=== PATIENT | female | born 1960 | race Caucasian/White ===

== ENCOUNTER 2019-12-03 14:25 | Outpatient (CLI) | payer BC, SELFPAY ==
--- NOTE | 2019-12-03 15:00 | MM_ITS ---
WS: [id number] BILATERAL SCREENING DIGITAL MAMMOGRAM WITH CAD HISTORY: SCREEN COMPARISON: 10/21/2018 and 07/21/2017 Bilateral CC and MLO views submitted. Computer aided detection analyzed. Breast composition: There are scattered areas of fibroglandular density. No suspicious masses, microc alcifications or architectural distortion. Benign scattered calcifications within each breast. MM/[place] [id number] IMPRESSION: BI-RADS: 2-Benign FOLLOW UP: 1 Year Follow-up
== END 2019-12-03 14:26 | disposition home or self-care (01) ==
LOC: RADSHAW 14:51
PROVIDERS: Family Provider Nurse Practitioner; PCP Family Medicine; Visit Provider Family Medicine
DX: Z12.31 Encounter for screening mammogram for malignant neoplasm of breast (principal)
CPT/HCPCS: 77067

== ENCOUNTER → 2020-09-11 14:32 | Outpatient (BNVA) | payer BC, SELFPAY | PROVIDERS: Family Provider Nurse Practitioner; PCP Family Medicine; Visit Provider Nurse Practitioner Family | DX: Z11.59 Encounter for screening for other viral diseases (principal); Z20.828 Contact with and (suspected) exposure to other viral communicable diseases; J06.9 Acute upper respiratory infection, unspecified | CPT/HCPCS: 87635 ==

== ENCOUNTER 2020-10-25 12:18 | Outpatient (RCR) | payer BC, SELFPAY | END 2020-10-30 23:59 | disposition home or self-care (01) | LOC: SPT 12:18 | PROVIDERS: Family Provider Nurse Practitioner; PCP Family Medicine; Referring Provider Orthopaedic Surgery; Visit Provider Orthopaedic Surgery | DX: M22.2X1 Patellofemoral disorders, right knee (principal); M22.2X2 Patellofemoral disorders, left knee | CPT/HCPCS: 97110; 97162 ==

== ENCOUNTER 2020-10-31 06:00 | Outpatient (RCR) | payer BC, SELFPAY | END 2020-11-30 23:59 | disposition home or self-care (01) | LOC: SPT 06:00 | PROVIDERS: Family Provider Nurse Practitioner; PCP Family Medicine; Referring Provider Orthopaedic Surgery; Visit Provider Orthopaedic Surgery | DX: M22.2X2 Patellofemoral disorders, left knee (principal); M22.2X1 Patellofemoral disorders, right knee | CPT/HCPCS: 97110 ==

== ENCOUNTER 2021-03-19 11:08 | Outpatient (CLI) | payer BC, SELFPAY ==
--- NOTE | 2021-03-19 11:21 | XRR_ITS ---
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 Views: 2 views. COMPARISON: 1. CR Chest 2 views* [id number] 09/30/2017 10:49 AM 2. CR Chest 2 views* [id number] 04/12/2014 2:45:36 PM FINDINGS: Tubes, catheters and devices: Thoracic neurostimulator. Lungs: No consolidation. Postoperative change in the right upper lung. Stable small benign right upper lobe granuloma. Pleural spaces: Unremarkable. No pleural effusion. No pneumothorax. Heart/Mediastinum: Unremarkable. No cardiomegaly. Bones/joints: Old thoracic compression fractures. Postoperative change in the distal right clavicle. XR/XR chest 2V* [id number] IMPRESSION: No acute findings.
== END 2021-03-19 11:09 | disposition home or self-care (01) ==
LOC: RAD 11:14
PROVIDERS: PCP Family Medicine; Visit Provider Family Medicine
DX: R07.9 Chest pain, unspecified (principal); R91.1 Solitary pulmonary nodule
CPT/HCPCS: 71046

== ENCOUNTER 2021-04-06 08:45 | Outpatient (CLI) | payer BC, SELFPAY ==
--- NOTE | 2021-04-06 08:55 | CT_ITS ---
WS: [id number] CT scan of the left elbow. Additional two-dimensional coronal and sagittal reconstruction was perform ed. 04/06/2021 Clinical Data: LOOSE BODY LEFT ELBOW JOINT Comparison: None. DLP: 555.[address] scans at [facility] use at least one of these dose optimization techniques: automat ed exposure control; mA and/or kV adjustment per patient size (includes targeted exams where dose is matched to clinical indication); or iterative reconstruction. Findings: There are 2 calcifications in the left elbow. One is adjacent to the coronoid process of the ulna italo suring 0.2 x 1.0 cm. There is a second smaller calcification measuring 0.2 cm between the coronoid pr ocess and the radial head. There are no fractures or dislocations. No bone destruction or erosion is seen. The soft tissues are normal. CT/CT elbow LT wo con* 10002 Impression: 1. Two small calcifications in the left elbow joint. 2. One calcification is adjacent to the coronoid process measuring 0.2 x 1.0 cm and the other is 0.2 cm lying between the coronoid process and the radial head .
== END 2021-04-06 08:46 | disposition home or self-care (01) ==
PROVIDERS: PCP Family Medicine; Visit Provider Orthopaedic Surgery
DX: M24.022 Loose body in left elbow (principal)
CPT/HCPCS: 73200

== ENCOUNTER 2021-04-23 08:02 | Outpatient (CLI) | payer BC, SELFPAY ==
--- NOTE | 2021-04-23 08:11 | XR_ITS ---
WS: [id number] Exam: XR chest 2V* [id number] Date/Time of Exam: 04/23/2021 8:12 AM Reason For Exam: PRE OP Comparison 03/19/2021. The lungs are fully expanded and clear. Normal cardiomediastinal structures. Bony elements are intact . Neurostimulator electrodes are noted in the region of the thoracic spine. Surgical excision of the distal right clavicle. XR/XR chest 2V* [id number] IMPRESSION: 1. No acute cardiopulmonary finding. Pulmonary hyperinflation.
[2021-04-23 08:37] LABS: Basophils % 0.3 %; Eosinophils # 0.3 10^3/uL (0.0-0.8); Eosinophils % 5.1 %; Hematocrit 38.7 % (37.0-47.0); Hemoglobin 11.9 g/dL (11.5-15.3); Lymphocytes # 1.4 10^3/uL (0.8-4.8); Lymphocytes % 22.9 %; Mean Corpuscular HGB Conc 30.7 g/dL (30.0-36.0); Mean Corpuscular Hemoglobin 28.9 pg (28.0-34.0); Mean Corpuscular Volume 93.9 fL (81-99); Mean Platelet Volume 9.7 fL (7.4-10.4); Monocytes # 0.5 10^3/uL (0.2-0.9); Monocytes % 7.5 %; Neutrophils # 4.04 10^3/uL (1.8-7.7); Nucleated Red Blood Cells % 0 %; Platelet Count 260 10^3/cmm (130-400); Red Blood Count 4.12 10^6/uL (4.1-5.3); Red Cell Distribution Width 14.9 % (12.1-15.1); White Blood Count 6.3 10^3/uL (4.0-10.0)
--- NOTE | 2021-04-23 08:37 | ECG_ITS ---
[facility] ED Test Date: 2021-04-23 Pat Name: Marielle Stark Department: Room: Gender: Female Senior Physician: : 1960 Requested By: Lg Cadena Order Number: [id number] Shanti MD: Orly Liriano M.D. Measurements Intervals [place] Rate: 78 P: 35 W[place]: 174 QRS: 0 QRSD: 89 T: 18 QT: 362 QTc: 414 Interpretive Statements SINUS RHYTHM POSSIBLE RIGHT VENTRICULAR CONDUCTION DELAY [RSR (QR) IN V1/V2] No previous ECG available for comparison Electronically Signed On 04-24-2021 18:42:15 CDT by Orly Liriano M.D. [email or web address] [email or web address] [email or web address]/store/[id number]
[2021-04-23 08:53] LABS: Anion Gap 14.1 (5-19); Blood Urea Nitrogen 13 mg/dL (8-23); Calcium 8.6 mg/dL (8.5-10.5); Carbon Dioxide 21 mmol/L (22-29); Chloride 111 mmol/L (98-107); Glomerular Filtration Rate 72.9 mL/min (90-130); Glucose 85 mg/dL (65-115); Osmolality Calculated 293 mOsm/kg (285-295); Potassium 4.1 mmol/L (3.5-5.1); Sodium 142 mmol/L (136-145)
== END 2021-04-23 08:03 | disposition home or self-care (01) ==
LOC: RAD 08:06
PROVIDERS: PCP Family Medicine; Visit Provider Orthopaedic Surgery
DX: Z01.818 Encounter for other preprocedural examination (principal); M25.522 Pain in left elbow
CPT/HCPCS: 36415; 71046; 80048; 85025; 93005

== ENCOUNTER 2021-05-24 11:52 | Outpatient (CLI) | payer BC, SELFPAY ==
--- NOTE | 2021-05-24 11:55 | MM_ITS ---
WS: [id number] BILATERAL SCREENING DIGITAL MAMMOGRAM WITH CAD HISTORY: SCREENING COMPARISON: 12/03/2019 and 10/21/2018 Bilateral CC and MLO views submitted. Computer aided detection analyzed. Breast composition: There are scattered areas of fibroglandular density. No suspicious masses, microc alcifications or architectural distortion. Benign scattered calcifications in each breast. MM/[place] [id number] IMPRESSION: BI-RADS: 2-Benign FOLLOW UP: 1 Year Follow-up
== END 2021-05-24 11:53 | disposition home or self-care (01) ==
LOC: RADSHAW 11:54
PROVIDERS: PCP Family Medicine; Visit Provider Family Medicine
DX: Z12.31 Encounter for screening mammogram for malignant neoplasm of breast (principal)
CPT/HCPCS: 77067

== ENCOUNTER 2022-06-21 09:22 | Outpatient (CLI) | payer OTHER, SELFPAY ==
--- NOTE | 2022-06-21 09:36 | MM_ITS ---
WS: [id number] SCREENING DIGITAL BREAST TOMOSYNTHESIS MAMMOGRAM WITH CAD HISTORY: SCREENING COMPARISON: 05/24/2021 Bilateral CC and MLO with tomosynthesis views submitted. Synthetic mammography reviewed. Computer aid ed detection analyzed. Breast composition: The breasts are almost entirely fatty. No suspicious masses, microcalcifications or architectural distortion. Benign calcifications in each breast. MM/[place] [id number] IMPRESSION: BI-RADS: 2-Benign FOLLOW UP: 1 Year Follow-up
== END 2022-06-21 09:23 | disposition home or self-care (01) ==
PROVIDERS: PCP Family Medicine; Visit Provider Family Medicine
DX: Z12.31 Encounter for screening mammogram for malignant neoplasm of breast (principal)
CPT/HCPCS: 77063; 77067

== ENCOUNTER 2022-06-25 09:12 | Outpatient (CLI) | payer OTHER, SELFPAY ==
--- NOTE | 2022-06-25 09:16 | MR_ITS ---
WS: [id number] MRI LUMBAR SPINE WITH CONTRAST TECHNIQUE: Sagittal T1, T2 and STIR imaging. Axial T1 and T2 imaging. Post gadolinium imaging was obt ained. CLINICAL INFORMATION: POST LAMINECTOMY SYNDROME COMPARISON: MRI 2007. CT 2018. No recent MRI studies. FINDINGS: Mild lumbar curve. No acute compression. No high-grade central canal stenosis. Disc space narrowing w orse at L2-L3 and L3-L4. No evidence of epidural abscess or drainable epidural fluid collection. Hist ory of spinal stimulator removal. L1-L2: Normal. L2-L3: Mild annular bulging with narrowing of the RIGHT greater than LEFT subarticular recess. Mild f acet arthropathy. Foramen are patent. L3-L4: Mild annular bulging with osteophytic ridging. Impingement on the RIGHT subarticular recess an d traversing RIGHT L4 nerve root. Small RIGHT foraminal protrusion with annular fissure. Mild RIGHT a nd no significant LEFT foraminal narrowing. Mild facet arthropathy. L4-L5: Mild disc bulging with narrowing of the subarticular recess bilaterally. Spinal canal is paten t. Mild facet arthropathy. Eccentric disc bulging and osteophytic ridging results in moderate LEFT an d mild RIGHT foraminal narrowing. Remote LEFT hemilaminectomy at this level. L5-S1: Disc osteophytic ridging with impingement on traversing LEFT S1 nerve root. Mild facet arthrop athy. Foramen are patent. 1.7 cm RIGHT renal cyst. No abnormal gadolinium enhancement. No evidence of epidural or paravertebral fluid collection or abscess. Visualized pelvic bony structures: Normal. Paravertebral soft tissues: Normal. Disposition narrowing especially changes progressed compared to the prior MRI in 2007. MR/MR lumbar spine wo/w con [id number] IMPRESSION: 1. No evidence of enhancing epidural or intrathecal fluid collection or absces s. 2. Mild annular bulging L3-L4 with impingement on the RIGHT subarticular reces s and traversing RIGHT L4 nerve root. Small RIGHT foraminal protrusion at this level impinges the exiting RIGHT L3 nerve root with a small annular fissure. 3. Narrowing of the subarticular recess bilaterally at L4-L5 worse LEFT with m oderate LEFT L4-L5 foraminal narrowing. 4. Mild disc bulge L5-S1 with slight impingement traversing LEFT S1 nerve root . 5. Slight retrolisthesis L2 on L3 with narrowing of the RIGHT greater than LEF T subarticular recess. 6. Moderate facet arthropathy L5-S1.
--- NOTE | 2022-06-25 09:23 | MR_ITS ---
WS: [id number] MRI THORACIC SPINE WITHOUT CONTRAST TECHNIQUE: Sagittal T1, T2 and STIR imaging. Axial T2 imaging. Noncontrast imaging obtained. CLINICAL INFORMATION: PAIN IN THORACIC SPINE COMPARISON: None. FINDINGS: Mild thoracic curve. Mild thoracic kyphosis. No acute compression. No high-grade central canal narrow ing. Cord signal is normal. A few tiny shallow disc protrusions in the mid and upper thoracic spine w ithout significant central canal stenosis. Moderate facet arthropathy lower thoracic spine. Small shallow disc protrusions at T6-T7, T7-T8, and T8-T9. Mild RIGHT T10-T11 bony foraminal narrowin g. Normal caliber abdominal aorta. Adrenal glands are normal. 2.1 cm RIGHT renal cyst. Small esophageal hernia. MR/MR thoracic spin wo con* [id number] IMPRESSION: 1. Mild thoracic curve. Mild thoracic kyphosis. 2. No significant central canal stenosis. Cord signal is normal. 3. A few tiny shallow disc protrusions in the mid and upper thoracic spine wit hout significant central canal stenosis. 4. Mild to moderate facet arthropathy lower thoracic spine.
[2022-06-25] MEDS: gadobenate dimeglumine 5 mL vial IV (11:32)
== END 2022-06-25 09:13 | disposition home or self-care (01) ==
LOC: RAD 09:12
PROVIDERS: PCP Family Medicine; Visit Provider Anesthesiology Pain Medicine
DX: M96.1 Postlaminectomy syndrome, not elsewhere classified (principal); M51.24 Other intervertebral disc displacement, thoracic region; M47.814 Spondylosis without myelopathy or radiculopathy, thoracic region; M47.817 Spondylosis without myelopathy or radiculopathy, lumbosacral region; M51.27 Other intervertebral disc displacement, lumbosacral region; M51.26 Other intervertebral disc displacement, lumbar region
CPT/HCPCS: 72146; 72158

== ENCOUNTER 2023-02-21 07:07 | Outpatient (CLI) | payer OTHER, SELFPAY ==
--- NOTE | 2023-02-21 07:23 | USCV_ITS ---
Marielle Stark Age: 62 Gender: F : 1960 Exam Date: 02/21/2023 07:34 Ordering Phys: Hien Aguilera MD Technologist: JOHAN Exam Location: [facility] [place] Indication: edema, chest pain BP: / HR: 71 Rhythm: Sinus Technical Quality: Adequate MEASUREMENTS (Male / Female) Normal Values 2D ECHO LV Diastolic Diameter PLAX 4.3 cm 4.2 - 5.9 / 3.9 - 5.3 cm LV Systolic Diameter PLAX 2.8 cm IVS Diastolic Thickness 0.4 cm 0.6 - 1.0 / 0.6 - 0.9 cm IVS Systolic Thickness 0.9 cm LVPW Diastolic Thickness 0.5 cm 0.6 - 1.0 / 0.6 - 0.9 cm LVPW Systolic Thickness 0.9 cm LVOT Diameter 2.1 cm LV Ejection Fraction 2D Teich 66.4 % LV Ejection Fraction MOD 2C 68.2 % LV Ejection Fraction 2C AL 67.7 % LA Diameter 2.8 cm IVC Diameter 0.8 cm M-MODE Aortic Annulus Diameter 2.8 cm LA Ao Ratio MM 1.0 MV E Point Septal Separation 1.3 cm DOPPLER AV Peak Velocity 123.0 cm/s LVOT Peak Velocity 96.0 cm/s AV Area Cont Eq vti 2.3 cm squared AV Area Cont Eq pk 2.6 cm squared MV Area PHT 3.3 cm squared Mitral E to A Ratio 1.1 MV E' Velocity 48.0 cm/s Mitral E to MV E' Ratio 6.8 Mitral E to LV E' Lateral Ratio 6.0 Mitral E to LV E' Septal Ratio 7.8 TR Peak Velocity 138.3 cm/s TR Peak Gradient 7.7 mmHg Right Atrial Pressure 3.0 mmHg Pulmonary Artery Systolic Pressu 10.7 mmHg PV Peak Velocity 62.0 cm/s FINDINGS Left Ventricle Left ventricle is normal in size. LV systolic function is normal with EF of 55 to 60%. No regional wall motion abnormalities are seen Right Ventricle Normal in size and function. Right Atrium Normal in size Left Atrium Normal in size Mitral Valve Mild mitral annular calcification is seen. Mild mitral regurgitation. Aortic Valve Structurally normal aortic valve. No significant stenosis or regurgitation. Tricuspid Valve Trace tricuspid regurgitation. Insufficient TR jet to calculate RVSP Pulmonic Valve Not well-visualized Pericardium Normal Aorta Normal in size IVC Appears to be normal CONCLUSIONS LV systolic function is normal with EF 55 to 60% Mild mitral regurgitation Trace tricuspid regurgitation No comparison studies are available. Eladio Dueñas MD (Electronically Signed) Final Date: 06 March 2023 14:55 S
[2023-02-21 08:09] VITALS: BMI 26.4
--- NOTE | 2023-02-21 08:32 | ECG_ITS ---
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 Interpretive Statements NAME OF STUDY: EXERCISE SESTAMIBI STRESS TEST INDICATION: [Chest Pain, ] EXERCISE DATA: The patient was exercised by [place] protocol. Baseline heart rate was 87 beats per minute. Baseline blood pressure was 96/69 millimeters of mercury. Target heart rate was 133 beats per minute. Maximum heart rate achieved was 137, which was 103% of the target heart rate. Maximum blood pressure was 156/84 millimeters of mercury. Total exercise time was 5 minutes and 1 second. Maximum METs achieved was 7. The reason for ending the test was completion of the protocol. The patient complained of shortness of breath during the stress test, which then resolved at the end of the test. ELECTROCARDIOGRAM: BASELINE: Showed sinus rhythm, normal axis, no significant ST-T changes at the baseline noted. [] EXERCISE: At the peak exercise level, [] No significant ST-T changes suggestive of ischemia noted. [] RECOVERY: During the recovery period, heart rate dropped appropriately. No significant ST-T changes in the recovery suggestive of ischemia noted. [] CONCLUSION: 1. Exercise capacity fair. 2. Heart rate response was appropriate. 3. Blood pressure response was appropriate. 4. Symptoms not suggestive of ischemia. 5. Electrocardiogram portion of the stress test was not suggestive of ischemia. 6. Nuclear scan will be documented separately. Electronically Signed On 03-09-2023 15:25:24 CDT by Eladio Dueñas M.D. [id number]
--- NOTE | 2023-02-21 08:32 | NMCV_ITS ---
NM diana perf SPECT r/s* [id number] Marielle Stark Age: 62 Gender: F : 1960 Exam Date: 02/21/2023 08:30 Ordering Phys: Hien Aguilera MD Technologist: HEATH Sebastian Exam Location: [facility] Indications: CHEST PAIN STRESS TEST [facility] IMAGE PROTOCOL Rest/Stress 1 Exercise Day Radiopharmaceutical Dose (mCi) Administration Site Administered by Rest: Tc-99m 10.3 IV Jeffry Burris, COMBINER Sestamibi Stress:Tc-99m 31.4 IV Jeffry Burris, COMBINER Sestamibi Rest: 21-Feb-2023 60 Discovery 630 Stress: 21-Feb-2023 15 Discovery 630 Radiopharmaceutical was injected at 85 % maximum heart rate. Images obtained in supine and prone position. SPECT RESULTS Technical Quality: Excellent Raw Data Analysis: Normal Image Corrections: No attenuation or motion correction applied Summed Stress Score: 0 Summed Rest Score: 2 Summed Difference Score: 0 PERFUSION FINDINGS SPECT images demonstrate homogeneous tracer distribution throughout the myocardium. FUNCTIONAL RESULTS (calculated via Gated SPECT) Stress Image LV EF (%): 90 Stress EDV (mL):60 TID: 0.77 Stress ESV (mL):6 FUNCTIONAL FINDINGS: There is normal left ventricular systolic function. IMPRESSIONS 1. Normal myocardial perfusion imaging with no evidence of ischemia 2. LV systolic function is normal Eladio Dueñas MD (Electronically Signed) Final Date: 23 February 2023 08:46 S
[2023-02-21 09:45] VITALS: BP 129/83; PULSE 86
== END 2023-02-21 07:08 | disposition home or self-care (01) ==
PROVIDERS: PCP Family Medicine; Visit Provider Family Medicine
DX: R07.9 Chest pain, unspecified (principal); R60.9 Edema, unspecified; I08.1 Rheumatic disorders of both mitral and tricuspid valves
CPT/HCPCS: 36415; 78452; 93017; 93306; A9500

== ENCOUNTER 2023-08-11 11:16 | Outpatient (CLI) | payer OTHER, SELFPAY ==
--- NOTE | 2023-08-11 11:25 | MM_ITS ---
WS: [id number] VIEWS: MLO and CC views both breasts. 3D digital tomosynthesis is also included in this exam. Comparison made with prior exam of 07/04/2016, 07/21/2017, 10/21/2018, 12/03/2019, 05/24/2021, 06/21/2022.. Findings: There was no sign of mass, architectural distortion or suspicious calcification in either breast. The breasts are almost entirely fatty Impression: MM/[place] [id number] BI-RADS: 2-Benign FOLLOW-UP: 1 Year Follow-up This mammogram was also analyzed by the Computer Aided Detection System R2 Imag e Hearing Screener.
== END 2023-08-11 11:17 | disposition home or self-care (01) ==
PROVIDERS: PCP Family Medicine; Visit Provider Family Medicine
DX: Z12.31 Encounter for screening mammogram for malignant neoplasm of breast (principal)
CPT/HCPCS: 77063; 77067

== ENCOUNTER 2023-11-06 12:56 | Outpatient (CLI) | payer OTHER, SELFPAY ==
--- NOTE | 2023-11-06 13:05 | XR_ITS ---
WS: [id number] PA and lateral chest, 11/06/2023 Clinical Data: ACUTE COUGH Comparison: Two-view chest, 04/23/2021 Findings: There is a patchy opacity extending from the right hilum into the right upper lobe. This op acity could represent pneumonia, atelectasis or postobstructive atelectasis from a lung mass. The lef t lung remains clear. No nodules, masses or effusions are seen. No pneumothorax is seen. The diaphra gms are flattened. The heart is normal. The aortic arch is tortuous. Impression: 1. Patchy opacity extending from right hilum into the right upper lobe and recommend follow-up chest x-ray in 2 to [address] scan of the chest. 2. Atherosclerosis and hyperinflation.
== END 2023-11-06 12:57 | disposition home or self-care (01) ==
LOC: RAD 12:58
PROVIDERS: PCP Family Medicine; Visit Provider Family Medicine
DX: R05.1 Acute cough (principal); R91.8 Other nonspecific abnormal finding of lung field
CPT/HCPCS: 71046

== ENCOUNTER 2023-11-10 10:27 | Outpatient (CLI) | payer OTHER, SELFPAY ==
--- NOTE | 2023-11-10 10:34 | XR_ITS ---
WS: [id number] Exam: XR chest 2V* [id number] Date/Time of Exam: 11/10/2023 10:45 AM Reason For Exam: ACUTE COUGH Comparison 11/06/2023. Again noted is a masslike density with atelectasis in the RIGHT upper lobe. No change. There are surg ical sutures in this region. The lungs are otherwise hyperinflated and clear. Normal cardiomediastina l silhouette. Regional bony elements are intact. Excision of the distal RIGHT clavicle. Degenerative change and thoracolumbar scoliosis. IMPRESSION: 1. Masslike density with atelectasis in the RIGHT upper lobe unchanged since previous exam. Underlyin g mass with atelectasis could have this appearance. 2. Pulmonary hyperinflation.
== END 2023-11-10 10:28 | disposition home or self-care (01) ==
PROVIDERS: PCP Family Medicine; Visit Provider Family Medicine
DX: R05.9 Cough, unspecified (principal); R91.8 Other nonspecific abnormal finding of lung field; J98.11 Atelectasis
CPT/HCPCS: 71046

== ENCOUNTER 2023-11-14 13:50 | Outpatient (CLI) | payer OTHER, SELFPAY ==
--- NOTE | 2023-11-14 14:05 | CT_ITS ---
WS: [id number] CT scan of the chest with IV contrast, additional two-dimensional coronal and sagittal reconstruction was performed. 11/14/2023 Clinical Data: ABNORMAL CHEST XRAY Comparison: Two-view chest, 11/10/2023 DLP: 229.[address] scans at [facility] use at least one of these dose optimization techniques: automated e xposure control; mA and/or kV adjustment per patient size (includes targeted exams where dose is matc hed to clinical indication); or iterative reconstruction. Findings: There is a right upper lobe density extending from the right hilum to the lung periphery with irregul ar borders. The lesion measures 4.4 x 5.9 cm. No nodules or effusions are seen. The heart size is normal with no pericardial effusion. The trachea bifurcates into the bronchi. The pulmonary arterial system and thoracic aorta demonstrate no abnormal ities or dilatations. There is no axillary or significant mediastinal adenopathy. There is mild osteo arthritis of the thoracic vertebral bodies. The upper abdomen shows postsurgical changes of the gastroesophageal junction and stomach. There are cholecystectomy clips in the right upper quadrant. There is a 1.9 cm intrarenal cyst of the right kid casey. Impression: 1. Right upper lobe 5.9 cm lesion suspicious for cancer of the lung. 2. Recommend biopsy of the lesion.
[2023-11-14 14:40] LABS: Blood Urea Nitrogen 14 mg/dL (8-23)
[2023-11-14] MEDS: iohexol 350 mg/mL 500 mL Btl (per mL) IV (15:31)
== END 2023-11-14 13:51 | disposition home or self-care (01) ==
LOC: RAD 13:50
PROVIDERS: PCP Family Medicine; Visit Provider Family Medicine
DX: R91.8 Other nonspecific abnormal finding of lung field (principal)
CPT/HCPCS: 71260; 82565; 84520; Q9967

== ENCOUNTER 2023-12-08 05:46 | Day surgery (SDC) | payer OTHER, SELFPAY ==
--- OUTSIDE RECORDS SUMMARY | 2023-11-28 11:21 | XMS_ITS | Patient Health Record ---
Author Name Unknown Organization [facility] Address [address] [place], [place] [id number] Care Team Providers Care Booster Plant Operator Name Role Phone Jaime FUR POINTER, Lanette Primary Care Provider Unavaillianne Mcdonnell MD, Kaden Unavailable [phone] Addis RAMOS, Boaz Unavailable Unavailable Jace MUELLERP, Leyla Unavailable [phone] ALLERGIES Allergen (clinical drug ingredient) Drug/Non Drug Allergy documented on EMR Reaction Allergy Type Onset Date Status codeine codeine Unknown Drug Allergy Active morphine morphine headache Drug Allergy Active celecoxib Celebrex rash Drug Allergy Active benzoin topical blisters Drug Allergy A ctive RESULTS Component Value Reference Range Notes Urine tox screen / MS if ind icated Reviewed date:11/06/2023 07:56:06 AM Interpretation:Consistent Performing Lab: Notes/Report: Consistent Urine tox screen / MS if ind icated Reviewed date:02/06/2023 12:38:27 PM Interpretation: Performing Lab: Notes/Report: REASON FOR REFERRAL No Information MEDICATIONS Medication SIG (Take, Route, Frequency, Duration) Notes Start Date End Date Status Narcan 4 mg/0.1 mL as directed intranasally once 02/01/2020 Active cyclobenzaprine 10 mg 1 tab orally Q8H prn spasm for 28 days Active ferrous sulfate 325 mg 1 tab orally 3 times a day Active oxyCODONE 5 mg 1/2 - 1 tab orally Q24H prn severe pain (hold within 4H of planned sleep) for 30 day(s) 08/07/2023 Active ondansetron 4 mg 1 tab orally Q8H prn nausea for 28 days Active fluticasone nasal 50 mcg/inh 1 spray intranasally once a day Active potassium chloride 10 mEq 1 tab(s) orally 2 times a day for 30 day(s) Active azithromycin 250 mg 2 tablets on the first day, then 1 tablet daily for 4 days 11/06/2023 Active nitroglycerin 0.4 mg 1 tab(s) sublingually every 5 minutes Active oxyCODONE 5 mg 1/2 - 1 tab orally Q24H prn severe pain (hold within 4H of planned sleep) for 28 days Do not fill prior to 12/04/23. ICD-10: G89.29 11/06/2023 Active Lidoderm 5% 1-3 patches applied topically 12H on / 12H off for 30 day(s) not covered by insurance 05/01/2021 Active Vitamin B-12 1000 mcg 1 tab(s) orally once a day for 30 day(s) Active Topamax 100 mg 1 tab orally Q12H prn nerve pain for 28 days 11/06/2023 Active lovastatin 40 mg 1 tab orally once a day for 30 day(s) Active acetaminophen-hydrocodo ne 325 mg-10 mg 1-2 tabs orally Q4-6H prn pain (max 8/day; hold within 4H of planned sleep) for 28 days Approved for early fill on 11/28/23. ICD-10: G89.29 11/06/2023 Active furosemide 20 mg 1 tab(s) orally once a day for 30 day(s) 08/07/2023 Active predniSONE 20 mg 1 tab(s) orally once a day for 7 day(s) Active acetaminophen-hydrocodo ne 325 mg-10 mg 1-2 tabs orally Q4-6H prn pain (max 8/day; hold within 4H of planned sleep) for 28 days Do not fill prior to 12/26/23. ICD-10: G89.29 11/06/2023 Active lidocaine topical 5% 1-3 patches applied topically 12H on / 12H off Active Topiragen 100 mg 1 tab orally Q12H prn nerve pain for 30 day(s) Active ALPRAZolam 1 mg 1 tab PO orally prn Active melatonin 3 mg 1 tab orally once (at bedtime) Active acetaminophen-hydrocodo ne 325 mg-10 mg 1-2 tabs orally Q4-6H prn pain (max 8/day; hold within 4H of planned sleep) for 30 day(s) 08/07/2023 Active meloxicam 15 mg 1 tab orally once a day Active SOCIAL HISTORY Tobacco Use: Social History Observation Description Date Details (start date - stop date) Never Smoker NA - NA Sex Assigned At : Social History Observation Description Sex Assigned At Unknown alcohol Question Answer Notes Did you have a drink containing alcohol in the p ast year? No Points 0 Interpretation Negative Tobacco use: Question Answer Notes : nonsmoker PROBLEMS Problem Type ICD Code Onset Dates Problem Status W/U Status Risk SNOMED Code Notes Problem Sacroiliitis (720.2) Active confirmed Solitary sacroiliitis (947853578) Problem Lumbosacral spondylosis without myelopathy (721.3) Active confirmed Lumbosacral spondylosis without myelopathy (00285927) Problem Lumbar (w/out myelopathy) intervertebral disc disorder (722.10) Active confirmed Displacement of lumbar intervertebral disc without myelopathy (00632930) Problem LONG-TERM USE MEDS NEC (V58.69) Active confirmed Long-term drug therapy (300434443) R/O substance abuse Problem Anxiety State, other, specified: procedure related (300.09) Active confirmed Anxiety state (054703877) Problem Postlaminectomy syndrome of lumbar region (722.83) Active confirmed Lumbar post-laminectomy syndrome (239665275) Problem Low back pain (724.2) Active confirmed Low back pain (585743061) Problem Sacroiliitis, not elsewhere classified (M46.1) Active confirmed Solitary sacroiliitis (153062747) Problem Low back pain (M54.5) Active confirmed Low back pain (841529982) Problem Other intervertebral disc displacement, lumbar region (M51.26) Active confirmed Displacement of lumbar intervertebral disc without myelopathy (06916431) Problem Spondylosis without myelopathy or radiculopathy, lumbar region (M47.816) Active confirmed Lumbosacral spondylosis without myelopathy (72652253) Problem halfway (current) use of opiate analgesic (Z79.891) Active confirmed High risk drug monitoring status (178480344) Problem Enthesopathy, unspecified (M77.9) Active confirmed Enthesopathy (60018430) Problem Other specified anxiety disorders (F41.8) Active confirmed Anxiety disorde r (685648714) Problem Other sleep disorders (G47.8) Active confirmed Sleep diso rder (19871767) Problem Other chronic pain (G89.29) Active confirmed Chronic pain (85335762) Problem Hallux valgus (acquired), unspecified foot (M20.10) Active confirmed Acquired hallux valgus (22164386) Problem Intervertebral disc disorders with radiculopathy, lumbar region (M51.16) Active confirmed Radiculopathy due to lumbar intervertebral disc disorder (848042823031494 ) Problem Pain in thoracic spine (M54.6) Active confirmed Pain in thorac ic spine (386711670) Problem Fibromyalgia (M79.7) Active confirmed Fibromyalgia (246131670) Problem Postlaminectomy syndrome, not elsewhere classified (M96.1) Active confirmed Post-laminectom y syndrome (67381865) Problem Spinal stenosis, lumbar region without neurogenic claudication (M48.061) Active confirmed Spinal stenosis of lumbar region (32321553) Problem Myalgia, other site (M79.18) Active confirmed Muscle pain (14413089) Problem Headache, unspecified (R51.9) Active confirmed Headache (68617977) Problem Vertebrogenic low back pain (M54.51) Active confirmed Vertebrogenic pain syndrome (539486512) VITAL SIGNS Temperature 94.2 degrees Fahrenheit 11/06/2023 Oximetry 98 % 11/06/2023 Height 65 in 11/06/2023 Weight 144.4 lbs 11/06/2023 BMI 24.03 kg/m2 11/06/2023 Encounters Encounter Location Date Provider Diagnosis [facility], [address] [place], [place] [id number] 02/06/2023 Kaden Mcdonnell Myalgia, other site M79.18 ; Postlaminectomy syndrome, not elsewhere classified M96.1 ; Vertebrogenic low back pain M54.51 ; Sacroiliitis, not elsewhere classified M46.1 ; Intervertebral disc disorders with radiculopathy, lumbar region M51.16 ; Spondylosis without myelopathy or radiculopathy, lumbar region M47.816 ; Spinal stenosis, lumbar region without neurogenic claudication M48.061 ; Pain in thoracic spine M54.6 ; Enthesopathy, unspecified M77.9 ; Other sleep disorders G47.8 and halfway (current) use of opiate analgesic Z79.891 [facility], [facility] [address] [place], [place] [id number] 05/08/2023 Leyla Mccormick Vertebrogenic low ba ck pain M54.51 ; Other chronic pain G89.29 and Myalgia, other site M79.18 [facility] [address] [place], [place] [id number] 08/07/2023 Leyla Mccormick Vertebrogenic low ba ck pain M54.51 ; Other chronic pain G89.29 ; Postlaminectomy syndrome, not elsewhere classified M96.1 and Myalgia, other site M79.18 [facility] [address] [place], [place] [id number] 11/06/2023 Leyla Mccormick Vertebrogenic low ba ck pain M54.51 ; Other chronic pain G89.29 ; Postlaminectomy syndrome, not elsewhere classified M96.1 ; Myalgia, other site M79.18 and buttermaker helper (current) use of opiate analgesic Z79.891 ASSESSMENTS Encounter Date Diagnosis Assessment Notes Treatment Notes Treatment Clinical Notes 02/06/2023 Myalgia, other site (ICD-10 - M79.18) TPIs with history of no efficacy appreciated by patient. Relaxant medication use with history of benefit. 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 Plan to continue oral opioid medication management 08/07/2023 Vertebrogenic low back pain (ICD-10 - M54.51) Chronic lumbar axial pain 11/06/2023 Vertebrogenic low back pain (ICD-10 - M54.51) Chronic lumbar axial pain. 11/06/2023 Other chronic pain (ICD-10 - G89.29) Patient reports that taking her pain medication allows her to continue working with greater ease. Plan to continue oral opioid medication management. 11/06/2023 Postlaminectomy syndrome, not elsewhere classified (ICD-10 - M96.1) Patient reports benefit with use of topiramate for her lower extremity nerve pain. Plan to continue. 05/08/2023 Myalgia, other site (ICD-10 - M79.18) Patient reports benefit with use of Flexeril for spasm control. Plan to continue 08/07/2023 Postlaminectomy syndrome, not elsewhere classified (ICD-10 - M96.1) Patient reports benefit with use of topiramate for her lower extremity nerve pain. Plan to continue 02/06/2023 Vertebrogenic low back pain (ICD-10 - M54.51) Oral opioid medication use with history of benefit. Plan to continue medication management 02/06/2023 Postlaminectomy syndrome, not elsewhere classified (ICD-10 - M96.1) Prior referral to Dr. Patino resulted in DCS system explantation. Patient has since had an L4-[address] Patino 02/06/2023 Sacroiliitis, not elsewhere classified (ICD-10 - M46.1) Sacroiliitis as per prior CT scan report and as noted upon exams. Prior right SI joint steroid / local anesthetic injection with history of efficacy appreciated, to include RLE symptom improvement, and that benefit had waned after ~ 1 1/2 years. More recent right SI joint steroid / local anesthetic injection with diagnostic efficacy, however, no subsequent steroid benefit. Could consider sacral denervation procedure via RFA since diagnostic block without lasting steroid efficacy noted, however, patient's insurer at that time had yet to ever authorize or cover sacral RFA procedures from this facility (patient has stated that she cannot afford such a procedure on her own). Patient may elect to repeat the steroid injection as needed / desired by patient (was declined by patient at prior visit) 08/07/2023 Myalgia, other site (ICD-10 - M79.18) Patient reports benefit with use of Flexeril for spasm control. Plan to continue 11/06/2023 Myalgia, other site (ICD-10 - M79.18) Patient reports benefit with use of Flexeril for spasm control. Plan to continue. 11/06/2023 buttermaker helper (current) use of opiate analgesic (ICD-10 - Z79.891) 2022 opioid (OUD) risk tool score = 3. This places the patient in the high risk category, warranting more frequent screening. Plan 2 month visits pending continued compliance with her Treatment Agreement. Plan urine toxicology screen today to monitor for presence of any unprescribed or illicit controlled substance(s), as well as prescribed hydrocodone. 02/06/2023 Intervertebral disc disorders with radiculopathy, lumbar region (ICD-10 - M51.16) Have discussed ESIs with patient at past visit. Patient previously declined / deferred on this treatment option 02/06/2023 Spondylosis without myelopathy or radiculopathy, lumbar region (ICD-10 - M47.816) 02/06/2023 Spinal stenosis, lumbar region without neurogenic claudication (ICD-10 - M48.061) 02/06/2023 Pain in thoracic spine (ICD-10 - M54.6) Mild thoracic curve and mild thoracic kyphosis, no significant central canal stenosis and cord signal is normal, a a few tiny shallow disc protrusions in the mid and upper thoracic spine without significant central canal stenosis and mild to moderate facet arthropathy lower thoracic spine as per 06/25/22 MRI report. Patient has reported of an order for CT/myelogram (by Dr. Patino). Oral opioid medication use with history of benefit. Plan to continue medication management 02/06/2023 Enthesopathy, unspecified (ICD-10 - M77.9) Tendon steroid injection of left triceps with history of no efficacy appreciated 02/06/2023 Other sleep disorder s (ICD-10 - G47.8) Have recommended a sleep study. Patient declined / deferred on the prior offer of an order for a sleep study. Plan to restrict opioid usage in relation to sleep: patient has verbalized understanding to hold short-acting opioids within four hours of planned sleep. Patient has been counseled on the risks of sleep apnea (if present), with or without opioids (or other sedatives), and the patient verbalized understanding and acceptance of the increased risk (sleep apnea, respiratory depression, ) associated with sedative / hypnotic / narcotic (opioid) medication use. Patient has been counseled that synergistic risk occurs with concomitant opioid (such as hydrocodone) and sedative (such as alprazolam) usage (see CDC recommendations, below) 02/06/2023 buttermaker helper (current) use of opiate analgesic (ICD-10 - Z79.891) Patient has MED of 87.5. This places the patient in the [facility]' high risk category for opioid usage (not to be confused with the separate potential significant risk in regards to possible sleep apnea, above). Have recommended patient taper daily doses to the lowest number of daily doses that provide effective analgesia. Patient has received the Opioid Analgesic [facility]S Patient Counseling Guide. Patient has had opportunity to read the Guide and ask questions pertaining to the Guide. Patient has received information regarding CDC recommendations related to concomitant opioid and sedative usage. Had recommended patient taper off of alprazolam. In response, patient reported rare use of alprazolam. Patient has been advised on 08/01/20 that due to the [facility] Government concerns and actions, any suspected patient misuse, abuse, or diversion of controlled substances (i.e. opioids/narcotics/pa in killers) WILL result in dissolution of treatment from this clinic. Patients adhering to the concepts contained within the patient's Treatment Agreement will be protected from such termination of care. Patient was given a copy of the Treatment Agreement, signed by patient on 02/01/20. Patient signed an opioid consent form on 02/01/20. Patient has accepted a prescription for Narcan nasal spray. Urine Tox screen today; random screens per protocol 02/06/2023 Other Cardiac work up scheduled for 02/21/23 as per patient report 05/08/2023 Other 08/07/2023 Other 11/06/2023 Other PLAN OF TREATMENT Next Appt Details Provider Name:Kaden Gagnon son, 01/01/2024 07:30:00 AM, [address], [place], [id number], Insurance Providers Payer Name Payer Address Payer Phone Subscriber Number Group Number Insured Name Patient Relationship to Insured Coverage Start Date Coverage End Date [employer] [address] [address] [place] [id number] Marielle Stark Self - patient is the insured MEDICAL (GENERAL) HISTORY Medical History History ICD Code Chronic pain Low back pain Lumbar disc disese, spondylo sis, spinal stenosis, and post-laminectomy syndrome Mid back pain Fibromyalgia Knee pain Shoulder pain Elbow pain Hypothyroidism GI bleeds Pneumonia Surgical History Surgery Date(Month/Year) Lumbar spine x 3, at L4-5, [id number] Gastric bypass Cholecystectomy Tonsillectomy and adenoidectomy Benign tumor removal, right lung Tendon re-attachment, right hand DCS system (with IPG) placement, 8 Carpal tunnel release, right Right shoulder repair, 05/25/09 Knee, bilateral, 07/10/11 Left knee, 05/2013 Bowel blockage, 11/01/13 Bunionectomy along with corn removal, ri ght foot, 05/2016 IPG exchange, 10/2016 Removal of stitches from right foot, 2015 Colonoscopy, performed at [facility] by Dr. Faraz Aguilera, 04/02/18 Left elbow surgery, performed at [facility], 05/02/21 Explantation of DCS system, performed at [facility] by Dr. Patino, 10/10/21 L4-5 ALIF, performed at [facility] by Dr. Ev mir, 11/06/22 Hospitalization History Reason Date(Month/Year) GI bleed, 2003
[2023-12-08] VITALS (9 sets, daily range): BP systolic 97–110; BP diastolic 62–70; PULSE 66–84; RESP 16–27; TEMP 36.1–36.4; O2SAT 97–100; BMI 23.3
--- OUTSIDE RECORDS SUMMARY | 2023-12-08 05:49 | XMS_ITS | Patient Health Record ---
Author Name Unknown Organization [facility] Address [address] [place], [place] [id number] Care Team Providers Care Electroplater Apprentice Name Role Phone Jaime TEST CENTER ADMINISTRATOR, Lanette Primary Care Provider Unavaillianne Mcdonnell MD, Kaden Unavailable [phone] Addis RAMOS, Boaz Unavailable Unavailable Jace MUELLERP, Leyla Unavailable [phone] ALLERGIES Allergen (clinical drug ingredient) Drug/Non Drug [...] date:02/06/2023 12:38:27 PM Interpretation: Performing Lab: Notes/Report: Urine tox screen / MS if ind icated Reviewed date:11/06/2023 07:56:06 AM Interpretation:Consistent Performing Lab: Notes/Report: Consistent REASON FOR REFERRAL No Information MEDICATIONS Medication SIG (Take, Route, Frequency, Duration) Notes Start Date End Date Status acetaminophen-hydrocodo ne 325 mg-7.5 mg 1-2 tabs orally Q4-6H prn pain (max 8/day; hold within 4H of planned sleep) ICD-10: G89.29, (remainder of partial fill) 12/04/2023 Active Narcan 4 mg/0.1 mL as directed intranasally [...] once a day for 30 day(s) Active furosemide 20 mg 1 tab(s) orally [...] Problem Sacroiliitis (720.2) Active confirmed Solitary sacroiliitis (367255467) Problem Lumbosacral spondylosis without myelopathy (721.3) Active confirmed Lumbosacral spondylosis without myelopathy (96402825) Problem Lumbar (w/out myelopathy) intervertebral disc disorder (722.10) Active confirmed Displacement of lumbar intervertebral disc without myelopathy (64977205) Problem LONG-TERM USE MEDS NEC (V58.69) Active confirmed Long-term drug therapy (573088908) R/O substance abuse Problem Anxiety State, other, specified: procedure related (300.09) Active confirmed Anxiety state (574696490) Problem Postlaminectomy syndrome of lumbar region (722.83) Active confirmed Lumbar post-laminectomy syndrome (385711605) Problem Low back pain (724.2) Active confirmed Low back pain (221966836) Problem Sacroiliitis, not elsewhere classified (M46.1) Active confirmed Solitary sacroiliitis (013818108) Problem Low back pain (M54.5) Active confirmed Low back pain (019681741) Problem Other intervertebral disc displacement, lumbar region (M51.26) Active confirmed Displacement of lumbar intervertebral disc without myelopathy (75623082) Problem Spondylosis without myelopathy or radiculopathy, lumbar region (M47.816) Active confirmed Lumbosacral spondylosis without myelopathy (88605362) Problem terminal clerk (current) use of opiate analgesic (Z79.891) Active confirmed High risk drug monitoring status (565727463) Problem Enthesopathy, unspecified (M77.9) Active confirmed Enthesopathy (79780978) Problem Other specified anxiety disorders (F41.8) Active confirmed Anxiety disorde r (041160567) Problem Other sleep disorders (G47.8) Active confirmed Sleep diso rder (11622248) Problem Other chronic pain (G89.29) Active confirmed Chronic pain (17162522) Problem Hallux valgus (acquired), unspecified foot (M20.10) Active confirmed Acquired hallux valgus (19598336) Problem Intervertebral disc disorders with radiculopathy, lumbar region (M51.16) Active confirmed Radiculopathy due to lumbar intervertebral disc disorder (465368682140609 ) Problem Pain in thoracic spine (M54.6) Active confirmed Pain in thorac ic spine (199947258) Problem Fibromyalgia (M79.7) Active confirmed Fibromyalgia (198580355) Problem Postlaminectomy syndrome, not elsewhere classified (M96.1) Active confirmed Post-laminectom y syndrome (66994612) Problem Spinal stenosis, lumbar region without neurogenic claudication (M48.061) Active confirmed Spinal stenosis of lumbar region (41451030) Problem Myalgia, other site (M79.18) Active confirmed Muscle pain (95456390) Problem Headache, unspecified (R51.9) Active confirmed Headache (51175708) Problem Vertebrogenic low back pain (M54.51) Active confirmed Vertebrogenic pain syndrome (573428505) VITAL SIGNS Temperature 94.2 degrees Fahrenheit 11/06/2023 Oximetry 98 % 11/06/2023 Height 65 in 11/06/2023 Weight 144.4 lbs 11/06/2023 BMI 24.03 kg/m2 11/06/2023 Encounters Encounter Location Date Provider Diagnosis [facility] [address] [place], [place] [id number] 02/06/2023 Kaden Mcdonnell Myalgia, other site M79.18 [...] M77.9 ; Other sleep disorders G47.8 and terminal clerk (current) use of opiate analgesic Z79.891 [facility] [address] [place], [place] [id number] 05/08/2023 Leyla Mccormick Vertebrogenic low ba ck pain M54.51 ; Other chronic pain G89.29 and Myalgia, other site M79.18 [facility] [address] [place], [place] [id number] 08/07/2023 Leyla Mccormick Vertebrogenic low ba ck pain M54.51 ; Other chronic pain G89.29 ; Postlaminectomy syndrome, not elsewhere classified M96.1 and Myalgia, other site M79.18 [facility] [address] [place], [place] [id number] 11/06/2023 Leyla Mccormick Vertebrogenic low ba ck pain M54.51 ; Other chronic pain G89.29 ; Postlaminectomy syndrome, not elsewhere classified M96.1 ; Myalgia, other site M79.18 and halfway (current) use of opiate analgesic Z79.891 [facility] [address] [place], [place] [id number] 12/02/2023 Kaden Mcdonnell [facility], [facility] [address] [place], [place] [id number] 12/04/2023 Kaden Mcdonnell ASSESSMENTS Encounter Date Diagnosis Assessment Notes Treatment [...] for spasm control. Plan to continue. 11/06/2023 halfway (current) use of opiate analgesic (ICD-10 - [...] alprazolam) usage (see CDC recommendations, below) 02/06/2023 terminal clerk (current) use of opiate analgesic (ICD-10 - [...] advised on 08/01/20 that due to the Federal Government concerns and actions, any suspected patient [...] Name:Kaden Gagnon son, 01/01/2024 07:30:00 AM, [address] [facility], [place], [place], [id number], Insurance Providers Payer Name Payer Address Payer Phone Subscriber Number Group Number Insured Name Patient Relationship to Insured Coverage Start Date Coverage End Date [employer] [address] [address] [place] [id number] [phone] [id number] Marielle Stark Self - patient is the insured MEDICAL (GENERAL) HISTORY Medical History History ICD Code Chronic pain Low back pain Lumbar disc disese, spondylo sis, spinal stenosis, and post-laminectomy syndrome Mid back pain Fibromyalgia Knee pain Shoulder pain Elbow pain Hypothyroidism GI bleeds Pneumonia Surgical History Surgery Date(Month/Year) Lumbar spine x 3, at L4-5, [id number] Gastric bypass Cholecystectomy Tonsillectomy and adenoidectomy Benign tumor removal, right lung Tendon re-attachment, right hand DCS system (with IPG) placement, 8 Carpal tunnel release, right Right shoulder repair, 05/25/09 Knee, bilateral, 07/10/11 Left knee, 05/2013 Bowel blockage, 11/01/13 Bunionectomy along with corn removal, ri t foot, 05/2016 IPG exchange, 10/2016 Removal of stitches from right foot, 2015 Colonoscopy, performed at [facility] by Dr. Faraz Aguilera, 04/02/18 Left elbow surgery, performed at [facility], 05/02/21 Explantation of DCS system, performed at [facility] by Dr. Patino, 10/10/21 L4-5 ALIF, performed at [facility] by Dr. Ev mir, 11/06/22 Hospitalization History Reason Date(Month/Year) GI bleed, 2003
[2023-12-08] MEDS: sodium chloride 0.9% 1,000 ML 30 ML IV (07:06)
--- NOTE | 2023-12-08 07:20 | W.PM.OPSUD ---
Surgery/Procedure H&P Update DATE OF PROCEDURE: December 08, 2023 DATE H&P PERFORMED: 11/27/23 H&P UPDATE INFORMATION: I have reviewed H&P completed within last 30 days, I have examined patient prior to procedure and No changes to prior documentation CHANGES TO PREVIOUS DOCUMENTATION: NONE PREOP DIAGNOSIS: Suspected malignancy PRIMARY INDICATION FOR PROCEDURE: right lower lobe mass - to rule out malignancy PLANNED PROCEDURE: Operation Date: 12/08/23 07:00 Proposed Procedures p ON/EBUS, 12374, 62135, 47458, 81057, 67217, 37530, 52064, 39122, 77984, 23604, 72727, 35178, 63771, 57291,R91.8(Not Applicable) - Aditya Kovacs MD s Ebus(Not Applicable) - Aditya Kovacs MD
--- NOTE | 2023-12-08 07:24 | ANES.PREANE2 ---
Pre-Anesthetic Assessment Height/Weight: Height 1.65 m Weight 63.503 kg Preop Diagnosis: Suspected malignancy Operation Date: 12/08/23 07:00 Proposed Procedures p ON/EBUS, 48429, 52115, 07817, 36548, 76044, 14700, 88145, 35186, 92563, 39139, 21925, 69340, 07628, 06917,R91.8(Not Applicable) - Aditya Kovacs MD s Ebus(Not Applicable) - Aditya Kovacs MD Familial anesthetic complications: none Was Beta Christopher taken within 24 hours: N/A Was Clonidine taken within 24 hours: N/A Last intake: Intake Last Liquid Date 12/07/23 Last Liquid Time 21:30 Last Solid Date 12/07/23 Last Solid Time 21:30 Social No alcohol and No tobacco Exam alert, oriented x 3, clear to auscultation bilaterally and regular rate & rhythm Airway Submandibular: within normal limits Cervical ROM: within normal limits Mallampati: Class II Dentition: full Pulmonary Lung mass GI Gastroesophageal Reflux Disease Metabolic Hyperlipidemia and Thyroid Disease Neuropsych Anxiety Anesthetic Plan ASA status: 2 Anesthesia: General Medications/Allergies Home Medications Medication Instructions Recorded Confirmed Last Taken Type levothyroxine 125 mcg tablet 125 mcg PO DAILY 09/11/20 12/08/23 12/08/23 History (Synthroid) lovastatin 40 mg tablet 40 mg PO DAILY 09/11/20 12/08/23 12/07/23 History topiramate 100 mg tablet (Topamax) 100 mg PO BID 09/11/20 12/08/23 12/07/23 History conj estrogen-medroxyprogesterone 1 tab PO DAILY 02/02/23 12/08/23 12/07/23 History 0.3 mg-1.5 mg tablet (Prempro) meloxicam 15 mg tablet 15 mg PO DAILY 02/02/23 12/08/23 12/07/23 History alprazolam 0.5 mg tablet 0.5 mg PO Q6H PRN Anxiety 08/01/23 12/08/23 12/07/23 History cyclobenzaprine 10 mg tablet 10 mg PO DAILY 08/01/23 12/08/23 12/07/23 History furosemide 20 mg tablet 20 mg PO DAILY PRN Edema 08/01/23 12/08/23 2 Weeks Ago History ~08/06/23 hydrocodone 10 mg-acetaminophen 1 tab PO Q8H PRN Pain 08/01/23 12/08/23 12/08/23 History 325 mg tablet nitroglycerin 0.4 mg sublingual 0.4 mg sublingual PRN PRN Chest 08/01/23 12/08/23 Unknown History tablet Pain ondansetron 4 mg disintegrating 4 mg PO Q8H PRN Nausea 08/01/23 12/08/23 12/04/23 History tablet oxycodone 5 mg tablet 5 mg PO Q6H PRN Pain 08/01/23 12/08/23 08/18/23 History potassium chloride 10 mEq 10 meq PO PRN 08/01/23 12/08/23 2 Weeks Ago History tablet,extended release ~08/06/23 trazodone 50 mg tablet 50 mg PO DAILY 08/01/23 12/08/23 12/07/23 History pantoprazole 40 mg tablet,delayed 40 mg PO DAILY 11/27/23 12/08/23 12/07/23 History release (Protonix) Allergies Allergy/AdvReac Type Severity Reaction Status Date / Time benzoin Allergy blisters Verified 12/08/23 05:54 codeine Allergy headache Verified 12/08/23 05:54 morphine Allergy headache Verified 12/08/23 05:54 Current Medications Generic Name Dose Route Start Last Admin Trade Name Freq PRN Reason Stop Dose Admin Sodium Chloride 1,000 mls @ 30 mls/hr 12/08/23 07:15 12/08/23 07:06 Sodium Chloride 0.9% IV 12/09/23 07:14 30 mls/hr .Q24H TONI Administration PFSH Anesthesia Social History Smoking and tobacco/nicotine status: never used tobacco/nicotine Data Anesthesia Cardiac Studies: Echocardiogram 02/21/23 Sestamibi Stress Test (Cardiology) 02/21/23
--- NOTE | 2023-12-08 07:35 | SC_ITS ---
WS: [id number] INTRAOPERATIVE TECHNIQUE: 5 Spot fluoroscopic images for intraoperative purposes. FLUOROSCOPY TIME: 78.6 seconds CLINICAL INFORMATION: ION/EBUS COMPARISON: None. FINDINGS: Bronchoscope RIGHT upper lobe bronchus. Images obtained for intraoperative purposes. SC/C-arm FL for Bronchoscopy IMPRESSION: Images obtained for intraoperative purposes.
[2023-12-08] MEDS: lidocaine 1% INJ 10 mL (per mL) 3 ML XX (07:43)
--- NOTE | 2023-12-08 09:08 | XRR_ITS ---
PROCEDURE INFORMATION: Exam: XR Chest Exam date and time: 12/08/2023 9:11 AM Age: 63 years old Clinical indication: Device placement; Other: Bronch; Prior surgery; Surgery date: Post-operative (0-2 days); Additional info: Post bronchoscopy TECHNIQUE: Imaging protocol: Radiologic exam of the chest. Views: 1 view. COMPARISON: CT chest w con* [id number] 11/14/2023 2:39 PM FINDINGS: Lungs: RUL patchy infiltrates/mass noted. See the 11/14/[address] Pleural spaces: No pneumothorax. Heart/Mediastinum: Unremarkable. No cardiomegaly. Bones/joints: Chronic right shoulder deformity. XR/XR chest 1V portable [id number] IMPRESSION: There is no postprocedure pneumothorax identified.
--- NOTE | 2023-12-08 09:16 | P.OP_ITS ---
Operative Report Date of procedure: December 08, 2023 Pre-op diagnosis: Right lower lobe mass suspect malignancy Post-op diagnosis: Right lower lobe mass-suspect malignancy Procedure done: - Dx Bronchoscope w/Washings or airway inspection -Bx Bronchoscope w/Brushings or protected brushings -Dx Bronchoscope w/BAL -Dx Bronchoscopy w/Bronchial or Endobronchial biopsy(s), single or multiple sites -Bronch with computer image guided Navigational Bronchoscopy -Bronchoscopy w/Transbronchial lung biopsy(s), single lobe using forceps -Bronchoscopy w/Transbronchial needle aspiration biopsy(s), tracheal, main stem, and/or lobar bronchus -Bronchoscopy w/ therapeutic aspiration of the tracheobronchial tree (clearance of airway secretions, removal of mucus plugs) -EBUS Sampling 2 nodes Surgeon: Aditya Kovacs MD Complications: None Brief History: Ms. Marielle Stark is 63 year old female with PMH of Referred by Dr. Nikole Aguilera for 5.9 cm mass of right upper lobe. She comes with her . pt C/O pain on inspiration in R rib. She complains of exertional shortness of breath. In October 2023 patient presented to her PCP for acute cough-she had a chest x- ray 11/10/2023-showed masslike density at the tail of the right upper lobe unchanged since previous exam underlying mass with atelectasis could have this appearance. CT chest 11/14/2023 showed right upper lobe density extending from right hilum to right lung periphery with regular borders lesion measuring 4.[address] mentioned right upper lobe mass however the lesion is in superior segment of right lower lobe. Tells me that she never smoked. There is evidence of emphysema on the CT chest. She admitted having significant secondhand exposure. I have discussed with patient -the lesion in the lung is highly suspicious for malignancy and we need tissue diagnosis to confirm. For that I have given the option of going for robotic navigational guided biopsy of suspicious lesion as well as endobronchial ultrasound-guided surveillance of hilar/mediastinal lymph nodes. I have explained about the complications like pneumothorax given her significant background emphysema which may require chest tube placement. Bleeding is another possibility, majority of times the bleeding is controlled with instillation of cold saline or diluted epinephrine but extremely rarely to bleeding may not be well controlled, which may result in prolonged intubation and possibly bronchial ambreen placement to protect nonbleeding airway, convalescence in ICU, may even need IR embolization. There is also a very small chance of missing the lesion due to technical factors which may result in repeating the procedure. These are rare possibilities with current software combined with using live radial ultrasound,. Patient and her verbalized understanding for the indication of the procedure, nature of the procedure, alternatives, complications, benefits and wishes to proceed. Procedure: Pre-procedure Verification: Prior to the procedure, the patient's identity was verified by full name, date of and medical record number. The patient's identity was verified on all pertinent medical records. Also prior to the procedure, a History and Physical was performed, and patient medications, allergies and sensitivities were reviewed. The patient's tolerance of previous anesthesia was reviewed. The risks and benefits of the procedure and the sedation options and risks were discussed with the patient. All questions were answered and informed consent was obtained. Planning: Using the PlanSHAPE planning software, this patient?s preoperative CT was loaded onto the system and then target and pathway mapping was performed. This was all done prior to the start of the procedure and appropriate plan verified prior to induction. Anesthesia: General anesthesia was used. Please see anesthesiology documentation for full details. A modified LNVP/Allie Protocol was used for robotic bronchoscopy with rapid Intubation, recruitment maneuvers, Tidal Volume around 8-10mL/Kg [place] Body Weight, and PEEP 10-15 as feasible. Time-Out: Prior to the start of the procedure, the patient's identification, proposed procedure, accurate signed consent, correctly labeled images and records, and need for prophylactic antibiotics were verified by the physician, the nurse, the anesthesiologist and the environmental science professor in the procedure room. Procedural Details: After obtaining informed consent, The procedure was accomplished without difficulty. The patient tolerated the procedure well. Patient preparation: Patient was placed under general anesthesia. An 8.5 ETT was placed for bronchoscopy. The larynx and vocal cords were not visualized. The trachea was anatomically normal. There were significant thick mucus secretions in the trachea which were suctioned right away. The right sided airway was anatomically normal without endobronchial lesions. there were thick appearing secretions in most of the right away which were suctioned. The left side airways was anatomically normal without endobronchial lesions. Therapeutic aspiration of the airways, initial encounter, was performed at the right bronchial tree. The therapeutic bronchoscope was then removed. We communicated with the anesthesia team to ensure proper ventilator settings for optimal peripheral bronchoscopy. FIRST LOBE: The Ion Shape Sensing Robotic Assisted Bronchoscope was brought into the field and the process of registration was carried out. The guide catheter was used for peripheral navigational bronchoscopy using the planned pathway into the superior segment of right lower lobe mass and was able to be wedged peripherally at a distance of 4 mm away from the target. We locked the catheter position in, and removed the vision probe. We introduced the radial EBUS probe and obtained an concentric signal [id number] image location relative to the lesion in the same lobe. We confirmed our location with a fluoroscopic C-arm. We then removed the R-EBUS and introduced the biopsy tools starting with a 21 G ION bronchoscopic peripheral needle for Transbronchial Needle Aspirations (TBNA). The first pass was not sent for Rapid On Site Evaluation (DEBI) as we do not have onsite pathology. We continued more biopsies in a cloud format. Transbronchial biopsies of superior segment of right lower lobe mass using forceps. Transbronchial biopsy technique was selected because the sampling site was not visible endoscopically. The sampling device penetrated the full thickness of the bronchial wall to obtain the biopsy of lung tissue. 6 biopsy passes were performed, and the same number of biopsy samples were obtained. Endobronchial protective brushings were collected at the superior segment of right lower lobe lesion using a microbiology/cytology brush Finally, we used a 10cc syringe filled with normal saline connected to the proximal portion of the ION catheter and slowly injected 20 cc and aspirated the contents for a bronchial alveolar lavage of thesuperior segment of right lower lobe. The return was cloudy and blood tinged 13 cc . At this point and after confirming the absence of bleeding, we removed the channel. Minimal blood residue was cleared from the airway and the peripheral navigation portion of the procedure was concluded. Empiric cold saline was instilled through the catheter and tamponade held for 1-5 minutes. Next, we turned our attention to linear EBUS staging. An EBUS exam was performed: - Stations 7, 11 R were enlarged > 5mm and sampled in that order. - Stations [10L, 4L, 4R, 10 R, 11L] were also scanned but <5mm and thus did not meet criteria for sampling. - Level 11R station was identified with the EBUS scope at the RBI/R hilum and 3 passes were made using a 21G Olympus TBNA needle. - Level 7 station was identified with the EBUS scope at the medial LMSB/RMSB and 3 passes were made using a 21 G Olympus TBNA needle. - Rapid onsite path evaluation (DEBI) was not utilized for this case. - Following completion of all diagnostic and therapeutic procedures, hemostasis was verified. The scope was removed and procedure concluded. Samples: A. superior segment of right lower lobe mass 1. Total of 5 passes were made using needle aspiration ; we do not have onsite pathology and so all the material was placed in formalin for histopathology 2. Targeting the same area 5 passes were made using forceps ; we do not have onsite pathology and so all the material was placed in formalin for histopathology 3. Targeting the same area 5 passes were made using Cytobrush; we do not have onsite pathology and so all the material was placed in formalin for histopathology 4. Bronchoscope was wedged at the entrance of the superior segment right lower lobe, 20 mL of saline was instilled and returned 13 mL of bronchoalveolar lavage . The fluid was mixed with blood and specks of tissue. Samples for cell count, cytology, cultures B. EBUS guided Fine-needle aspiration biopsies were taken from station 11R, Station 7 5. Total of 3 passes were made using needle aspiration from station 11R; all the material was placed in formalin and sent for histopathology 6. Total of 3 passes were made using needle aspiration from station 7; all the material was placed in formalin and sent for histopathology Complications: None.The patient was extubated and brought to the PACU in stable condition. Postprocedure chest x-ray: There is no evidence of pneumothorax Disposition: Patient can be discharged home in stable condition. Pt, and family are aware that I am going to call them to update final biopsy results once available. Related Problem List Diagnoses (1) Mass of upper lobe of right lung: (2) Emphysema lung:
[2023-12-08 09:48] LABS: Cyto Order Verification Order Verified
[2023-12-08 09:52] LABS: Apprearance, Bronch Wash Bloody (CLEAR); Bronch Source Right and Left Lobes; Color, Bronc Wash Red
[2023-12-08 11:23] LABS: PATH Referral Yes; Total Cells Counted Bronch 200
== END 2023-12-08 10:18 | disposition home or self-care (01) ==
PROVIDERS: PCP Family Medicine; Visit Provider Internal Medicine Pulmonary Disease
PROC: 0BJ08ZZ Inspection of Tracheobronchial Tree, Via Natural or Artificial Opening Endoscopic (ICD-10-PCS; CPT 31622; principal; 2023-12-08 07:00)
PROC: BB4BZZZ Ultrasonography of Pleura (ICD-10-PCS; 2023-12-08 07:00)
DX: R91.8 Other nonspecific abnormal finding of lung field (principal); K21.9 Gastro-esophageal reflux disease without esophagitis; E78.5 Hyperlipidemia, unspecified; J43.2 Centrilobular emphysema
CPT/HCPCS: 31623; 31624; 31625; 31627; 31628; 31629; 31645; 31652; 71045; 76000; 80503; 87070; 87205; 88112; 88305; 89050; J1100; J2250; J2371; J2405; J2704; J2710; J3010; J3490; J7030

== ENCOUNTER 2023-12-25 06:54 | Outpatient (CLI) | payer OTHER, SELFPAY | END 2023-12-25 06:55 | disposition home or self-care (01) | LOC: RT 06:55 | PROVIDERS: PCP Family Medicine; Visit Provider Internal Medicine Pulmonary Disease | DX: R06.02 Shortness of breath (principal); R94.2 Abnormal results of pulmonary function studies | CPT/HCPCS: 94010; 94618; 94726; 94729 ==

== ENCOUNTER 2024-01-13 08:30 | Outpatient (CLI) | payer OTHER, SELFPAY ==
--- NOTE | 2024-01-13 09:00 | PETR_ITS ---
PROCEDURE INFORMATION: Exam: PET/CT Skull Base to Mid-thigh Exam date and time: 01/13/2024 9:50 AM Age: 63 years old Clinical indication: Abnormal findings; . Right upper lobe 5.9 cm lesion suspicious for cancer of the lung. Prior surgery; Surgery date: 6+ months; Surgery type: Benign right lung mass 1999; Additional info: Rul mass 5.9 cm LABS AND CLINICAL REPORTS: Glucose: 94 mg/dl Treatment strategy for malignancy (PET staging): Initial Staging (PI) TECHNIQUE: Imaging protocol: Following at least four-hour fasting and following the injection of radiopharmaceutical, low dose CT images were obtained. Then, PET images were obtained. Attenuation corrected images were constructed using the CT scan. Fused images of PET and CT were reviewed. The standardized uptake values (SUV) reported below are maximum values within a region of interest, expressed in gm/ml. Exam includes orbital meatal line to mid-thigh. Radiopharmaceutical: 12.14 mCi F-18 FDG (Fluorodeoxyglucose), IV. Time of imaging post radiopharmaceutical administration: 1 hour Injection site: Left antecubital vein COMPARISON: CT chest w con* [id number] 11/14/2023, chest x-ray 11/10/2023 and 11/06/2023 FINDINGS: Brain: Visualized brain has normal physiologic uptake. Pharynx: No abnormal uptake. Larynx: No abnormal uptake. Lungs, pleura and trachea: Large consolidation in the superior segment of the right lower lobe present on 11/14/2023 has nearly completely resolved compatible with pneumonia. Residual findings in the area include about 1.4 cm spiculated nodule on axial image 71 with low-grade uptake of 1.7 SUV, and linear opacity anteriorly adjacent to the interlobar fissure on axial image 73 with low-grade uptake of 2 SUV. Stable non FDG avid small reticular opacity in the right upper lobe suggestive of mild chronic fibrotic findings/scarring. Stable small calcified granuloma in the apex of the right upper lobe on axial image 61. no suspicious findings in the left lung. No pleural effusion. Heart: Normal physiologic uptake. There is no cardiomegaly. Coronary artery calcification is present. There is no pericardial effusion. Mediastinal space: No abnormal uptake. Stable sequela of exposure to granulomatous disease with calcifications in normal size right paratracheal, right subcarinal and right hilar lymph nodes. Liver: No abnormal uptake. Gallbladder and bile ducts: No abnormal uptake. Status post cholecystectomy. Pancreas: No abnormal uptake. Spleen: No abnormal uptake. The spleen is normal in size with small calcified granuloma. Adrenal glands: No abnormal uptake. No nodules. Kidneys and ureters: Normal physiologic uptake. No hydronephrosis. 2.6 cm simple cyst medially in the midpole of the right kidney. Stomach and bowel: There are 2 indeterminate focal areas of increased uptake in the small bowel with no corresponding CT abnormality. This includes 2.5 cm long segment measuring 14.8 SUV in the mid abdomen to the left of the midline ( axial image 162), and about 1 cm focus measuring 4.8 SUV in the midline in the lower abdomen ( axial image 189). Mildly increased linear uptake up to 5.1 SUV in multiple loops of small bowel in the right and left abdomen with no corresponding CT abnormality is compatible with benign finding. Diffusely mildly increased uptake of 5.3 SUV within the stomach is likely benign. Status post gastric bypass surgery. No abnormal dilatation of the bowel. Large amount of stool in the colon for clinical correlation with constipation. Vasculature: No abnormal uptake. No aortic aneurysm. Lymph nodes: No abnormal uptake. No lymphadenopathy in the head, neck, chest, abdomen, pelvis, and extremities. Bones/joints: No abnormal uptake in the visualized axial and appendicular skeleton. Status post L4-L5 fusion with anterior interbody internal fixation and fusion cage within the intervertebral disc space. Soft tissues: No abnormal uptake in the visualized head, neck, chest, abdomen, pelvis, and extremities. [facility] [id number] IMPRESSION: 1. No concern for lung malignancy. Right lower lobe consolidation present on 11/10/2023 has nearly completely resolved compatible with pneumonia. Mild residual opacities in the right lower lobe in place of prior consolidation demonstrate low-grade uptake not exceeding 2 SUV suggestive of benign finding. 2. Two nonlinear short segment areas of increased uptake within the small bowel in the mid and lower abdomen with no corresponding CT abnormality are indeterminate.
== END 2024-01-13 08:31 | disposition home or self-care (01) ==
LOC: RAD 08:30
PROVIDERS: PCP Family Medicine; Visit Provider Internal Medicine Pulmonary Disease
DX: R91.8 Other nonspecific abnormal finding of lung field (principal)
CPT/HCPCS: 78815; A9552

== ENCOUNTER 2024-04-27 10:23 | Outpatient (CLI) | payer OTHER, SELFPAY ==
--- NOTE | 2024-04-27 10:27 | XR_ITS ---
WS: [id number] Exam: XR chest 2V* [id number] Date/Time of Exam: 04/27/2024 10:43 AM Reason For Exam: PNEUMONIA Comparison 12/08/2023. There is infiltrate and atelectasis in the mid and lower RIGHT lung with RIGHT pleural effusion. No p neumothorax noted. LEFT lung is clear. Chronic and postsurgical changes seen in the RIGHT upper lobe. Normal cardiomediastinal silhouette. Bony structures are intact. Thoracolumbar scoliosis. XR/XR chest 2V* [id number] IMPRESSION: 1. Infiltrate and atelectasis in the middle and lower lobes of the RIGHT lung w ith RIGHT pleural effusion. 2. Chronic and postoperative changes in the RIGHT upper lobe.
== END 2024-04-27 10:24 | disposition home or self-care (01) ==
LOC: RAD 10:25
PROVIDERS: PCP Family Medicine; Visit Provider Family Medicine
DX: J18.9 Pneumonia, unspecified organism (principal); R91.8 Other nonspecific abnormal finding of lung field; J98.11 Atelectasis; J90 Pleural effusion, not elsewhere classified; Z98.890 Other specified postprocedural states
CPT/HCPCS: 71046

== ENCOUNTER 2024-05-04 14:42 | Inpatient (IN) | payer OTHER, SELFPAY ==
--- OUTSIDE RECORDS SUMMARY | 2024-05-04 14:45 | XMS_ITS | Patient Health Record ---
Author Name Unknown Organization [facility] Address [address] [place], [place] [id number] Care Team Providers Care Pilot Safety Inspector Name Role Phone Willy RAMOS, Hien Primary Care Provider Mushtaq Mcdonnell MD, Kaden Unavailable [phone] Addis RAMOS, Boaz Unavailable Unavailable Jace MUELLERP, Leyla Unavailable [phone] ALLERGIES Allergen (clinical drug ingredient) Drug/Non Drug [...] screen / MS if ind icated Reviewed date:04/22/2024 07:49:17 AM Interpretation:Consistent Performing Lab: Notes/Report: Consistent REASON FOR REFERRAL No Information MEDICATIONS Medication SIG (Take, Route, Frequency, Duration) Notes Start Date End Date Status meloxicam 15 mg 1 tab orally once a day Active melatonin 3 mg 1 tab orally once (at bedtime) Active Vitamin B-12 1000 mcg 1 tab(s) orally once a day for 30 day(s) Active nitroglycerin 0.4 mg 1 tab(s) sublingually every 5 minutes Active Narcan 4 mg/0.1 mL as directed intranasally once 02/01/2020 Active ALPRAZolam 1 mg 1 tab PO orally prn Active ferrous sulfate 325 mg 1 tab orally 3 times a day Active ondansetron 4 mg 1 tab orally Q8H prn nausea Active cyclobenzaprine 10 mg 1 tab orally Q8H prn spasm for 28 days Active acetaminophen-hydrocodo ne 325 mg-10 mg 1-2 tabs orally Q4-6H prn pain (max 8/day; hold within 4H of planned sleep) for 28 days Do not fill prior to 05/25/24. ICD-10: G89.29 04/22/2024 Active potassium chloride 10 mEq 1 tab(s) orally 2 times a day for 30 day(s) Active acetaminophen-hydrocodo ne 325 mg-10 mg 1-2 tabs orally Q4-6H prn pain (max 8/day; hold within 4H of planned sleep) for 28 days Do not fill prior to 04/27/24. ICD-10: G89.29 04/22/2024 Active Topamax 100 mg 1 tab orally Q12H prn nerve pain for 28 days Active furosemide 20 mg 1 tab(s) orally once a day for 30 day(s) 08/07/2023 Active oxyCODONE 5 mg 1/2 - 1 tab orally Q24H prn severe pain (hold within 4H of planned sleep) for 28 days Do not fill prior to 04/27/24. ICD-10: G89.29 04/22/2024 Active fluticasone nasal 50 mcg/inh 1 spray intranasally once a day Active predniSONE 20 mg 1 tab(s) orally once a day for 7 day(s) Active lovastatin 40 mg 1 tab orally once a day for 30 day(s) Active traZODone 50 mg as directed orally Active oxyCODONE 5 mg 1/2 - 1 tab orally Q24H prn severe pain (hold within 4H of planned sleep) for 28 days Do not fill prior to 05/25/24. ICD-10: G89.29 04/22/2024 Active Lidoderm 5% 1-3 patches applied topically 12H on / 12H off for 30 day(s) not covered by insurance 05/01/2021 Active Topiragen 100 mg 1 tab orally Q12H prn nerve pain for 30 day(s) Active SOCIAL HISTORY Tobacco Use: Social History [...] Problem Sacroiliitis (720.2) Active confirmed Solitary sacroiliitis (231343378) Problem Lumbosacral spondylosis without myelopathy (721.3) Active confirmed Lumbosacral spondylosis without myelopathy (78564072) Problem Lumbar (w/out myelopathy) intervertebral disc disorder (722.10) Active confirmed Displacement of lumbar intervertebral disc without myelopathy (69528980) Problem LONG-TERM USE MEDS NEC (V58.69) Active confirmed Long-term drug therapy (600644479) R/O substance abuse Problem Anxiety State, other, specified: procedure related (300.09) Active confirmed Anxiety state (908806898) Problem Postlaminectomy syndrome of lumbar region (722.83) Active confirmed Lumbar post-laminectomy syndrome (544066896) Problem Low back pain (724.2) Active confirmed Low back pain (608391159) Problem Sacroiliitis, not elsewhere classified (M46.1) Active confirmed Solitary sacroiliitis (264467480) Problem Low back pain (M54.5) Active confirmed Low back pain (632724762) Problem Other intervertebral disc displacement, lumbar region (M51.26) Active confirmed Displacement of lumbar intervertebral disc without myelopathy (91220980) Problem Spondylosis without myelopathy or radiculopathy, lumbar region (M47.816) Active confirmed Lumbosacral spondylosis without myelopathy (35101914) Problem custodial (current) use of opiate analgesic (Z79.891) Active confirmed High risk drug monitoring status (267170975) Problem Enthesopathy, unspecified (M77.9) Active confirmed Enthesopathy (65982408) Problem Other specified anxiety disorders (F41.8) Active confirmed Anxiety disorde r (401295943) Problem Other sleep disorders (G47.8) Active confirmed Sleep diso rder (11190682) Problem Other chronic pain (G89.29) Active confirmed Chronic pain (71505058) Problem Hallux valgus (acquired), unspecified foot (M20.10) Active confirmed Acquired hallux valgus (32939456) Problem Intervertebral disc disorders with radiculopathy, lumbar region (M51.16) Active confirmed Radiculopathy due to lumbar intervertebral disc disorder (403770484768231 ) Problem Pain in thoracic spine (M54.6) Active confirmed Pain in thorac ic spine (341969632) Problem Fibromyalgia (M79.7) Active confirmed Fibromyalgia (420915362) Problem Postlaminectomy syndrome, not elsewhere classified (M96.1) Active confirmed Post-laminectom y syndrome (30315033) Problem Spinal stenosis, lumbar region without neurogenic claudication (M48.061) Active confirmed Spinal stenosis of lumbar region (58731758) Problem Myalgia, other site (M79.18) Active confirmed Muscle pain (81315210) Problem Headache, unspecified (R51.9) Active confirmed Headache (39484917) Problem Vertebrogenic low back pain (M54.51) Active confirmed Vertebrogenic pain syndrome (696740691) VITAL SIGNS Temperature 97.5 degrees Fahrenheit 04/22/2024 Blood pressure diastolic 64 mm Hg 04/22/2024 Oximetry 98 % 04/22/2024 Height 65 in 04/22/2024 Blood pressure systolic 106 mm Hg 04/22/2024 Weight 154.4 lbs 04/22/2024 BMI 25.69 kg/m2 04/22/2024 Encounters Encounter Location Date Provider Diagnosis [facility], [address] [id number] 05/08/2023 Leyla Mccormick Vertebrogenic low ba ck pain M54.51 ; Other chronic pain G89.29 and Myalgia, other site M79.18 [facility], [address] [id number] 08/07/2023 Leyla Mccormick Vertebrogenic low ba ck pain M54.51 ; Other chronic pain G89.29 ; Postlaminectomy syndrome, not elsewhere classified M96.1 and Myalgia, other site M79.18 [facility], [address] [id number] 11/06/2023 Leyla Mccormick Vertebrogenic low ba ck pain M54.51 ; Other chronic pain G89.29 ; Postlaminectomy syndrome, not elsewhere classified M96.1 ; Myalgia, other site M79.18 and custodial (current) use of opiate analgesic Z79.891 [facility], [facility] [address] [place], [place] [id number] 12/02/2023 Kaden Mcdonnell [facility], [facility] [address] [place], [place] [id number] 12/04/2023 Kaden Mcdonnell [facility], [facility] [address] [place], [place] [id number] 01/01/2024 Kaden Mcdonnell Vertebrogenic low ba ck pain M54.51 ; Other chronic pain G89.29 ; Postlaminectomy syndrome, not elsewhere classified M96.1 ; Myalgia, other site M79.18 and Other sleep disorders G47.8 [facility], [facility] [address] [place], [place] [id number] 02/19/2024 Leyla Mccormick Vertebrogenic low ba ck pain M54.51 ; Other chronic pain G89.29 ; Postlaminectomy syndrome, not elsewhere classified M96.1 ; Myalgia, other site M79.18 and Other sleep disorders G47.8 [facility], [facility] [address] [place], [place] [id number] 04/22/2024 Leyla Mccormick Vertebrogenic low ba ck pain M54.51 ; Other chronic pain G89.29 ; Postlaminectomy syndrome, not elsewhere classified M96.1 ; Myalgia, other site M79.18 ; Other sleep disorders G47.8 and [employer] (current) use of opiate analgesic Z79.891 ASSESSMENTS Encounter Date Diagnosis Assessment Notes Treatment Notes Treatment Clinical Notes 05/08/2023 Vertebrogenic low back pain (ICD-10 - [...] (ICD-10 - M54.51) Chronic lumbar axial pain. 01/01/2024 Vertebrogenic low back pain (ICD-10 - M54.51) Chronic lumbar axial pain. 02/19/2024 Vertebrogenic low back pain (ICD-10 - M54.51) Chronic lumbar axial pain. 04/22/2024 Vertebrogenic low back pain (ICD-10 - M54.51) Chronic lumbar axial pain. 02/19/2024 Other chronic pain (ICD-10 - G89.29) Patient reports that taking her pain medication allows her to complete multiple medical tests, work, and care for her . Plan to continue oral opioid medication management. 02/19/2024 Postlaminectomy syndrome, not elsewhere classified (ICD-10 - M96.1) Patient reports benefit with use of topiramate for her lower extremity nerve pain. Plan to continue. 04/22/2024 Other chronic pain (ICD-10 - G89.29) Patient reports that taking her pain medication allows her to care for her . Plan to continue oral opioid medication management. 04/22/2024 Postlaminectomy syndrome, not elsewhere classified (ICD-10 - M96.1) Patient reports benefit with use of topiramate for her lower extremity nerve pain. Plan to continue. 01/01/2024 Other chronic pain (ICD-10 - G89.29) Patient reports that taking her pain medication allows her to continue working. Plan to continue oral opioid medication management. 01/01/2024 Postlaminectomy syndrome, not elsewhere classified (ICD-10 - M96.1) Patient reports benefit with use of topiramate for her lower extremity nerve pain. Plan to continue. 11/06/2023 Other chronic pain (ICD-10 - G89.29) [...] lower extremity nerve pain. Plan to continue 08/07/2023 Myalgia, other site (ICD-10 - M79.18) Patient reports benefit with use of Flexeril for spasm control. Plan to continue 11/06/2023 Myalgia, other site (ICD-10 - M79.18) Patient reports benefit with use of Flexeril for spasm control. Plan to continue. 01/01/2024 Myalgia, other site (ICD-10 - M79.18) Patient reports benefit with use of Flexeril for spasm control. Plan to continue. 04/22/2024 Myalgia, other site (ICD-10 - M79.18) Patient reports benefit with use of Flexeril for spasm control. Plan to continue. 02/19/2024 Myalgia, other site (ICD-10 - M79.18) Patient reports benefit with use of Flexeril for spasm control. Plan to continue. 04/22/2024 Other sleep disorder s (ICD-10 - G47.8) Patient has history of a sleep disorder with some hypersomnia. Patient has declined a prior offer for a sleep study. Plan to continue to restrict opioid use in relation to sleep for safety concerns. 02/19/2024 Other sleep disorder s (ICD-10 - G47.8) Patient has history of a sleep disorder with some hypersomnia. Patient has declined a prior offer for a sleep study. Plan to continue to restrict opioid use in relation to sleep for safety concerns. 01/01/2024 Other sleep disorder s (ICD-10 - G47.8) Patient has history of a sleep disorder with some hypersomnia. Patient has declined a prior offer for a sleep study. Plan to continue to restrict opioid use in relation to sleep for safety concerns. 11/06/2023 [employer] (current) use of opiate analgesic (ICD-10 - Z79.891) 2022 opioid (OUD) risk tool score = 3. This places the patient in the high risk category, warranting more frequent screening. Plan 2 month visits pending continued compliance with her Treatment Agreement. Plan urine toxicology screen today to monitor for presence of any unprescribed or illicit controlled substance(s), as well as prescribed hydrocodone. 04/22/2024 custodial (current) use of opiate analgesic (ICD-10 - Z79.891) 2022 opioid (OUD) risk tool score = 3. This places the patient in the high risk category, warranting more frequent screening. Plan 2 month visit pending continued compliance with patient's Treatment Agreement. Plan urine toxicology screen today to monitor for presence of any unprescribed or illicit controlled substance(s), as well as prescribed oxycodone and hydrocodone. 05/08/2023 Other 08/07/2023 Other 11/06/2023 Other 01/01/2024 Other Patient reports she is scheduled for a PET scan on 01/13/24 looking at the mass on her right lobe of lung. Per Afia at [facility], they have no Coy 10 mg/325 mg tablets in stock but can fill #224 7.5 mg/325 mg. New eRx prepared. Patient aware. 02/19/2024 Other Patient reports she completed a PET scan on 01/13/24; 2 spots noted on colon and colonoscopy is scheduled for 03/24/24. 04/22/2024 Other Patient encourbrett martinez to contact her PCP or [employer] today for evaluation (lung congestion). PLAN OF TREATMENT Next Appt Details Provider Name:Kaden Gagnon son, 06/17/2024 07:00:00 AM, [address], [place], [id number], Insurance Providers Payer Name Payer Address Payer Phone Subscriber Number Group Number Insured Name Patient Relationship to Insured Coverage Start Date Coverage End Date [employer] [address] [address] [place] [id number] Marielle Stark Self - patient is the insured MEDICAL (GENERAL) HISTORY Medical History History ICD Code Chronic pain Low back pain Lumbar disc disese, spondylo sis, spinal stenosis, and post-laminectomy syndrome Mid back pain Fibromyalgia Knee pain Shoulder pain Elbow pain Hypothyroidism GI bleeds Pneumonia Lung mass, right, surgical biopsy Sleep disorder, some hypersomnia Surgical History Surgery Date(Month/Year) Lumbar spine x 3, at L4-5, 4028-5166 Gastric bypass Cholecystectomy Tonsillectomy and adenoidectomy Benign tumor removal, right lung Tendon re-attachment, right hand SCS system (with IPG) placement, 8 Carpal tunnel release, right Right shoulder repair, 05/25/09 Knee, bilateral, 07/10/11 Left knee, 05/2013 Bowel blockage, 11/01/13 Bunionectomy along with corn removal, ri ght foot, 05/2016 IPG exchange, 10/2016 Removal of stitches from right foot, 2015 Colonoscopy, performed at [facility] by Dr. Faraz Aguilera, 04/02/18 Left elbow surgery, performed at [facility], 05/02/21 Explantation of SCS system, performed at [facility] by Dr. Patino, 10/10/21 L4-5 ALIF, performed at [facility] by Dr. Ev mir, 11/06/22 Lung biopsy, performed at [facility], 12/08/23 Colonoscopy, performed at the [facility] enter in [place], [place], 01/28/24 Colonoscopy, performed at the [facility] enter in [place], [place], 03/25/24 Hospitalization History Reason Date(Month/Year) GI bleed, 2003
--- NOTE | 2024-05-04 15:20 | XRR_ITS ---
PROCEDURE INFORMATION: Exam: XR Chest Exam date and time: 05/04/2024 3:31 PM Age: 63 years old Clinical indication: Cough and fever; Prior surgery; Surgery date: 6+ months; Surgery type: RT lung; Additional info: Fever, cough, pneumonia TECHNIQUE: Imaging protocol: Radiologic exam of the chest. Views: 1 view. COMPARISON: CR XR chest 2V* [id number] 04/27/2024 10:45 AM FINDINGS: Lungs: Right basilar pleuroparenchymal opacity is again seen and is not appreciably changed. Linear opacities projecting over the right upper lung field have the appearance of atelectasis or fibrosis. Left lung is clear. Pleural spaces: No pneumothorax. Heart/Mediastinum: Unremarkable. No cardiomegaly. Bones/joints: No acute findings. XR/XR chest 1V portable [id number] IMPRESSION: No significant change.
--- NOTE | 2024-05-04 15:23 | P.HP_ITS ---
Providers/Chief Complaint Admitting Physician: Jolly Aguilera MD Primary Care Provider: Hien Aguilera MD Chief Complaint: Pnuemonia History of Present Illness Marielle Stark is a 63 year old female presenting from her physicians clinic with concern of pneumonia failing outpatient treatment. She has been symptomatic with cough and shortness of breath with exertion for several weeks until presentation to her physician's office 1 week ago. At that time she was diagnosed with pneumonia and there was concern of possible small effusion on x- ray. Pneumonia was on the right side and is in our system. She initiated Levaquin at that time but has had persistent fevers, as high as 101 to 103 ?F intermittently. She continues to cough, which is productive of grayish sputum. She has right-sided pain with coughing and inspiration. She has not had any vomiting, or diarrhea. She does have continued issues with reflux and has had for quite some time but denies any swallowing difficulties. She reports no hemoptysis. She had previously been evaluated for a lung mass thought to be pneumonia after PET scan and biopsy did not show concerns. This was on the right side as well. She has also had a removal of a benign tumor on that side by thoracotomy. No ill contacts. No diarrhea. Review of Systems General: Reports: 10 or more systems reviewed and unremarkable except in HPI and below Card: Reports: chest pain (With coughing) Resp: Reports: dyspnea and productive cough; Denies: hemoptysis GI: Denies: abdominal pain, nausea, vomiting, dysphagia, hematochezia or melena Medications/Allergies Home Medications Medication Instructions Recorded Confirmed Last Taken Type levothyroxine 125 mcg tablet 125 mcg PO DAILY 09/11/20 01/15/24 12/08/23 History (Synthroid) lovastatin 40 mg tablet 40 mg PO DAILY 09/11/20 01/15/24 12/07/23 History topiramate 100 mg tablet (Topamax) 100 mg PO BID 09/11/20 01/15/24 12/07/23 History conj estrogen-medroxyprogesterone 1 tab PO DAILY 02/02/23 01/15/24 12/07/23 History 0.3 mg-1.5 mg tablet (Prempro) meloxicam 15 mg tablet 15 mg PO DAILY 02/02/23 01/15/24 12/07/23 History alprazolam 0.5 mg tablet 0.5 mg PO Q6H PRN Anxiety 08/01/23 01/15/24 12/07/23 History cyclobenzaprine 10 mg tablet 10 mg PO DAILY 08/01/23 01/15/24 12/07/23 History furosemide 20 mg tablet 20 mg PO DAILY PRN Edema 08/01/23 01/15/24 2 Weeks Ago History ~08/06/23 hydrocodone 10 mg-acetaminophen 1 tab PO Q8H PRN Pain 08/01/23 01/15/24 12/08/23 History 325 mg tablet nitroglycerin 0.4 mg sublingual 0.4 mg sublingual PRN PRN Chest 08/01/23 01/15/24 Unknown History tablet Pain ondansetron 4 mg disintegrating 4 mg PO Q8H PRN Nausea 08/01/23 01/15/24 12/04/23 History tablet oxycodone 5 mg tablet 5 mg PO Q6H PRN Pain 08/01/23 01/15/24 08/18/23 History potassium chloride 10 mEq 10 meq PO PRN 08/01/23 01/15/24 2 Weeks Ago History tablet,extended release ~08/06/23 trazodone 50 mg tablet 50 mg PO DAILY 08/01/23 01/15/24 12/07/23 History pantoprazole 40 mg tablet,delayed 40 mg PO DAILY 11/27/23 01/15/24 12/07/23 History release (Protonix) Allergies Allergy/AdvReac Type Severity Reaction Status Date / Time benzoin Allergy blisters Verified 01/15/24 15:15 codeine Allergy headache Verified 01/15/24 15:15 morphine Allergy headache Verified 01/15/24 15:15 PFSH Acute PFSH: Medical History (Updated 05/04/24 @ 15:29 by Beto Aguilera MD) Fibromyalgia Osteoarthritis GERD (gastroesophageal reflux disease) High cholesterol Hypothyroid Chronic back pain Surgical History (Updated 05/04/24 @ 15:27 by Beto Aguilera MD) History of cholecystectomy Hx of spinal surgery H/O elbow surgery H/O hand surgery H/O shoulder surgery Family History (Updated 05/04/24 @ 15:27 by Beto Aguilera MD) Other Cancer Social History (Updated 05/04/24 @ 15:27 by Beto Aguilera MD) Smoking and tobacco/nicotine status: never used tobacco/nicotine Alcohol intake: never Vitals/I&O/Wt Weight last 48 hrs Weight 67.132 kg Physical Exam Narrative: General exam is a white female, who coughs frequently and reports pain in the right side of her chest. HEENT: Atraumatic and normocephalic. Oropharynx clear. Neck is supple no lymphadenopathy thyromegaly Cardiovascular regular rate and rhythm Lungs relatively clear bilaterally. I do not notice diminished breath sounds on the right. No wheezes. Few coarse breath sounds in the right lower lung. Abdomen is soft, positive bowel sounds. No obvious organomegaly exam was deferred Extremities trace edema. No cyanosis or clubbing Skin no rash Neuro no focal deficits Data Other Labs: I have ordered a CBC, CMP, blood culture, sputum culture, respiratory panel, Legionella antigen, MRSA PCR, TSH, portable chest x-ray. Depending on x-ray results, and creatinine it is likely CT of the chest may follow. I have reviewed her previous x-ray which demonstrated a right lower lobe pneumonia with probable effusion. A&P Assessment and plan (1) Pneumonia: Patient diagnosed with pneumonia approximately 1 week ago, for which she was placed on Levaquin. She has had persistent symptoms since that time, including fever. She is not significantly improved. Her x-ray, done on April 27 suggested a possible effusion. She has some issues with chronic reflux making aspiration a possibility. She has had previous workup with a PET scan and biopsy for concerns of lung mass on that side which were negative. 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 At this point she has pneumonia, failing outpatient treatment. As there is a possibility of aspiration I will initially treat her with vancomycin and Zosyn. I will await her chest x-ray and creatinine but likely with her past history and concern of pleural effusion this will lead to a CT chest hopefully with contrast. Multiple laboratories still pending. As she has been seeing pulmonary rather recently, will involve them in her care secondary to recurrent pneumonia within a relatively short timeframe. Her medication list will be reconciled, and she was started on many of her home medications. Plan Multiple other medical problems as outlined in the past medical history Full code currently SCDs for DVT prophylaxis. Pharmacologic anticoagulation is contraindicated currently as she may have a pleural effusion requiring thoracentesis. Will evaluate lab prior to making any further decisions. Attestations Medical Necessity Statement*: Secondary to pneumonia failing outpatient treatment, with significant fever elevation at home of 101 to 103 ?F she will need greater than 2 midnights for evaluation and treatment of her current condition even though she is not hypoxic currently. This will allow adequate treatment with broad-spectrum antibiotics, and review of multiple studies that will be needed. Diagnoses Pneumonia J18.9 Time Spent (min) 51
[2024-05-04 16:00] VITALS: BP 111/69; PULSE 66; RESP 17; TEMP 36.6; O2SAT 98
[2024-05-04] MEDS: piperacillin-tazobactam 3.375 GM in sodium chloride 0.9% (plus) 50 ML IV (16:31)
[2024-05-04] MEDS: sodium chloride 0.9% 1,000 ML 50 ML IV (16:31)
[2024-05-04 16:43] LABS: Basophils % 0.3 %; Eosinophils # 0.2 10^3/uL (0.0-0.8); Eosinophils % 1.8 %; Lymphocytes # 1.3 10^3/uL (0.8-4.8); Lymphocytes % 9.9 %; Mean Corpuscular HGB Conc 31.1 g/dL (30-55); Mean Corpuscular Hemoglobin 30.4 pg (27-33); Mean Corpuscular Volume 97.5 fl (85-98); Mean Platelet Volume 8.2 fL (7.4-10.4); Monocytes # 0.7 10^3/uL (0.2-0.9); Monocytes % 5.6 %; Neutrophils # 10.48 10^3/uL (1.8-7.7); Neutrophils % 80.7 %; Nucleated Red Blood Cells % 0 %; Platelet Count 359 10^3/cmm (157-399); Red Blood Count 3.59 10^6/uL (3.85-5.65); Red Cell Distribution Width 13.2 % (12.1-15.1); White Blood Count 12.99 10^3/uL (3.29-11.43)
[2024-05-04 17:33] LABS: Alanine Aminotransferase 8 U/L (0-33); Albumin Level 2.6 g/dL (3.5-5.2); Alkaline Phosphatase 104 U/L (35-105); Anion Gap 14.3 (5-19); Aspartate Amino Transferase 11 U/L (0-32); Blood Urea Nitrogen 15 mg/dL (8-23); Calcium 8.2 mg/dL (8.5-10.5); Carbon Dioxide 22 mmol/L (22-29); Chloride 103 mmol/L (98-107); Creatinine Clr Calc Pharmacy 68.4724; Globulin 4.3 g/dL (1.3-4.6); Glomerular Filtration Rate 72.2 mL/min (90-130); Glucose 86 mg/dL (65-115); Osmolality Calculated 280 mOsm/kg (285-295); Potassium 4.3 mmol/L (3.5-5.1); Sodium 135 mmol/L (136-145); Thyroid Stimulating Hormone 8.92 uIU/mL (0.27-4.20); Total Bilirubin 0.2 mg/dL (0.15-1.2); Total Protein 6.9 g/dL (6.6-8.7)
[2024-05-04 17:42] LABS: Adenovirus Not Detected (NOT DETECT); Chlamydia Pneumoniae Not Detected (NOT DETECT); Coronavirus 229E,HKU1,NL63,OC4 Not Detected (NOT DETECT); Human Metapneumovirus Not Detected (NOT DETECT); Human Rhinovirus/Enterovirus Not Detected (NOT DETECT); Influenza A Not Detected (NOT DETECT); Influenza A H1 Not Detected (NOT DETECT); Influenza A H1-2009 Not Detected (NOT DETECT); Influenza A H3 Not Detected (NOT DETECT); Influenza B Not Detected (NOT DETECT); Mycoplasma Pneumoniae Not Detected (NOT DETECT); Parainfluenza Virus Type 1 Not Detected (NOT DETECT); Parainfluenza Virus Type 2 Not Detected (NOT DETECT); Parainfluenza Virus Type 3 Not Detected (NOT DETECT); Parainfluenza Virus Type 4 Not Detected (NOT DETECT); Respiratory Syncytial Virus A Not Detected (NOT DETECT); Respiratory Syncytial Virus B Not Detected (NOT DETECT); SARS-COV-2 Not Detected (NOT DETECT)
--- NOTE | 2024-05-04 17:55 | CTR_ITS ---
PROCEDURE INFORMATION: Exam: CTA Chest With Contrast Exam date and time: 05/04/2024 8:53 PM Age: 63 years old Clinical indication: Angina; Additional info: Chest pain, popssible effusion TECHNIQUE: Imaging protocol: Computed tomographic angiography of the chest with contrast. Exam focused on the arteries. 3D rendering (Not supervised by radiologist): MIP and/or 3D reconstructed images were created by the technologist. Radiation optimization: All CT scans at this facility use at least one of these dose optimization techniques: automated exposure control; mA and/or kV adjustment per patient size (includes targeted exams where dose is matched to clinical indication); or iterative reconstruction. Contrast material: OMNI 350; Contrast volume: 70 ml; Contrast route: INTRAVENOUS (IV); COMPARISON: CT chest w con* [id number] 11/14/2023 2:39 PM RADIATION DOSE METRICS: Total DLP (mGy-cm): 255.9 FINDINGS: Limitations: Limited contrast density within the pulmonary arterial vasculature at the time of imaging. Pulmonary arteries: Bolus timing is insufficient for definitive exclusion of small peripheral pulmonary emboli. No large central emboli. Aorta: Unremarkable. No aortic aneurysm. No aortic dissection. Lungs: There is a large lobulated masslike consolidation or opacity in the right anterior basal segment measuring 6.5 x 5.8 cm, new since prior CT scan. This masslike density extends to the diaphragmatic pleural surface. The previously seen masslike opacity in the right upper lobe is no longer visualized. There are surgical staple lines in this region with linear densities likely representing postoperative or postsurgical change. There is a smaller spiculated density measuring 8 mm in the right upper lobe. Faint irregular ground-glass density also seen at the right base. Pleural spaces: See Lungs finding. Heart: Unremarkable. No cardiomegaly. No pericardial effusion. Lymph nodes: Unremarkable. No enlarged lymph nodes. Bones/joints: Unremarkable. No acute fracture. Soft tissues: Unremarkable. CT/CT angio chest PE protcl [id number] IMPRESSION: 1. No large central pulmonary emboli.Bolus timing is insufficient for definitive exclusion of small peripheral pulmonary emboli. 2. New large lobulated masslike opacity in the right pulmonary base, concerning for malignancy. Additional right-sided densities as above.
--- NOTE | 2024-05-04 18:07 | PM.CONSULT ---
Providers/Reason For Consult Consulting Physician/Specialty*: Aditya Kovacs MD FCCP/pulmonary critical care Reason for Consult*: Nonresolving right lower lobe pneumonia Requesting Physician: Beto Aguilera MD Attending Physician: Beto Aguilera MD Primary Care Provider: Hien Aguilera MD History of Present Illness History of Present Illness Marielle Stark is a 63 year old female presented to the emergency room from her PCP clinic after failing outpatient treatment for her pneumonia. Patient reported being symptomatic with cough, shortness of breath with exertion for several weeks. 1 week ago she was seen by her PCP, chest x-ray showed small effusion-received levofloxacin. She continued to have persistent fevers as high as 101 - 103 ?F. Continues to have productive cough with xavier sputum, right-sided pain with coughing and inspiration. Patient has issues with reflux but denied any swallowing difficulties. Pulmonary consult requested for nonresolving pneumonia. I have known Ms. Stark as outpatient when she came to pulmonary clinic in October 2023; for nonresolving pneumonia at that time CT chest 11/14/2023 showed right upper lobe density extending from right hilum to right lung periphery with regular borders lesion measuring 4.[address] mentioned right upper lobe mass however the lesion is in superior segment of right lower lobe. She underwent [employer] navigational robotic bronchoscopic biopsy of right lower lobe mass on 12/08/2023-pathology reported benign bronchial epithelium with acute inflammation and blood and negative for malignancy. On the same day she underwent endobronchial ultrasound biopsy of station 11 R and 7-pathology reported negative for malignancy. Cultures were negative. However due to productive cough as well as right-sided chest pain on inspiration, I started her on levofloxacin 750 mg daily for 10 days which she completed and did a PET CT scan 01/13/2024: 4 weeks-which reported superior segment right lower lobe consolidation on 01/11/2023 had nearly completely resolved compatible with pneumonia. Mild residual opacities in right lower lobe in place of prior consolidation demonstrated low grade uptake not extending to 2 SUV suggestive of benign finding. 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 Gas transfer is normal. Findings consistent with mild obstructive ventilatory disease like asthma --Today admission labs significant for leukocytosis with neutrophil shift, elevated TSH, Legionella antigen and respiratory viral panel are negative. -Blood cultures and MRSA PCR pending -Chest x-ray showed right basilar pleural-parenchymal opacity I have seen patient at bedside Tells me that after her PET/CT January 2024-she was asymptomatic until 3 weeks ago. She is lying in bed-reported her breathing was worse in the last 3 weeks but today she tells it somewhat better Admitted having productive cough and low-grade fevers Review of Systems General: Reports: 10 or more systems reviewed and unremarkable except in HPI and below Medications/Allergies Home Medications Medication Instructions Recorded Confirmed Last Taken Type lovastatin 40 mg tablet 40 mg PO DAILY 09/11/20 05/04/24 05/03/24 18:00 History topiramate 100 mg tablet (Topamax) 100 mg PO BID 09/11/20 05/04/24 05/04/24 08:00 History conj estrogen-medroxyprogesterone 1 tab PO DAILY 02/02/23 05/04/24 05/04/24 08:00 History 0.3 mg-1.5 mg tablet (Prempro) meloxicam 15 mg tablet 15 mg PO DAILY 02/02/23 05/04/24 12/07/23 History alprazolam 0.5 mg tablet 0.5 mg PO Q6H PRN Anxiety 08/01/23 05/04/24 12/07/23 History cyclobenzaprine 10 mg tablet 10 mg PO DAILY PRN Pain (Scale 08/01/23 05/04/24 12/07/23 History Score 1-3) furosemide 20 mg tablet 20 mg PO DAILY PRN Edema 08/01/23 05/04/24 2 Weeks Ago History ~08/06/23 hydrocodone 10 mg-acetaminophen 1 tab PO Q8H PRN Pain 08/01/23 05/04/24 12/08/23 History 325 mg tablet nitroglycerin 0.4 mg sublingual 0.4 mg sublingual PRN PRN Chest 08/01/23 05/04/24 Unknown History tablet Pain ondansetron 4 mg disintegrating 4 mg PO Q8H PRN Nausea 08/01/23 05/04/24 12/04/23 History tablet oxycodone 5 mg tablet 5 mg PO Q6H PRN Pain 08/01/23 05/04/24 08/18/23 History potassium chloride 10 mEq 10 meq PO PRN 08/01/23 05/04/24 2 Weeks Ago History tablet,extended release ~08/06/23 trazodone 50 mg tablet 100 mg PO DAILY 08/01/23 05/04/24 05/03/24 20:00 History pantoprazole 40 mg tablet,delayed 40 mg PO DAILY 11/27/23 05/04/24 05/04/24 08:00 History release (Protonix) levothyroxine 137 mcg tablet 137 mcg PO DAILY 05/04/24 05/04/24 05/04/24 08:00 History Allergies Allergy/AdvReac Type Severity Reaction Status Date / Time benzoin Allergy blisters Verified 01/15/24 15:15 codeine Allergy headache Verified 01/15/24 15:15 morphine Allergy headache Verified 01/15/24 15:15 Current Medications Generic Name Dose Route Start Last Admin Trade Name Freq PRN Reason Stop Dose Admin Sodium Chloride 1,000 mls @ 50 mls/hr 05/04/24 15:00 05/04/24 16:31 Sodium Chloride 0.9% IV 50 mls/hr .Q20H TONI Administration Piperacillin Sod/Tazobactam 50 mls @ 12.5 mls/hr 05/04/24 15:30 05/04/24 16:31 Sod 3.375 gm/ Sodium Chloride IV 12.5 mls/hr Q8H TONI Administration Protocol As Directed PFSH Acute PFSH: Medical History Fibromyalgia Osteoarthritis GERD (gastroesophageal reflux disease) High cholesterol Hypothyroid Chronic back pain Surgical History History of cholecystectomy Hx of spinal surgery H/O elbow surgery H/O hand surgery H/O shoulder surgery Family History Other Cancer Social History Smoking and tobacco/nicotine status: never used tobacco/nicotine Alcohol intake: never Vitals/I&O/Wt Last Vital Signs Temp 97.9 F 05/04/24 16:00 Pulse 66 05/04/24 16:00 Resp 17 05/04/24 16:00 BP 111/69 05/04/24 16:00 Pulse Ox 98 05/04/24 16:00 O2 Del Method Room Air 05/04/24 16:00 05/04/24 05/04/24 05/04/24 06:59 14:59 22:59 Output Total 100 / 100 Balance -100 / -100 Weight last 48 hrs Weight 148 lb Physical Exam Narrative: General: alert, NAD HEENT: conj clear, EOMI, PERRL, mmm, Neck: supple, no meningismus Heme: no cervical LAP Respiratory: Inspection: No visible deformity of the chest wall Palpation: Trachea is mildly deviated to the right, bilateral symmetric expansion Percussion: Bilateral tympanic percussion note both anterior and posteriorly Auscultation: Mild crepitation on right lower lung zone otherwise clear Cardiovascular: rrr, nl s1s2, no mrg Abdomen: soft, nt, nd, no r/g, bs+ Extremities: pulses +, no edema, no c/c : no CVA tenderness Skin: intact, no rash MSK: no back or neck pain Neurologic: grossly intact Data 05/04/24 16:04 05/04/24 16:04 Other Labs: Radiology Impressions Chest X-Ray 05/04/24 15:20 IMPRESSION: No significant change. Chest CTA 05/04/24 17:55 IMPRESSION: 1. No large central pulmonary emboli.Bolus timing is insufficient for definitive exclusion of small peripheral pulmonary emboli. 2. New large lobulated masslike opacity in the right pulmonary base, concerning for malignancy. Additional right-sided densities as above. Laboratory Results WBC 12.99 10^3/uL (3.29-11.43) H 05/04/24 16:04 RBC 3.59 10^6/uL (3.85-5.65) L 05/04/24 16:04 Hgb 10.90 g/dL (11.27-16.99) L 05/04/24 16:04 Hct 35.0 % (36-47) L 05/04/24 16:04 MCV 97.5 fl (85-98) 05/04/24 16:04 MCH 30.4 pg (27-33) 05/04/24 16:04 MCHC 31.1 g/dL (30-55) 05/04/24 16:04 RDW 13.2 % (12.1-15.1) 05/04/24 16:04 Plt Count 359 10^3/cmm (157-399) 05/04/24 16:04 MPV 8.2 fL (7.4-10.4) 05/04/24 16:04 Neut % (Auto) 80.7 % 05/04/24 16:04 Lymph % (Auto) 9.9 % 05/04/24 16:04 [place] % (Auto) 5.6 % 05/04/24 16:04 Eos % (Auto) 1.8 % 05/04/24 16:04 Baso % (Auto) 0.3 % 05/04/24 16:04 Neut # (Auto) 10.48 10^3/uL (1.8-7.7) H 05/04/24 16:04 Lymph # (Auto) 1.3 10^3/uL (0.8-4.8) 05/04/24 16:04 [place] # (Auto) 0.7 10^3/uL (0.2-0.9) 05/04/24 16:04 Eos # (Auto) 0.2 10^3/uL (0.0-0.8) 05/04/24 16:04 Baso # (Auto) 0.0 10^3/uL (0.0-0.1) 05/04/24 16:04 Nucleated RBC % (auto) 0 % 05/04/24 16:04 Nucleated RBCs # 0.0 /100WBC 05/04/24 16:04 Sodium 135 mmol/L (136-145) L 05/04/24 16:04 Potassium 4.3 mmol/L (3.5-5.1) 05/04/24 16:04 Chloride 103 mmol/L (98-107) 05/04/24 16:04 Carbon Dioxide 22 mmol/L (22-29) 05/04/24 16:04 Anion Gap 14.3 (5-19) 05/04/24 16:04 BUN 15 mg/dL (8-23) 05/04/24 16:04 Creatinine 0.8 mg/dL (0.5-0.9) 05/04/24 16:04 GFR Calculation 72.2 mL/min (90-130) L 05/04/24 16:04 Glucose 86 mg/dL (65-115) 05/04/24 16:04 Calculated Osmolality 280 mOsm/kg (285-295) L 05/04/24 16:04 Calcium 8.2 mg/dL (8.5-10.5) L 05/04/24 16:04 Total Bilirubin 0.2 mg/dL (0.15-1.2) 05/04/24 16:04 AST 11 U/L (0-32) 05/04/24 16:04 ALT 8 U/L (0-33) 05/04/24 16:04 Alkaline Phosphatase 104 U/L (35-105) 05/04/24 16:04 Total Protein 6.9 g/dL (6.6-8.7) 05/04/24 16:04 Albumin 2.6 g/dL (3.5-5.2) L 05/04/24 16:04 Globulin 4.3 g/dL (1.3-4.6) 05/04/24 16:04 TSH 8.92 uIU/mL (0.27-4.20) H 05/04/24 16:04 Adenovirus (PCR) Not detected (NOT DETECT) 05/04/24 15:45 C. pneumoniae DNA (PCR) Not detected (NOT DETECT) 05/04/24 15:45 Coronavirus 229E (PCR) Not detected (NOT DETECT) 05/04/24 15:45 Human Metapneumovir PCR Not detected (NOT DETECT) 05/04/24 15:45 Influenza A (H1) PCR Not detected (NOT DETECT) 05/04/24 15:45 Influ A (H1/09) PCR Not detected (NOT DETECT) 05/04/24 15:45 Influenza A (H3) PCR Not detected (NOT DETECT) 05/04/24 15:45 Influenza Type A (PCR) Not detected (NOT DETECT) 05/04/24 15:45 Influenza Type B (PCR) Not detected (NOT DETECT) 05/04/24 15:45 M. pneumoniae (PCR) Not detected (NOT DETECT) 05/04/24 15:45 Parainfluenza 1 (PCR) Not detected (NOT DETECT) 05/04/24 15:45 Parainfluenza 2 (PCR) Not detected (NOT DETECT) 05/04/24 15:45 Parainfluenza 3 (PCR) Not detected (NOT DETECT) 05/04/24 15:45 Parainfluenza 4 (PCR) Not detected (NOT DETECT) 05/04/24 15:45 RSV Type A (PCR) Not detected (NOT DETECT) 05/04/24 15:45 RSV Type B (PCR) Not detected (NOT DETECT) 05/04/24 15:45 Entero/Rhino (PCR) Not detected (NOT DETECT) 05/04/24 15:45 SARS-CoV-2 (PCR) Not detected (NOT DETECT) 05/04/24 15:45 Micro: Microbiology 05/04/24 15:45 Legionella Urinary Antigen - Final Urine,Voided 05/04/24 16:11 Blood Culture - Preliminary Blood SPECIMEN COLLECTED 05/04/24 16:04 Blood Culture - Preliminary Blood SPECIMEN COLLECTED A&P Assessment and plan (1) Right lower lobe consolidation: Patient presenting with fever, productive cough, leukocytosis with left shift-suspect pneumonia-she is covered with vancomycin and Zosyn Respiratory viral panel negative; bacterial antigens negative; Legionella urine antigen negative; MRSA nares pending; blood cultures pending; sent for procalcitonin CTA ruled out pulmonary embolism; reported new large lobulated masslike opacity in the right anterior basal segment extending to diaphragmatic pleural surface. Reported as concerning for malignancy; 4 months ago patient had a PET CT scan January 2024-which did not show any PET active lesions; it showed resolved superior segment right lower lobe consolidation. However there was mild residual opacities seen right lower lobe in place of prior consolidation with low-grade uptake less than 2 SUV suggestive of benign finding. Patient is non-smoker and with negative PET/CT and resolution of right lower lobe pneumonia in January 2024-doubtful if this is malignancy However we will schedule for bronchoscopic evaluation; and plan for airway clearance, obtain BAL for bacterial cultures, fungal cultures, obtain endobronchial biopsies as soon as schedule permits Consult Attestations Medical Necessity Statement: Patient will stay for greater than 2 nights Time Spent in Patient Care: Greater than 35 minutes (>than 50% of time spent in counselling and/or direct pt care on unit). Coding Level of Care Code Acute Code for [facility] Fwd Diagnoses Right lower lobe consolidation J18.1 Time Spent (min) 49
[2024-05-04 20:00] VITALS: BP 99/63; PULSE 84; RESP 17; TEMP 36.8; O2SAT 99
[2024-05-04] MEDS: topiramate 100 mg Tablet PO (20:04)
[2024-05-04] MEDS: benzonatate 100 mg Capsule PO (20:06)
[2024-05-04] MEDS: vancomycin 1,000 MG in sodium chloride 0.9% 250 ML 250 MG IV (20:06)
[2024-05-04 20:08] VITALS: RESP 18
[2024-05-04] MEDS: oxyCODONE 5 mg IR Tab/Cap PO (20:08)
[2024-05-04 20:39] VITALS: PULSE 81; O2SAT 99
[2024-05-04] MEDS: iohexol 350 mg/mL 500 mL Btl (per mL) IV (20:55)
[2024-05-04 22:33] VITALS: BP 115/68; TEMP 37.2
[2024-05-04] MEDS: acetaminophen 325 mg Tablet 650 MG PO (22:52)
[2024-05-04] MEDS: cyclobenzaprine 10 mg Tablet PO (22:52)
[2024-05-05] VITALS (10 sets, daily range): BP systolic 95–111; BP diastolic 57–73; PULSE 58–87; RESP 16–18; TEMP 36.4–37.1; O2SAT 95–97
[2024-05-05] MEDS: benzonatate 100 mg Capsule 200 MG PO ×3 (00:48→16:52)
[2024-05-05] MEDS: piperacillin-tazobactam 3.375 GM in sodium chloride 0.9% (plus) 50 ML IV ×3 (00:48→16:51)
[2024-05-05 05:40] LABS: Procalcitonin 0.09 ng/mL (0-0.5)
[2024-05-05] MEDS: vancomycin 1,000 MG in sodium chloride 0.9% 250 ML 250 MG IV ×2 (07:58→20:21)
[2024-05-05] MEDS: V 40 MG PO (08:00)
[2024-05-05] MEDS: meloxicam 7.5 mg tablet 15 MG PO (08:00)
[2024-05-05] MEDS: pantoprazole DR 40 mg Tablet PO (08:00)
[2024-05-05] MEDS: topiramate 100 mg Tablet PO ×2 (08:00→18:44)
[2024-05-05] MEDS: oxyCODONE 5 mg IR Tab/Cap PO ×2 (08:01→13:29)
[2024-05-05] MEDS: levothyroxine 137 mcg Tablet PO (08:10)
--- NOTE | 2024-05-05 09:09 | FL_ITS ---
WS: [id number] [place] barium swallow [id number] REASON FOR EXAM: recurrent pneumonia, reflux FLUOROSCOPY TIME: 2min [id number] # OF SPOT FILMS: 8 FINDINGS: Patient was examined in the standing AP and lateral projections, supine SLATER, supine. Multiple swallows of barium were monitored fluoroscopically and multiple rapid sequence spot films we re obtained. No abnormality of the cervical esophagus was identified. In the upright position the thoracic esophagus appears normal. In the SLATER position there was some weakening of the primary peristaltic wave of the esophagus without tertiary contractions. There was some retention of the barium which cleared with dry swallowing. When the patient was turned from the SLATER position to the supine position there was major reflux up to the level of the thoracic inlet. This barium was retained in the esophagus until additional dry swal lows were made. FL/FL barium swallow [id number] IMPRESSION: There is mild loss of the primary peristaltic wave of the esophagus with some r etention of the barium which cleared with additional swallowing. There was significant reflux in the supine position as above.
--- NOTE | 2024-05-05 10:36 | P.PN_ITS ---
Subjective 2 Subjective: Still having pain on the right side. Still coughing quite a bit. No fever overnight. Medications: Reviewed: Yes Vitals/I&O/Wt Last Vital Signs Temp 98.6 F 05/05/24 07:25 Pulse 58 L 05/05/24 07:25 Resp 18 05/05/24 08:01 BP 100/66 05/05/24 07:25 Pulse Ox 97 05/05/24 08:04 O2 Del Method Room Air 05/05/24 08:04 05/04/24 05/05/24 05/05/24 22:59 06:59 14:59 Intake Total 570 / 570 850 / 1420 250 / 250 Output Total 300 / 300 1500 / 1800 Balance 270 / 270 -650 / -380 250 / 250 Weight last 48 hrs Weight 76.113 kg Weight 67.132 kg Physical Exam 2 Narrative: General exam is a white female no distress Cardiovascular regular rate and rhythm Lungs relatively clear bilaterally. I do not notice diminished breath sounds on the right. No wheezes. Few coarse breath sounds in the right lower lung. Abdomen is soft, positive bowel sounds. No obvious organomegaly Extremities trace edema. No cyanosis or clubbing Data 05/04/24 16:04 05/04/24 16:04 Other Labs: CTA of chest demonstrates lobulated masslike structure right pulmonary base Respiratory panel negative Legionella negative Blood culture pending Micro: Microbiology 05/04/24 15:45 Legionella Urinary Antigen - Final Urine,Voided 05/04/24 16:11 Blood Culture - Preliminary Blood SPECIMEN COLLECTED 05/04/24 16:04 Blood Culture - Preliminary Blood SPECIMEN COLLECTED A&P Assessment and plan (1) Pneumonia: Patient diagnosed with pneumonia approximately 1 week ago, for which she was placed on Levaquin. She has had persistent symptoms since that time, including fever. She is not significantly improved. Her x-ray, done on April 27 suggested a possible effusion. She has some issues with chronic reflux making aspiration a possibility. She has had previous workup with a PET scan and biopsy for concerns of lung mass on that side which were negative. 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 At this point she has pneumonia, failing outpatient treatment. As there is a possibility of aspiration I will initially treat her with vancomycin and Zosyn. Continue vancomycin and Zosyn at this time Await cultures Appreciate pulmonary consult Secondary to CT findings bronchoscopy will likely be performed tomorrow. Check barium swallow secondary to concern of aspiration Plan Multiple other medical problems as outlined in the past medical history Full code currently SCDs for DVT prophylaxis. 1 dose of heparin now. Hold further as biopsy might be for performed tomorrow Attestations 2 Medical Necessity Statement*: Requires continued hospitalization for IV antibiotics for pneumonia failing outpatient treatment and workup of lung mass Diagnoses Pneumonia J18.9 Time Spent (min) 24
[2024-05-05] MEDS: heparin 5,000 unit/mL INJ 1 mL 5000 UNIT SUBCUT (13:06)
[2024-05-05] MEDS: cyclobenzaprine 10 mg Tablet PO (16:52)
--- NOTE | 2024-05-05 18:07 | P.PN_ITS ---
Subjective 2 Subjective: Patient continues to have right-sided pleuritic pain CT chest showed right lower lobe mass-suspected for consolidation/malignancy; PET/CT 3 months ago in January 2024 did not show any activity Overall she tells she has slight improvement in her breathing; currently she is saturating well on room air Will schedule for bronchoscopy guided biopsies of right lower lobe mass and also obtain BAL for cultures and cytology Medications: Reviewed: Yes Vitals/I&O/Wt Last Vital Signs Temp 98.7 F 05/05/24 16:00 Pulse 77 05/05/24 16:00 Resp 16 05/05/24 16:00 BP 110/69 05/05/24 16:00 Pulse Ox 97 05/05/24 16:00 O2 Del Method Room Air 05/05/24 16:00 05/05/24 05/05/24 05/05/24 06:59 14:59 22:59 Intake Total 850 / 1420 300 / 300 Output Total 1500 / 1800 900 / 900 Balance -650 / -380 -600 / -600 Weight last 48 hrs Weight 167 lb 12.8 oz Weight 148 lb Physical Exam 2 Narrative: General: alert, NAD HEENT: conj clear, EOMI, PERRL, mmm, Neck: supple, no meningismus Heme: no cervical LAP Respiratory: Inspection: No visible deformity of the chest wall Palpation: Trachea is mildly deviated to the right, bilateral symmetric expansion Percussion: Bilateral tympanic percussion note both anterior and posteriorly Auscultation: Mild crepitation on right lower lung zone otherwise clear Cardiovascular: rrr, nl s1s2, no mrg Abdomen: soft, nt, nd, no r/g, bs+ Extremities: pulses +, no edema, no c/c : no CVA tenderness Skin: intact, no rash MSK: no back or neck pain Neurologic: grossly intact Data 05/04/24 16:04 05/04/24 16:04 Other Labs: Radiology Impressions Chest X-Ray 05/04/24 15:20 IMPRESSION: No significant change. Chest CTA 05/04/24 17:55 IMPRESSION: 1. No large central pulmonary emboli.Bolus timing is insufficient for definitive exclusion of small peripheral pulmonary emboli. 2. New large lobulated masslike opacity in the right pulmonary base, concerning for malignancy. Additional right-sided densities as above. Barium Swallow X-Ray 05/05/24 09:09 IMPRESSION: There is mild loss of the primary peristaltic wave of the esophagus with some retention of the barium which cleared with additional swallowing. There was significant reflux in the supine position as above. Laboratory Results WBC 12.99 10^3/uL (3.29-11.43) H 05/04/24 16:04 RBC 3.59 10^6/uL (3.85-5.65) L 05/04/24 16:04 Hgb 10.90 g/dL (11.27-16.99) L 05/04/24 16:04 Hct 35.0 % (36-47) L 05/04/24 16:04 MCV 97.5 fl (85-98) 05/04/24 16:04 MCH 30.4 pg (27-33) 05/04/24 16:04 MCHC 31.1 g/dL (30-55) 05/04/24 16:04 RDW 13.2 % (12.1-15.1) 05/04/24 16:04 Plt Count 359 10^3/cmm (157-399) 05/04/24 16:04 MPV 8.2 fL (7.4-10.4) 05/04/24 16:04 Neut % (Auto) 80.7 % 05/04/24 16:04 Lymph % (Auto) 9.9 % 05/04/24 16:04 Cochran % (Auto) 5.6 % 05/04/24 16:04 Eos % (Auto) 1.8 % 05/04/24 16:04 Baso % (Auto) 0.3 % 05/04/24 16:04 Neut # (Auto) 10.48 10^3/uL (1.8-7.7) H 05/04/24 16:04 Lymph # (Auto) 1.3 10^3/uL (0.8-4.8) 05/04/24 16:04 Cochran # (Auto) 0.7 10^3/uL (0.2-0.9) 05/04/24 16:04 Eos # (Auto) 0.2 10^3/uL (0.0-0.8) 05/04/24 16:04 Baso # (Auto) 0.0 10^3/uL (0.0-0.1) 05/04/24 16:04 Nucleated RBC % (auto) 0 % 05/04/24 16:04 Nucleated RBCs # 0.0 /100WBC 05/04/24 16:04 Sodium 135 mmol/L (136-145) L 05/04/24 16:04 Potassium 4.3 mmol/L (3.5-5.1) 05/04/24 16:04 Chloride 103 mmol/L (98-107) 05/04/24 16:04 Carbon Dioxide 22 mmol/L (22-29) 05/04/24 16:04 Anion Gap 14.3 (5-19) 05/04/24 16:04 BUN 15 mg/dL (8-23) 05/04/24 16:04 Creatinine 0.8 mg/dL (0.5-0.9) 05/04/24 16:04 GFR Calculation 72.2 mL/min (90-130) L 05/04/24 16:04 Glucose 86 mg/dL (65-115) 05/04/24 16:04 Calculated Osmolality 280 mOsm/kg (285-295) L 05/04/24 16:04 Calcium 8.2 mg/dL (8.5-10.5) L 05/04/24 16:04 Total Bilirubin 0.2 mg/dL (0.15-1.2) 05/04/24 16:04 AST 11 U/L (0-32) 05/04/24 16:04 ALT 8 U/L (0-33) 05/04/24 16:04 Alkaline Phosphatase 104 U/L (35-105) 05/04/24 16:04 Total Protein 6.9 g/dL (6.6-8.7) 05/04/24 16:04 Albumin 2.6 g/dL (3.5-5.2) L 05/04/24 16:04 Globulin 4.3 g/dL (1.3-4.6) 05/04/24 16:04 Procalcitonin 0.09 ng/mL (0-0.5) 05/05/24 04:50 TSH 8.92 uIU/mL (0.27-4.20) H 05/04/24 16:04 Adenovirus (PCR) Not detected (NOT DETECT) 05/04/24 15:45 C. pneumoniae DNA (PCR) Not detected (NOT DETECT) 05/04/24 15:45 Coronavirus 229E (PCR) Not detected (NOT DETECT) 05/04/24 15:45 Human Metapneumovir PCR Not detected (NOT DETECT) 05/04/24 15:45 Influenza A (H1) PCR Not detected (NOT DETECT) 05/04/24 15:45 Influ A (H1/09) PCR Not detected (NOT DETECT) 05/04/24 15:45 Influenza A (H3) PCR Not detected (NOT DETECT) 05/04/24 15:45 Influenza Type A (PCR) Not detected (NOT DETECT) 05/04/24 15:45 Influenza Type B (PCR) Not detected (NOT DETECT) 05/04/24 15:45 M. pneumoniae (PCR) Not detected (NOT DETECT) 05/04/24 15:45 Parainfluenza 1 (PCR) Not detected (NOT DETECT) 05/04/24 15:45 Parainfluenza 2 (PCR) Not detected (NOT DETECT) 05/04/24 15:45 Parainfluenza 3 (PCR) Not detected (NOT DETECT) 05/04/24 15:45 Parainfluenza 4 (PCR) Not detected (NOT DETECT) 05/04/24 15:45 RSV Type A (PCR) Not detected (NOT DETECT) 05/04/24 15:45 RSV Type B (PCR) Not detected (NOT DETECT) 05/04/24 15:45 Entero/Rhino (PCR) Not detected (NOT DETECT) 05/04/24 15:45 SARS-CoV-2 (PCR) Not detected (NOT DETECT) 05/04/24 15:45 Micro: Microbiology 05/04/24 16:11 Blood Culture - Preliminary Blood NEGATIVE TO DATE 05/04/24 16:04 Blood Culture - Preliminary Blood NEGATIVE TO DATE 05/04/24 15:45 Legionella Urinary Antigen - Final Urine,Voided A&P Assessment and plan (1) Right lower lobe consolidation: Patient presenting with fever, productive cough, leukocytosis with left shift- suspect pneumonia-she is covered with vancomycin and Zosyn Respiratory viral panel negative; bacterial antigens negative; Legionella urine antigen negative; MRSA nares pending; blood cultures pending; sent for procalcitonin CTA ruled out pulmonary embolism; reported new large lobulated masslike opacity in the right anterior basal segment extending to diaphragmatic pleural surface. Reported as concerning for malignancy; 4 months ago patient had a PET CT scan January 2024-which did not show any PET active lesions; it showed resolved superior segment right lower lobe consolidation. However there was mild residual opacities seen right lower lobe in place of prior consolidation with low-grade uptake less than 2 SUV suggestive of benign finding. Patient is non-smoker and with negative PET/CT and resolution of right lower lobe pneumonia in January 2024-doubtful if this is malignancy However we will schedule for bronchoscopic evaluation; and plan for airway clearance, obtain BAL for bacterial cultures, fungal cultures, obtain endobronchial biopsies tomorrow morning; n.p.o. after midnight. I have discussed with patient we will use robotic navigational guided biopsy of suspicious lesion as well as endobronchial ultrasound-guided surveillance of hilar/mediastinal lymph nodes. I have explained about the complications like pneumothorax given her significant background emphysema which may require chest tube placement. Bleeding is another possibility, majority of times the bleeding is controlled with instillation of cold saline or diluted epinephrine but extremely rarely to bleeding may not be well controlled, which may result in prolonged intubation and possibly bronchial ambreen placement to protect nonbleeding airway, convalescence in ICU, may even need IR embolization. There is also a very small chance of missing the lesion due to technical factors which may result in repeating the procedure. These are rare possibilities with current software combined with using live radial ultrasound,. Patient verbalized understanding for the indication of the procedure, nature of the procedure, alternatives, complications, benefits and agreed to proceed. Attestations 2 Medical Necessity Statement*: Expected stay greater than 2 nights Time Spent in Patient Care: Greater than 35 minutes (>than 50% of time spent in counselling and/or direct pt care on unit) . Coding Level of Care Code Acute Code for Chg Fwd Diagnoses Right lower lobe consolidation J18.1 Time Spent (min) 37
[2024-05-05] MEDS: HYDROcodone-acetaminophen 10-325 mg Tablet 1 TAB PO (20:20)
[2024-05-05] MEDS: trazodone 100 mg Tablet PO (20:21)
[2024-05-06] VITALS (14 sets, daily range): BP systolic 92–123; BP diastolic 57–75; PULSE 62–84; RESP 15–18; TEMP 36.5–36.8; O2SAT 91–97
[2024-05-06] MEDS: benzonatate 100 mg Capsule 200 MG PO ×3 (00:50→22:02)
[2024-05-06] MEDS: piperacillin-tazobactam 3.375 GM in sodium chloride 0.9% (plus) 50 ML IV ×2 (00:51→15:14)
[2024-05-06] MEDS: HYDROcodone-acetaminophen 10-325 mg Tablet 1 TAB PO ×2 (04:52→16:27)
[2024-05-06] MEDS: sodium chloride 0.9% 1,000 ML 30 ML IV (06:47)
--- NOTE | 2024-05-06 06:48 | SC_ITS ---
WS: [id number] XR chest 1V [id number] REASON FOR EXAM: ION ASSISTED ROBOTIC BRONCHOSCOPY FINDINGS: Bronchoscope in the trachea. No right pneumothorax or evidence of pulmonary hemorrhage. SC/C-arm FL for Bronchoscopy IMPRESSION: Post bronchoscopy biopsy with no complication identified.
--- NOTE | 2024-05-06 06:55 | ANES.PREANE2 ---
Pre-Anesthetic Assessment Height/Weight: Height 1.65 m Weight 75.387 kg Temp Pulse Resp BP Pulse Ox O2 Del Method 97.8 F 68 16 105/59 94 Room Air 05/06/24 06:29 05/06/24 06:29 05/06/24 06:29 05/06/24 06:29 05/06/24 06:29 05/06/24 06:29 Operation Date: 05/06/24 07:00 Proposed Procedures p Ion Robotic Assisted Bronchoscopy(Not Applicable) - Aditya Kovacs MD Familial anesthetic complications: None Was Beta Christopher taken within 24 hours: N/A Was Clonidine taken within 24 hours: N/A Last intake: > 8hrs Social No alcohol and No tobacco Exam alert, oriented x 3, clear to auscultation bilaterally and regular rate & rhythm Pulmonary Chronic Obstructive Pulmonary Disease pneumonia CV/HEM Hypertension GI Gastroesophageal Reflux Disease Metabolic Hyperlipidemia and Thyroid Disease Anesthetic Plan ASA status: 3 Anesthesia: General Risk of > 500 ml blood loss (7ml/kg in children): No Medications/Allergies Home Medications Medication Instructions Recorded Confirmed Last Taken Type lovastatin 40 mg tablet 40 mg PO DAILY 09/11/20 05/04/24 05/03/24 18:00 History topiramate 100 mg tablet (Topamax) 100 mg PO BID 09/11/20 05/04/24 05/04/24 08:00 History conj estrogen-medroxyprogesterone 1 tab PO DAILY 02/02/23 05/04/24 05/04/24 08:00 History 0.3 mg-1.5 mg tablet (Prempro) meloxicam 15 mg tablet 15 mg PO DAILY 02/02/23 05/04/24 12/07/23 History alprazolam 0.5 mg tablet 0.5 mg PO Q6H PRN Anxiety 08/01/23 05/04/24 12/07/23 History cyclobenzaprine 10 mg tablet 10 mg PO DAILY PRN Pain (Scale 08/01/23 05/04/24 12/07/23 History Score 1-3) furosemide 20 mg tablet 20 mg PO DAILY PRN Edema 08/01/23 05/04/24 2 Weeks Ago History ~08/06/23 hydrocodone 10 mg-acetaminophen 1 tab PO Q8H PRN Pain 08/01/23 05/04/24 12/08/23 History 325 mg tablet nitroglycerin 0.4 mg sublingual 0.4 mg sublingual PRN PRN Chest 08/01/23 05/04/24 Unknown History tablet Pain ondansetron 4 mg disintegrating 4 mg PO Q8H PRN Nausea 08/01/23 05/04/24 12/04/23 History tablet oxycodone 5 mg tablet 5 mg PO Q6H PRN Pain 08/01/23 05/04/24 08/18/23 History potassium chloride 10 mEq 10 meq PO PRN 08/01/23 05/04/24 2 Weeks Ago History tablet,extended release ~08/06/23 trazodone 50 mg tablet 100 mg PO DAILY 08/01/23 05/04/24 05/03/24 20:00 History pantoprazole 40 mg tablet,delayed 40 mg PO DAILY 11/27/23 05/04/24 05/04/24 08:00 History release (Protonix) levothyroxine 137 mcg tablet 137 mcg PO DAILY 05/04/24 05/04/24 05/04/24 08:00 History Allergies Allergy/AdvReac Type Severity Reaction Status Date / Time benzoin Allergy blisters Verified 01/15/24 15:15 codeine Allergy headache Verified 01/15/24 15:15 morphine Allergy headache Verified 01/15/24 15:15 Current Medications Generic Name Dose Route Start Last Admin Trade Name Freq PRN Reason Stop Dose Admin Acetaminophen 650 mg 05/04/24 14:53 05/04/24 22:52 Acetaminophen 325 Mg Tablet PO 650 mg Q6H PRN Administration Mild/Mod Pain Or Temp >/= 101 Hydrocodone Bitart/Acetaminophen 1 tab 05/05/24 19:38 05/06/24 04:52 Hydrocodone-Acetaminophen 10-325 Mg Tablet PO 1 tab Q8H PRN Administration Pain Atorvastatin Calcium 40 mg 05/05/24 09:00 05/05/24 08:00 V PO 40 mg DAILY TONI Administration Benzonatate 200 mg 05/05/24 00:32 05/06/24 00:50 Benzonatate 100 Mg Capsule PO 200 mg TID PRN Administration COUGH Cyclobenzaprine HCl 10 mg 05/04/24 17:56 05/05/24 16:52 Cyclobenzaprine 10 Mg Tablet PO 10 mg DAILY PRN Administration Pain (Scale Score 1-3) Piperacillin Sod/Tazobactam 50 mls @ 12.5 mls/hr 05/04/24 15:30 05/06/24 04:54 Sod 3.375 gm/ Sodium Chloride IV Infused Q8H TONI Infusion Protocol As Directed Vancomycin HCl 1,000 mg/ 250 mls @ 250 mls/hr 05/04/24 20:30 05/05/24 21:38 Sodium Chloride IV Infused Q12H TONI Infusion Sodium Chloride 1,000 mls @ 30 mls/hr 05/06/24 06:45 05/06/24 06:47 Sodium Chloride 0.9% IV 05/07/24 06:44 30 mls/hr .Q24H TONI Administration Levothyroxine Sodium 137 mcg 05/05/24 09:00 05/05/24 08:10 Levothyroxine 137 Mcg Tablet PO 137 mcg DAILY TONI Administration Pantoprazole Sodium 40 mg 05/05/24 09:00 05/05/24 08:[address] 40 Mg Tablet PO 40 mg DAILY TONI Administration Topiramate 100 mg 05/04/24 18:00 05/05/24 18:44 Topiramate 100 Mg Tablet PO 100 mg BID TONI Administration Trazodone HCl 100 mg 05/05/24 21:00 05/05/24 20:21 Trazodone 100 Mg Tablet PO 100 mg BEDTIME TONI Administration PFSH Anesthesia Medical History Fibromyalgia Osteoarthritis GERD (gastroesophageal reflux disease) High cholesterol Hypothyroid Chronic back pain Surgical History History of cholecystectomy Hx of spinal surgery H/O elbow surgery H/O hand surgery H/O shoulder surgery Family History Other Cancer Social History Smoking and tobacco/nicotine status: never used tobacco/nicotine Alcohol intake: never Data Anesthesia 05/04/24 16:04 05/04/24 16:04 Short CBC 05/04/24 Range/Units 16:04 WBC 12.99 H (3.29-11.43) 10^3/uL Hgb 10.90 L (11.27-16.99) g/dL Hct 35.0 L (36-47) % MCV 97.5 (85-98) fl Plt Count 359 (157-399) 10^3/cmm Neut % (Auto) 80.7 % Neut # (Auto) 10.48 H (1.8-7.7) 10^3/uL BMP 05/04/24 16:04 Sodium 135 L Potassium 4.3 Chloride 103 Carbon Dioxide 22 BUN 15 Creatinine 0.8 Glucose 86 Calcium 8.2 L Liver Function 05/04/24 Range/Units 16:04 Total Bilirubin 0.2 (0.15-1.2) mg/dL AST 11 (0-32) U/L ALT 8 (0-33) U/L Alkaline Phosphatase 104 (35-105) U/L Albumin 2.6 L (3.5-5.2) g/dL COVID Results 05/04/24 15:45 Coronavirus 229E (PCR) Not detected SARS-CoV-2 (PCR) Not detected Microbiology 05/04/24 16:11 Blood Culture - Preliminary Blood NEGATIVE TO DATE 05/04/24 16:04 Blood Culture - Preliminary Blood NEGATIVE TO DATE Cardiac Studies: Echocardiogram 02/21/23 Sestamibi Stress Test (Cardiology) 02/21/23
[2024-05-06] MEDS: lidocaine 1% INJ 10 mL (per mL) XX (07:29)
--- NOTE | 2024-05-06 08:47 | XR_ITS ---
WS: [id number] XR chest 1V [id number] REASON FOR EXAM: ION ASSISTED ROBOTIC BRONCHOSCOPY FINDINGS: Bronchoscope in the trachea. No right pneumothorax or evidence of pulmonary hemorrhage.
--- NOTE | 2024-05-06 09:04 | XRR_ITS ---
PROCEDURE INFORMATION: Exam: XR Chest Exam date and time: 05/06/2024 9:17 AM Age: 63 years old Clinical indication: Device placement; Other: Post ion bronch; Prior surgery; Surgery date: Post-operative (0-2 days); Additional info: Post ion, will call when PT arrives in pacu TECHNIQUE: Imaging protocol: Radiologic exam of the chest. Views: 1 view. COMPARISON: CT angio chest PE protcl [id number] 05/04/2024 8:53 PM FINDINGS: Lungs: Stable right lower lobe opacity with small effusion. Pleural spaces: Unremarkable. No pleural effusion. No pneumothorax. Heart/Mediastinum: No change in the heart, mediastinum, or bony thorax. Bones/joints: See Heart/Mediastinum finding. Gastrointestinal tract: Contrast residue within colon. Evidence of upper abdominal surgery. XR/XR chest 1V portable [id number] IMPRESSION: No significant change.
--- NOTE | 2024-05-06 09:35 | ANE.PACU2 ---
Inpatient post-anesthesia follow up: Airway intact: Yes Vital signs: Temperature 98.0 F Pulse Rate 66 Respiratory Rate 16 Blood Pressure 105/72 Pulse Oximetry 97 Oxygen Delivery Me thod [ Room Air Current Rate & Del rachel] Oxygen Delivery Me thod Room Air Oxygen Flow Rate 6 Fraction of Inspir ed Oxygen Hydration adequate: Yes Nausea and vomiting: No Pain level: 1 Mental status: Baseline
--- NOTE | 2024-05-06 09:41 | P.OP_ITS ---
Operative Report Date of procedure: May 06, 2024 Pre-op diagnosis: Nonresolving pneumonia with right lower lobe consolidation-suspicious for malignancy Post-op diagnosis: Same Procedure done: 62268 Bronch via Trach site 37917 Dx Bronchoscope w/Washings or airway inspection 52280 Bx Bronchoscope w/Brushings or protected brushings 60576 Dx Bronchoscope w/BAL 67074 Bronch with computer image guided Navigational Bronchoscopy 15756 Bronchoscopy w/Transbronchial lung biopsy(s), single lobe 88548 Bronchoscopy w/Transbronchial needle aspiration biopsy(s), tracheal, main stem, and/or lobar bronchus 23805 w/Transbronchial lung biopsy(s), each additional lobe (list separately, in addition to code for primary procedure) 43701 w/Transbronchial needle aspiration biopsy(s), each additional lobe (list separately, in addition to code for primary procedure) 77400 Bronchoscopy w/ therapeutic aspiration of the tracheobronchial tree (clearance of airway secretions, removal of mucus plugs) 52032 EBUS Sampling 1/2 nodes 05580 EBUS Diag or Interven Peripheral lesion (radial EBUS) Surgeon: Aditya Kovacs MD Brief History: Marielle Stark is a 63 year old female presented to the emergency room from her PCP clinic after failing outpatient treatment for her pneumonia. 6 months ago October 2023-she had pneumonia which did not respond to 2 different courses of antibiotics-CT chest November 14, 2023 showed consolidative mass in superior segment of right lower lobe for which she underwent navigational bronchoscopy guided biopsies 12/08/2023 which were negative for malignancy. A follow-up PET/CT in January 2024-showed resolution of most of the consolidation however there were mild residual opacities seen right lower lobe in place of prior consolidation with low-grade uptake less than 2 SUV suggestive of benign finding. She was symptom free from January 2024 to March 2024 For the last 2 to 3 weeks she has been having productive cough, fevers, and received course of azithromycin and currently on levofloxacin with no improvement in her symptoms. Her chest x-ray showed consolidation in right lower lobe and hence she was referred to ER. CTA on admission 05/04/2024 ruled out pulmonary embolism; reported new large lobulated masslike opacity in the right anterior basal segment extending to diaphragmatic pleural surface. Reported as concerning for malignancy; there is also smaller spiculated density measuring 8 mm in the right upper lobe. Patient is non-smoker. Today she is scheduled for bronchoscopic evaluation; and plan for airway clearance, obtain BAL for bacterial cultures, fungal cultures, obtain endobronchial biopsies of right lower lobe lesions. Procedure: Pre-procedure Verification: Prior to the procedure, the patient's identity was verified by full name, date of and medical record number. The patient's identity was verified on all pertinent medical records. Also prior to the procedure, a History and Physical was performed, and patient medications, allergies and sensitivities were reviewed. The patient's tolerance of previous anesthesia was reviewed. The risks and benefits of the procedure and the sedation options and risks were discussed with the patient. All questions were answered and informed consent was obtained. Planning: Using the HDmessaging planning software, this patient?s preoperative CT was loaded onto the system and then target and pathway mapping was performed. This was all done prior to the start of the procedure and appropriate plan verified prior to induction. Anesthesia: General anesthesia was used. Please see anesthesiology documentation for full details. A modified LNVP/Allie Protocol was used for robotic bronchoscopy with rapid Intubation, recruitment maneuvers, Tidal Volume around 8-10mL/Kg [place] Body Weight, and PEEP 10-15 as feasible. Time-Out: Prior to the start of the procedure, the patient's identification, proposed procedure, accurate signed consent, correctly labeled images and records, and need for prophylactic antibiotics were verified by the physician, the nurse, the anesthesiologist and the manager completions in the procedure room. Procedural Details: After obtaining informed consent, The procedure was accomplished without difficulty. The patient tolerated the procedure well. Patient preparation: Patient was placed under general anesthesia. An 8.0 ETT was placed for bronchoscopy. The larynx and vocal cords were not visualized. The trachea was anatomically normal. There were significant thick mucus secretions in the trachea which were suctioned right away. The right sided airway was anatomically normal without endobronchial lesions. there were thick appearing secretions in most of the airway which were suctioned. The left side airways was anatomically normal without endobronchial lesions. Therapeutic aspiration of the airways, initial encounter, was performed at the right bronchial tree. The therapeutic bronchoscope was then removed. We communicated with the anesthesia team to ensure proper ventilator settings for optimal peripheral bronchoscopy. FIRST LESION IN anterior segment of right lower lobe: The Ion Shape Sensing Robotic Assisted Bronchoscope was brought into the field and the process of registration was carried out. The guide catheter was used for peripheral navigational bronchoscopy using the planned pathway into the anterior segment of right lower lobe mass and was able to be wedged peripherally at a distance of 4 mm away from the target. We locked the catheter position in, and removed the vision probe. We introduced the radial EBUS probe and obtained an concentric signal [id number] image location relative to the lesion in the same lobe. We confirmed our location with a fluoroscopic C-arm. We then removed the R-EBUS and introduced the biopsy tools starting with a 19 G ION bronchoscopic peripheral needle for Transbronchial Needle Aspirations (TBNA). The first pass was not sent for Rapid On Site Evaluation (DEBI) as we do not have onsite pathology. We continued more biopsies in a cloud format. Transbronchial biopsies of anterior segment of right lower lobe mass using forceps. Transbronchial biopsy technique was selected because the sampling site was not visible endoscopically. The sampling device penetrated the full thickness of the bronchial wall to obtain the biopsy of lung tissue. 6 biopsy passes were performed, and the same number of biopsy samples were obtained. Endobronchial protective brushings were collected at the anterior segment of right lower lobe lesion using a microbiology/cytology brush Finally, we used a 10cc syringe filled with normal saline connected to the proxi mal portion of the ION catheter and slowly injected 20 cc and aspirated the contents for a bronchial alveolar lavage of the anterior segment of right lower lobe. The return was cloudy and blood tinged 13 cc . Empiric cold saline was instilled through the catheter and tamponade held for 1-5 minutes. The guide catheter was used for peripheral navigational bronchoscopy using the planned pathway into the superior segment of right lower lobe mass and was able to be wedged peripherally at a distance of 4 mm away from the target. We locked the catheter position in, and removed the vision probe. At this point and after confirming the absence of bleeding, we removed the channel. Minimal blood residue was cleared from the airway and the peripheral navigation portion of the procedure was concluded. Empiric cold saline was instilled through the catheter and tamponade held for 1-5 minutes. Second Lesion in superior segment of Right Lower Lobe: The guide catheter was used for peripheral navigational bronchoscopy using the planned pathway into the superior segment of right lower lobe lesion and was able to be wedged peripherally at a distance of 4 mm away from the target. We locked the catheter position in, and removed the vision probe. We introduced the radial EBUS probe and obtained an weak eccentric signal location relative to the lesion in the same lobe. We confirmed our location with a fluoroscopic C-arm. We then removed the R-EBUS and introduced the biopsy tools starting with a 23 G ION bronchoscopic peripheral needle for Transbronchial Needle Aspirations (TBNA). The first pass was not sent for Rapid On Site Evaluation (DEBI) as we do not have onsite pathology. We continued more biopsies in a cloud format. Transbronchial biopsies of superior segment of right lower lobe lesion using forceps. Transbronchial biopsy technique was selected because the sampling site was not visible endoscopically. The sampling device penetrated the full thicknes s of the bronchial wall to obtain the biopsy of lung tissue. 4 biopsy passes were performed, and the same number of biopsy samples were obtained. Finally, we used a 10cc syringe filled with normal saline connected to the proximal portion of the ION catheter and slowly injected 20 cc and aspirated the contents for a bronchial alveolar lavage of the superior segment of right lower lobe. The return was cloudy and blood tinged 13 cc . At this point and after confirming the absence of bleeding, we removed the channel. Minimal blood residue was cleared from the airway and the peripheral navigation portion of the procedure was concluded. Empiric cold saline was instilled through the catheter and tamponade held for 1-5 minutes. Next, we turned our attention to linear EBUS staging. An EBUS exam was performed: - Stations 7, 12 R were enlarged > 5mm and sampled in that order. - Stations [10L, 4L, 4R, 10 R, 11L] were also scanned but <5mm and thus did not meet criteria for sampling. - Level 7 station was identified with the EBUS scope at the medial LMSB/RMSB and 3 passes were made using a 21 G Olympus TBNA needle. - Level 11R station was identified with the EBUS scope at the RBI/R hilum and 3 passes were made using a 21G Olympus TBNA needle. - Rapid onsite path evaluation (DEBI) was not utilized for this case. - Following completion of all diagnostic and therapeutic procedures, hemostasis was verified. The scope was removed and procedure concluded. Samples: A. Anterior segment of right lower lobe mass 1. Total of 6 passes were made using needle aspiration ; we do not have onsite pathology and so all the material was placed in formalin for histopathology 2. Targeting the same area 6 passes were made using forceps ; we do not have onsite pathology and so all the material was placed in formalin for histopathol ogy except 1 pass was placed in sterile cup and sent for tissue culture. 3. Targeting the same area 1 passes were made using Cytobrush; we do not have onsite pathology and so all the material was placed in formalin for histopathology 4. Bronchoscope was wedged at the entrance of the superior segment right lower lobe, 20 mL of saline was instilled and returned 13 mL of bronchoalveolar lavage . The fluid was mixed with blood and specks of tissue. Samples for cell count, cytology, Gram stain cultures, fungal cultures A. Lesion in superior segment of right lower lobe 1. Total of 4 passes were made using needle aspiration ; we do not have onsite pathology and so all the material was placed in formalin for histopathology 2. Targeting the same area 4 passes were made using forceps ; we do not have onsite pathology and so all the material was placed in formalin for histopathology 3. Bronchoscope was wedged at the entrance of the superior segment right lower lobe, 20 mL of saline was instilled and returned 13 mL of bronchoalveolar lavage . The fluid was mixed with blood and specks of tissue. Samples for cell count, cytology, cultures B. EBUS guided Fine-needle aspiration biopsies were taken from station 7, Station 11 R 5. Total of 3 passes were made using needle aspiration from station 7; all the material was placed in formalin and sent for histopathology 6. Total of 3 passes were made using needle aspiration from station 11R; all the material was placed in formalin and sent for histopathology Complications: None.The patient was extubated and brought to the PACU in stable condition. Postprocedure chest x-ray: There is no evidence of pneumothorax Disposition: Patient can be transferred back to [facility]. Pt, is aware that I am going to call them to update final biopsy results once available.
[2024-05-06 09:44] LABS: Cyto Order Verification Order Verified
[2024-05-06 09:44] LABS: Cyto Order Verification Order Verified
--- NOTE | 2024-05-06 09:44 | PC.NURSE ---
Pt returns from Bronch procedure. VSS.
[2024-05-06 10:26] LABS: Basophils # 0.1 10^3/uL (0.0-0.1); Basophils % 0.3 %; Eosinophils # 0.1 10^3/uL (0.0-0.8); Eosinophils % 0.7 %; Hematocrit 35.5 % (36-47); Lymphocytes # 1.1 10^3/uL (0.8-4.8); Mean Corpuscular HGB Conc 30.7 g/dL (30-55); Mean Corpuscular Hemoglobin 30.2 pg (27-33); Mean Corpuscular Volume 98.3 fl (85-98); Mean Platelet Volume 7.8 fL (7.4-10.4); Monocytes # 0.3 10^3/uL (0.2-0.9); Monocytes % 1.4 %; Neutrophils # 16.98 10^3/uL (1.8-7.7); Neutrophils % 90.4 %; Nucleated Red Blood Cells % 0 %; Platelet Count 362 10^3/cmm (157-399); Red Blood Count 3.61 10^6/uL (3.85-5.65); Red Cell Distribution Width 13.3 % (12.1-15.1); White Blood Count 18.79 10^3/uL (3.29-11.43)
[2024-05-06] MEDS: levothyroxine 137 mcg Tablet PO (10:46)
[2024-05-06] MEDS: cetylpyridinium Lozenge 1 EACH MUCOUS MEM (10:47)
[2024-05-06] MEDS: topiramate 100 mg Tablet PO ×2 (10:47→16:28)
[2024-05-06] MEDS: pantoprazole DR 40 mg Tablet PO (10:47)
[2024-05-06] MEDS: V 40 MG PO (10:47)
[2024-05-06 10:48] LABS: Blood Urea Nitrogen 9 mg/dL (8-23); Calcium 8.4 mg/dL (8.5-10.5); Carbon Dioxide 21 mmol/L (22-29); Chloride 109 mmol/L (98-107); Creatinine Clr Calc Pharmacy 82.4865; Glomerular Filtration Rate 84.2 mL/min (90-130); Glucose 99 mg/dL (65-115); Magnesium 2.2 mg/dL (1.7-2.3); Osmolality Calculated 291 mOsm/kg (285-295); Sodium 141 mmol/L (136-145)
[2024-05-06 11:07] LABS: Vancomycin Trough 10.1 ug/mL (10-15)
[2024-05-06] MEDS: vancomycin 1,000 MG in sodium chloride 0.9% 250 ML 250 MG IV ×2 (11:11→23:11)
--- NOTE | 2024-05-06 11:13 | P.PN_ITS ---
Subjective 2 Subjective: Patient reports she is doing okay. Just underwent bronchoscopy. Shortness of breath is a little bit better. Little bit less chest pain. Still coughing quite a bit. Medications: Reviewed: Yes Vitals/I&O/Wt Last Vital Signs Temp 97.8 F 05/06/24 09:39 Pulse 68 05/06/24 09:39 Resp 16 05/06/24 09:39 BP 99/60 05/06/24 09:39 Pulse Ox 94 05/06/24 09:39 O2 Del Method Room Air 05/06/24 09:39 O2 Flow Rate 6 05/06/24 09:09 05/05/24 05/06/24 05/06/24 22:59 06:59 14:59 Intake Total 2140.000 / 2440.000 50 / 2490.000 50 / 50 Output Total 300 / 1200 900 / 2100 5 / 5 Balance 1840.000 / 1240.000 -850 / 390.000 45 / 45 Weight last 48 hrs Weight 75.387 kg Weight 76.113 kg Weight 67.132 kg Physical Exam 2 Narrative: General exam is a white female no distress Cardiovascular regular rate and rhythm Lungs relatively clear bilaterally. Abdomen is soft, positive bowel sounds. No obvious organomegaly Extremities trace edema. No cyanosis or clubbing Data 05/06/24 10:05 05/06/24 10:05 Micro: Microbiology 05/04/24 16:11 Blood Culture - Preliminary Blood NEGATIVE TO DATE 05/04/24 16:04 Blood Culture - Preliminary Blood NEGATIVE TO DATE A&P Assessment and plan (1) Pneumonia: Patient diagnosed with pneumonia approximately 1 week ago, for which she was placed on Levaquin. She has had persistent symptoms since that time, including fever. She is not significantly improved. Her x-ray, done on April 27 suggested a possible effusion. She has some issues with chronic reflux making aspiration a possibility. She has had previous workup with a PET scan and biopsy for concerns of lung mass on that side which were negative. 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 At this point she has pneumonia, failing outpatient treatment. As there is a possibility of aspiration I will initially treat her with vancomycin and Zosyn. Continue vancomycin and Zosyn at this time Await cultures Appreciate pulmonary consult Secondary to CT findings bronchoscopy was performed today with biopsy Barium swallow demonstrated some significant reflux to thoracic inlet Elevate head of bed 30 degrees Await bronchoscopy findings Possible home tomorrow if improving White blood cell count elevated today, suspect secondary to demargination. As white blood cell count increased we will go ahead and check urinalysis although patient is currently asymptomatic. MRSA PCR pending Plan Multiple other medical problems as outlined in the past medical history Full code currently SCDs for DVT prophylaxis. 1 dose of heparin now. Hold further as biopsy might be for performed tomorrow Attestations 2 Medical Necessity Statement*: Needs continued hospitalization for IV antibiotics secondary to pneumonia. Diagnoses Pneumonia J18.9 Time Spent (min) 25
[2024-05-06 14:33] LABS: Bilirubin Urine Neg (Negative); Blood Urine Neg (Negative); Glucose Urine UA Norm (Normal); Ketones Urine Negative (Negative); Leukocyte Esterase Urine Negative (Negative); Nitrate Urine Negative (Negative); Protein Urine Neg (Negative); Sulfosalicylic Acid Urine Negative (Negative); Urine Appearance Clear (CLEAR); Urine Color Yellow (Yellow); Urobilinogen Urine Norm (Negative); pH Urine 8 (5-7)
[2024-05-06 14:34] LABS: Bacteria Urine TRACE /hpf; RBC Urine RARE /hpf (0-2); Squamous Epithelial Cell Urine RARE /hpf (0-5)
[2024-05-06 15:10] LABS: Methicillin-Resist S.aureu PCR NOT DETECTED (NOT DETECTED)
[2024-05-06] MEDS: trazodone 100 mg Tablet PO (20:22)
[2024-05-06 22:54] LABS: Vancomycin Trough 16.3 ug/mL (10-15)
[2024-05-06] MEDS: cyclobenzaprine 10 mg Tablet PO (23:11)
[2024-05-07] MEDS: piperacillin-tazobactam 3.375 GM in sodium chloride 0.9% (plus) 50 ML IV (00:28)
[2024-05-07] MEDS: HYDROcodone-acetaminophen 10-325 mg Tablet 1 TAB PO (00:28)
[2024-05-07 04:33] VITALS: BP 103/63; PULSE 66; RESP 16; TEMP 37.2; O2SAT 95
[2024-05-07 06:35] LABS: Basophils % 0.2 %; Eosinophils # 0.2 10^3/uL (0.0-0.8); Eosinophils % 1.6 %; Lymphocytes # 1.8 10^3/uL (0.8-4.8); Lymphocytes % 13.2 %; Mean Corpuscular HGB Conc 31.8 g/dL (30-55); Mean Corpuscular Hemoglobin 30.7 pg (27-33); Mean Corpuscular Volume 96.6 fl (85-98); Monocytes # 0.9 10^3/uL (0.2-0.9); Monocytes % 6.6 %; Neutrophils # 10.47 10^3/uL (1.8-7.7); Neutrophils % 77.4 %; Nucleated Red Blood Cells % 0 %; Platelet Count 373 10^3/cmm (157-399); Red Blood Count 3.52 10^6/uL (3.85-5.65); Red Cell Distribution Width 13.4 % (12.1-15.1); White Blood Count 13.52 10^3/uL (3.29-11.43)
[2024-05-07 06:54] LABS: Anion Gap 13.7 (5-19); Blood Urea Nitrogen 11 mg/dL (8-23); Calcium 8.6 mg/dL (8.5-10.5); Carbon Dioxide 19 mmol/L (22-29); Chloride 109 mmol/L (98-107); Creatinine Clr Calc Pharmacy 82.7741; Glomerular Filtration Rate 84.2 mL/min (90-130); Glucose 84 mg/dL (65-115); Osmolality Calculated 285 mOsm/kg (285-295); Potassium 3.7 mmol/L (3.5-5.1); Sodium 138 mmol/L (136-145)
--- NOTE | 2024-05-07 07:39 | PM.DCS ---
Discharge Providers Date of Admission: 05/04/24 14:42 Date of Discharge: May 07, 2024 Attending Provider at Admission: Hien Aguilera MD Attending Provider at Discharge: Beto Aguilera MD Primary Care Provider: Hien Aguilera MD Diagnoses at Discharge Discharge Diagnosis (1) Pneumonia: Status: Acute Reason for Visit Reason for Visit: [facility] Course Hospital Course Marielle is a 63-year-old white female who presented from home with pneumonia failing outpatient treatment. She had persistent fevers despite being on Levaquin for 6 days. She was placed in the hospital on IV vancomycin and Zosyn cultures were obtained and pulmonary consultation obtained. Chest x-ray was abnormal in the right lung with possible effusion. Chest CT demonstrated mass versus pneumonia. Pulmonary performed bronchoscopy on May 06 with biopsies. An upper GI/barium swallow was also performed demonstrating some issues with reflux to the thoracic inlet with the patient laying down. By May 07 she was feeling much better with no fever, and less chest pain. She was less short of breath. She had no complications from her bronchoscopy. It was thought she could go home and continue to follow-up with pulmonary and primary care provider from there, including her pathology and repeat imaging. She will discharge on 7 days of Augmentin secondary to concern of aspiration causing her mass/pneumonia. MRSA PCR was negative in the hospital. She was given an opportunity to ask questions, and agreed with the plan. She will elevate the head of her bed 30 degrees, not eat 4 hours prior to bed, not drink 3 hours prior to bed. Physical Exam Narrative: General exam no distress Neck is supple Cardiovascular regular rate and rhythm Lungs clear Abdomen soft Extremities no cyanosis clubbing edema Discharge Data Studies Completed and Pending Completed Studies During Hospitalization Category Date Time Status CTA chest [CT angio chest PE protcl 73146] Routine Cat Scan 05/04/24 17:55 Completed CXRP [XR chest 1V portable [id number]] Routine Exams 05/06/24 09:04 Completed FL barium swallow [id number] Routine Exams 05/05/24 09:09 Completed XR chest 1V [id number] Routine Exams 05/06/24 08:47 Completed XR chest 1V portable [id number] Stat Exams 05/04/24 15:20 Completed Pending at discharge Category Date Time Status C-arm FL for Bronchoscopy Routine Exams 05/06/24 06:48 Taken Blood Culture Routine Lab 05/04/24 16:11 Results Bronch Washing Culture & GS Routine Lab 05/06/24 08:29 Results Bronchoalv Lavage Culture & GS Routine Lab 05/06/24 07:52 Results Fungal Culture not HR/SK/BL Routine Lab 05/06/24 07:52 Received Tissue Culture and Gram Stain Routine Lab 05/06/24 08:07 Results Cytology [PTH] Routine Pth 05/06/24 08:11 Received Cytology [PTH] Routine Pth 05/06/24 08:30 Received Pathology: Surgical [PTH] Routine Pth 05/06/24 09:03 Received Radiology Impressions Chest CTA 05/04/24 17:55 IMPRESSION: 1. No large central pulmonary emboli.Bolus timing is insufficient for definitive exclusion of small peripheral pulmonary emboli. 2. New large lobulated masslike opacity in the right pulmonary base, concerning for malignancy. Additional right-sided densities as above. Barium Swallow X-Ray 05/05/24 09:09 IMPRESSION: There is mild loss of the primary peristaltic wave of the esophagus with some retention of the barium which cleared with additional swallowing. There was significant reflux in the supine position as above. Chest X-Ray 05/06/24 09:04 IMPRESSION: No significant change. Laboratory Results WBC 13.52 10^3/uL (3.29-11.43) H 05/07/24 04:53 RBC 3.52 10^6/uL (3.85-5.65) L 05/07/24 04:53 Hgb 10.80 g/dL (11.27-16.99) L 05/07/24 04:53 Hct 34.0 % (36-47) L 05/07/24 04:53 MCV 96.6 fl (85-98) 05/07/24 04:53 MCH 30.7 pg (27-33) 05/07/24 04:53 MCHC 31.8 g/dL (30-55) 05/07/24 04:53 RDW 13.4 % (12.1-15.1) 05/07/24 04:53 Plt Count 373 10^3/cmm (157-399) 05/07/24 04:53 MPV 8.0 fL (7.4-10.4) 05/07/24 04:53 Neut % (Auto) 77.4 % 05/07/24 04:53 Lymph % (Auto) 13.2 % 05/07/24 04:53 [place] % (Auto) 6.6 % 05/07/24 04:53 Eos % (Auto) 1.6 % 05/07/24 04:53 Baso % (Auto) 0.2 % 05/07/24 04:53 Neut # (Auto) 10.47 10^3/uL (1.8-7.7) H 05/07/24 04:53 Lymph # (Auto) 1.8 10^3/uL (0.8-4.8) 05/07/24 04:53 [place] # (Auto) 0.9 10^3/uL (0.2-0.9) 05/07/24 04:53 Eos # (Auto) 0.2 10^3/uL (0.0-0.8) 05/07/24 04:53 Baso # (Auto) 0.0 10^3/uL (0.0-0.1) 05/07/24 04:53 Nucleated RBC % (auto) 0 % 05/07/24 04:53 Nucleated RBCs # 0.0 /100WBC 05/07/24 04:53 Sodium 138 mmol/L (136-145) 05/07/24 04:53 Potassium 3.7 mmol/L (3.5-5.1) 05/07/24 04:53 Chloride 109 mmol/L (98-107) H 05/07/24 04:53 Carbon Dioxide 19 mmol/L (22-29) L 05/07/24 04:53 Anion Gap 13.7 (5-19) 05/07/24 04:53 BUN 11 mg/dL (8-23) 05/07/24 04:53 Creatinine 0.7 mg/dL (0.5-0.9) 05/07/24 04:53 GFR Calculation 84.2 mL/min (90-130) L 05/07/24 04:53 Glucose 84 mg/dL (65-115) 05/07/24 04:53 Calculated Osmolality 285 mOsm/kg (285-295) 05/07/24 04:53 Calcium 8.6 mg/dL (8.5-10.5) 05/07/24 04:53 Magnesium 2.2 mg/dL (1.7-2.3) 05/06/24 10:05 Total Bilirubin 0.2 mg/dL (0.15-1.2) 05/04/24 16:04 AST 11 U/L (0-32) 05/04/24 16:04 ALT 8 U/L (0-33) 05/04/24 16:04 Alkaline Phosphatase 104 U/L (35-105) 05/04/24 16:04 Total Protein 6.9 g/dL (6.6-8.7) 05/04/24 16:04 Albumin 2.6 g/dL (3.5-5.2) L 05/04/24 16:04 Globulin 4.3 g/dL (1.3-4.6) 05/04/24 16:04 Procalcitonin 0.09 ng/mL (0-0.5) 05/05/24 04:50 TSH 8.92 uIU/mL (0.27-4.20) H 05/04/24 16:04 Urine Color Yellow (Yellow) 05/06/24 13:47 Urine Appearance Clear (CLEAR) 05/06/24 13:47 Urine pH 8 (5-7) H 05/06/24 13:47 Ur Specific [place] 1.010 (1.005-1.030) 05/06/24 13:47 Urine Protein Neg (Negative) 05/06/24 13:47 Urine Glucose (UA) Norm (Normal) 05/06/24 13:47 Urine Ketones Negative (Negative) 05/06/24 13:47 Urine Blood Neg (Negative) 05/06/24 13:47 Urine Nitrate Negative (Negative) 05/06/24 13:47 Urine Bilirubin Neg (Negative) 05/06/24 13:47 Prot Sulfosalicylic Acd Negative (Negative) 05/06/24 13:47 Urine Urobilinogen Norm mg/dL (Negative) 05/06/24 13:47 Ur Leukocyte Esterase Negative (Negative) 05/06/24 13:47 Urine RBC Rare /hpf (0-2) 05/06/24 13:47 Urine WBC None /hpf (0-5) 05/06/24 13:47 Ur Squamous Epith Cells Rare /hpf (0-5) 05/06/24 13:47 Amorphous Sediment Not Reportable 05/06/24 13:47 Urine Bacteria Trace /hpf (NONE) 05/06/24 13:47 Vancomycin Trough 16.3 ug/mL (10-15) H 05/06/24 22:11 Adenovirus (PCR) Not detected (NOT DETECT) 05/04/24 15:45 C. pneumoniae DNA (PCR) Not detected (NOT DETECT) 05/04/24 15:45 Coronavirus 229E (PCR) Not detected (NOT DETECT) 05/04/24 15:45 Human Metapneumovir PCR Not detected (NOT DETECT) 05/04/24 15:45 Influenza A (H1) PCR Not detected (NOT DETECT) 05/04/24 15:45 Influ A (H1/09) PCR Not detected (NOT DETECT) 05/04/24 15:45 Influenza A (H3) PCR Not detected (NOT DETECT) 05/04/24 15:45 Influenza Type A (PCR) Not detected (NOT DETECT) 05/04/24 15:45 Influenza Type B (PCR) Not detected (NOT DETECT) 05/04/24 15:45 M. pneumoniae (PCR) Not detected (NOT DETECT) 05/04/24 15:45 Parainfluenza 1 (PCR) Not detected (NOT DETECT) 05/04/24 15:45 Parainfluenza 2 (PCR) Not detected (NOT DETECT) 05/04/24 15:45 Parainfluenza 3 (PCR) Not detected (NOT DETECT) 05/04/24 15:45 Parainfluenza 4 (PCR) Not detected (NOT DETECT) 05/04/24 15:45 RSV Type A (PCR) Not detected (NOT DETECT) 05/04/24 15:45 RSV Type B (PCR) Not detected (NOT DETECT) 05/04/24 15:45 Entero/Rhino (PCR) Not detected (NOT DETECT) 05/04/24 15:45 SARS-CoV-2 (PCR) Not detected (NOT DETECT) 05/04/24 15:45 MRSA (PCR) Not detected (NOT DETECTED) 05/04/24 16:15 Vitals Last Vital Signs Temp 98.9 F 05/07/24 04:33 Pulse 66 05/07/24 04:33 Resp 16 05/07/24 04:33 BP 103/63 05/07/24 04:33 Pulse Ox 95 05/07/24 04:33 O2 Del Method Room Air 05/07/24 04:33 O2 Flow Rate 6 05/06/24 09:09 Discharge Plan Discharge Patient Disposition: Home Condition: Stable Prescriptions: New amoxicillin-pot clavulanate 875-125 mg tablet 1 tab PO BID Qty: 14 0RF benzonatate 100 mg Capsule 200 mg PO TID PRN (Reason: Cough) Qty: 30 0RF Continued lovastatin 40 mg tablet 40 mg PO DAILY topiramate [Topamax] 100 mg tablet 100 mg PO BID meloxicam 15 mg tablet 15 mg PO DAILY Prempro 0.3-1.5 mg tablet 1 tab PO DAILY alprazolam 0.5 mg tablet 0.5 mg PO Q6H PRN (Reason: Anxiety) cyclobenzaprine 10 mg tablet 10 mg PO DAILY PRN (Reason: Pain (Scale Score 1-3)) oxycodone 5 mg tablet 5 mg PO Q6H PRN (Reason: Pain) hydrocodone-acetaminophen 10-325 mg tablet 1 tab PO Q8H PRN (Reason: Pain) furosemide 20 mg tablet 20 mg PO DAILY PRN (Reason: Edema) potassium chloride 10 mEq tablet extended release 10 meq PO PRN trazodone 50 mg tablet 100 mg PO DAILY nitroglycerin 0.4 mg tablet, sublingual 0.4 mg sublingual PRN PRN (Reason: Chest Pain) ondansetron 4 mg tablet,disintegrating 4 mg PO Q8H PRN (Reason: Nausea) pantoprazole [Protonix] 40 mg tablet,delayed release (DR/EC) 40 mg PO DAILY levothyroxine 137 mcg Tablet 137 mcg PO DAILY Discharge Orders: Discharge Order (Routine); Ordered 05/07/24 Ordered By: Beto Aguilera Referrals: Hien Aguilera MD [Primary Care Provider] - 4-7 days (Consider PET scan in approximately 2 weeks following treatment of pneumonia) Discharge Diet: Usual diet Discharge Activity: Increase activity as tolerated Patient Instructions: Opioid Safety Activity Restrictions/Additional Instructions: No medicines prescribed Follow-up with your primary care provider in 3 to 5 days, they will direct follow-up regarding lung under guidance of pulmonary Head of bed elevation at 30 degrees No liquids 3 hours prior to bed, no food 4 hours prior to bed. Pulmonary your primary care provider will follow-up in your pathology reports. Please discuss this with them on follow-up. Discharge Attestations Time Spent in Discharge Care*: greater than 30 min Quality Metrics Clinical Quality Measures [ No reported AMI, CVA or VTE this stay] Coding Level of Care Code 90676 Total time (in minutes) for Discharge: 46 Diagnoses Pneumonia J18.9
[2024-05-07 07:55] VITALS: BP 111/69; PULSE 76; RESP 14; TEMP 36.8; O2SAT 97
[2024-05-07] MEDS: V 40 MG PO (08:31)
[2024-05-07] MEDS: pantoprazole DR 40 mg Tablet PO (08:31)
[2024-05-07] MEDS: topiramate 100 mg Tablet PO (08:31)
[2024-05-07] MEDS: levothyroxine 137 mcg Tablet PO (08:31)
--- NOTE | 2024-05-07 08:31 | P.PN_ITS ---
Subjective 2 Subjective: No acute events overnight Reported slight improvement in shortness of breath and right-sided pleuritic chest pain WBC trending down; low procalcitonin She is on room air and is ready to be discharged. She will get Augmentin for 7 days She is aware that I am going to call her with her pathology results Medications: Reviewed: Yes Vitals/I&O/Wt Last Vital Signs Temp 98.3 F 05/07/24 07:55 Pulse 76 05/07/24 07:55 Resp 14 05/07/24 07:55 BP 111/69 05/07/24 07:55 Pulse Ox 97 05/07/24 07:55 O2 Del Method Room Air 05/07/24 07:55 O2 Flow Rate 6 05/06/24 09:09 05/06/24 05/07/24 05/07/24 22:59 06:59 14:59 Intake Total 620 / 1160 420 / 1580 Output Total 1600 / 1605 Balance -980 / -445 420 / -25 Weight last 48 hrs Weight 167 lb 7 oz Weight 166 lb 3.2 oz Physical Exam 2 Narrative: General: alert, NAD HEENT: conj clear, EOMI, PERRL, mmm, Neck: supple, no meningismus Heme: no cervical LAP Respiratory: Inspection: No visible deformity of the chest wall Palpation: Trachea is mildly deviated to the right, bilateral symmetric expansion Percussion: Bilateral tympanic percussion note both anterior and posteriorly Auscultation: Mild crepitation on right lower lung zone otherwise clear Cardiovascular: rrr, nl s1s2, no mrg Abdomen: soft, nt, nd, no r/g, bs+ Extremities: pulses +, no edema, no c/c : no CVA tenderness Skin: intact, no rash MSK: no back or neck pain Neurologic: grossly intact Data 05/07/24 04:53 05/07/24 04:53 Other Labs: Radiology Impressions Chest CTA 05/04/24 17:55 IMPRESSION: 1. No large central pulmonary emboli.Bolus timing is insufficient for definitive exclusion of small peripheral pulmonary emboli. 2. New large lobulated masslike opacity in the right pulmonary base, concerning for malignancy. Additional right-sided densities as above. Barium Swallow X-Ray 05/05/24 09:09 IMPRESSION: There is mild loss of the primary peristaltic wave of the esophagus with some retention of the barium which cleared with additional swallowing. There was significant reflux in the supine position as above. C-Arm Fluoroscopy 05/06/24 06:48 IMPRESSION: Post bronchoscopy biopsy with no complication identified. Chest X-Ray 05/06/24 09:04 IMPRESSION: No significant change. Laboratory Results WBC 13.52 10^3/uL (3.29-11.43) H 05/07/24 04:53 RBC 3.52 10^6/uL (3.85-5.65) L 05/07/24 04:53 Hgb 10.80 g/dL (11.27-16.99) L 05/07/24 04:53 Hct 34.0 % (36-47) L 05/07/24 04:53 MCV 96.6 fl (85-98) 05/07/24 04:53 MCH 30.7 pg (27-33) 05/07/24 04:53 MCHC 31.8 g/dL (30-55) 05/07/24 04:53 RDW 13.4 % (12.1-15.1) 05/07/24 04:53 Plt Count 373 10^3/cmm (157-399) 05/07/24 04:53 MPV 8.0 fL (7.4-10.4) 05/07/24 04:53 Neut % (Auto) 77.4 % 05/07/24 04:53 Lymph % (Auto) 13.2 % 05/07/24 04:53 [place] % (Auto) 6.6 % 05/07/24 04:53 Eos % (Auto) 1.6 % 05/07/24 04:53 Baso % (Auto) 0.2 % 05/07/24 04:53 Neut # (Auto) 10.47 10^3/uL (1.8-7.7) H 05/07/24 04:53 Lymph # (Auto) 1.8 10^3/uL (0.8-4.8) 05/07/24 04:53 [place] # (Auto) 0.9 10^3/uL (0.2-0.9) 05/07/24 04:53 Eos # (Auto) 0.2 10^3/uL (0.0-0.8) 05/07/24 04:53 Baso # (Auto) 0.0 10^3/uL (0.0-0.1) 05/07/24 04:53 Nucleated RBC % (auto) 0 % 05/07/24 04:53 Nucleated RBCs # 0.0 /100WBC 05/07/24 04:53 Sodium 138 mmol/L (136-145) 05/07/24 04:53 Potassium 3.7 mmol/L (3.5-5.1) 05/07/24 04:53 Chloride 109 mmol/L (98-107) H 05/07/24 04:53 Carbon Dioxide 19 mmol/L (22-29) L 05/07/24 04:53 Anion Gap 13.7 (5-19) 05/07/24 04:53 BUN 11 mg/dL (8-23) 05/07/24 04:53 Creatinine 0.7 mg/dL (0.5-0.9) 05/07/24 04:53 GFR Calculation 84.2 mL/min (90-130) L 05/07/24 04:53 Glucose 84 mg/dL (65-115) 05/07/24 04:53 Calculated Osmolality 285 mOsm/kg (285-295) 05/07/24 04:53 Calcium 8.6 mg/dL (8.5-10.5) 05/07/24 04:53 Magnesium 2.2 mg/dL (1.7-2.3) 05/06/24 10:05 Total Bilirubin 0.2 mg/dL (0.15-1.2) 05/04/24 16:04 AST 11 U/L (0-32) 05/04/24 16:04 ALT 8 U/L (0-33) 05/04/24 16:04 Alkaline Phosphatase 104 U/L (35-105) 05/04/24 16:04 Total Protein 6.9 g/dL (6.6-8.7) 05/04/24 16:04 Albumin 2.6 g/dL (3.5-5.2) L 05/04/24 16:04 Globulin 4.3 g/dL (1.3-4.6) 05/04/24 16:04 Procalcitonin 0.09 ng/mL (0-0.5) 05/05/24 04:50 TSH 8.92 uIU/mL (0.27-4.20) H 05/04/24 16:04 Urine Color Yellow (Yellow) 05/06/24 13:47 Urine Appearance Clear (CLEAR) 05/06/24 13:47 Urine pH 8 (5-7) H 05/06/24 13:47 Ur Specific [place] 1.010 (1.005-1.030) 05/06/24 13:47 Urine Protein Neg (Negative) 05/06/24 13:47 Urine Glucose (UA) Norm (Normal) 05/06/24 13:47 Urine Ketones Negative (Negative) 05/06/24 13:47 Urine Blood Neg (Negative) 05/06/24 13:47 Urine Nitrate Negative (Negative) 05/06/24 13:47 Urine Bilirubin Neg (Negative) 05/06/24 13:47 Prot Sulfosalicylic Acd Negative (Negative) 05/06/24 13:47 Urine Urobilinogen Norm mg/dL (Negative) 05/06/24 13:47 Ur Leukocyte Esterase Negative (Negative) 05/06/24 13:47 Urine RBC Rare /hpf (0-2) 05/06/24 13:47 Urine WBC None /hpf (0-5) 05/06/24 13:47 Ur Squamous Epith Cells Rare /hpf (0-5) 05/06/24 13:47 Amorphous Sediment Not Reportable 05/06/24 13:47 Urine Bacteria Trace /hpf (NONE) 05/06/24 13:47 Vancomycin Trough 16.3 ug/mL (10-15) H 05/06/24 22:11 Adenovirus (PCR) Not detected (NOT DETECT) 05/04/24 15:45 C. pneumoniae DNA (PCR) Not detected (NOT DETECT) 05/04/24 15:45 Coronavirus 229E (PCR) Not detected (NOT DETECT) 05/04/24 15:45 Human Metapneumovir PCR Not detected (NOT DETECT) 05/04/24 15:45 Influenza A (H1) PCR Not detected (NOT DETECT) 05/04/24 15:45 Influ A (H1/09) PCR Not detected (NOT DETECT) 05/04/24 15:45 Influenza A (H3) PCR Not detected (NOT DETECT) 05/04/24 15:45 Influenza Type A (PCR) Not detected (NOT DETECT) 05/04/24 15:45 Influenza Type B (PCR) Not detected (NOT DETECT) 05/04/24 15:45 M. pneumoniae (PCR) Not detected (NOT DETECT) 05/04/24 15:45 Parainfluenza 1 (PCR) Not detected (NOT DETECT) 05/04/24 15:45 Parainfluenza 2 (PCR) Not detected (NOT DETECT) 05/04/24 15:45 Parainfluenza 3 (PCR) Not detected (NOT DETECT) 05/04/24 15:45 Parainfluenza 4 (PCR) Not detected (NOT DETECT) 05/04/24 15:45 RSV Type A (PCR) Not detected (NOT DETECT) 05/04/24 15:45 RSV Type B (PCR) Not detected (NOT DETECT) 05/04/24 15:45 Entero/Rhino (PCR) Not detected (NOT DETECT) 05/04/24 15:45 SARS-CoV-2 (PCR) Not detected (NOT DETECT) 05/04/24 15:45 MRSA (PCR) Not detected (NOT DETECTED) 05/04/24 16:15 Micro: Microbiology 05/06/24 08:07 Gram Stain - Final Lung - Right Lower Lobe 05/06/24 07:52 Gram Stain - Final Lung Right Lower Lobe 05/06/24 08:29 Gram Stain - Final Lung Right Lower Lobe A&P Assessment and plan (1) Right lower lobe consolidation: Patient presenting with fever, productive cough, leukocytosis with left shift- suspect pneumonia-she is covered with vancomycin and Zosyn Respiratory viral panel negative; bacterial antigens negative; Legionella urine antigen negative; MRSA nares pending; blood cultures pending; sent for procalcitonin CTA ruled out pulmonary embolism; reported new large lobulated masslike opacity in the right anterior basal segment extending to diaphragmatic pleural surface. Reported as concerning for malignancy; 4 months ago patient had a PET CT scan January 2024-which did not show any PET active lesions; it showed resolved superior segment right lower lobe consolidation. However there was mild residual opacities seen right lower lobe in place of prior consolidation with low-grade uptake less than 2 SUV suggestive of benign finding. Patient is non-smoker and with negative PET/CT and resolution of right lower lobe pneumonia in January 2024-doubtful if this is malignancy On 05/06/2024-she underwent bronchoscopic evaluation with clearance advair's; navigational bronchoscopy guided biopsies of anterior segment of right lower lobe mass as well as lesion in superior segment of right lower lobe. She also had endobronchial ultrasound-guided biopsies of station 7 and 12 R. BAL from both segments was sent for bacterial cultures, fungal cultures, cytology Clinically she is on room air, with somewhat improvement in her shortness of breath and right-sided pleuritic chest pain-she will be discharged with 7 days of Augmentin Attestations 2 Medical Necessity Statement*: Patient is ready for discharge Time Spent in Patient Care: Greater than 35 minutes (>than 50% of time spent in counselling and/or direct pt care on unit) . Coding Level of Care Code Acute Code for Chg Fwd Diagnoses Right lower lobe consolidation J18.1 Time Spent (min) 32
[2024-05-07 08:40] VITALS: BP 111/69; PULSE 76; RESP 14; TEMP 36.8; O2SAT 97
--- NOTE | 2024-05-07 08:42 | PC.NURSE ---
Discharge instructions provided to pt and her . NO questions or concerns at this time.
== END 2024-05-07 09:00 | disposition home or self-care (01) | DRG 168 ==
PROVIDERS: Internal Medicine Pulmonary Disease; Admitting Provider Family Medicine; PCP Family Medicine; Visit Provider Internal Medicine
PROC: 0BJ08ZZ Inspection of Tracheobronchial Tree, Via Natural or Artificial Opening Endoscopic (ICD-10-PCS; CPT 31622; principal; 2024-05-06 07:00)
PROC: BB4BZZZ Ultrasonography of Pleura (ICD-10-PCS; 2024-05-06 07:00)
DX: J18.9 Pneumonia, unspecified organism (principal); R91.8 Other nonspecific abnormal finding of lung field; E03.9 Hypothyroidism, unspecified; E78.5 Hyperlipidemia, unspecified; G89.29 Other chronic pain; M54.9 Dorsalgia, unspecified; K21.9 Gastro-esophageal reflux disease without esophagitis; M19.90 Unspecified osteoarthritis, unspecified site
CPT/HCPCS: 36415; 71045; 71275; 74220; 76000; 80048; 80053; 80202; 81001; 83735; 84145; 84443; 85025; 87040; 87070; 87102; 87176; 87205; 87206; 87449; 87486; 87581; 87633; 87641; 88112; 88305; 92610; 96372; J1100; J1644; J2405; J2543; J2704; J2710; J3010; J3370; J3490; J7030; J7050; Q9967

== ENCOUNTER 2024-06-25 11:49 | Outpatient (CLI) | payer OTHER, SELFPAY ==
--- NOTE | 2024-06-25 11:55 | CT_ITS ---
WS: [id number] CT CHEST TECHNIQUE: Noncontrast CT of the chest with coronal and sagittal reformatted images. CLINICAL INFORMATION: PNEUMONIA FOLLOW UP COMPARISON: CT 05/04/2024 DLP: 226.[address] scans at [facility] use at least one of these dose optimization techniques: automated e xposure control; mA and/or kV adjustment per patient size (includes targeted exams where dose is matc hed to clinical indication); or iterative reconstruction. FINDINGS:Masslike opacity in the RIGHT lower lobe along the diaphragm has improved compatible with im proving pneumonia with a small amount of residual subsegmental atelectasis and pleural thickening jasvir ng the fissure. Hazy opacities in the RIGHT upper lobe have improved. Postoperative changes RIGHT milan g. Persistent spiculated lesion in the RIGHT middle lobe measuring 9 mm is unchanged. Neoplasm is not ex cluded. Consider Recommend further evaluation with PET/CT. . Normal caliber thoracic aorta. Mild aortic calcification. Coronary calcification. No axillary lymphad enopathy. No mediastinal or hilar lymphadenopathy. Cholecystectomy clips. Postoperative changes stoma ch. Small esophageal hiatal hernia. Air-fluid level in the distal esophagus. Moderate thoracic kyphos is. CT/CT chest wo con [id number] IMPRESSION: 1. Consolidative mass RIGHT lower lobe adjacent to the diaphragm has improved and nearly resolved compared to previous compatible with resolving pneumonia. 2. Spiculated 9 mm opacity RIGHT middle lobe is unchanged. Neoplasm not exclud ed. Consider further evaluation with PET/CT. This is similar in appearance to t he prior PET/CT 01/13/2024 3. No mediastinal or hilar lymphadenopathy. 4. Prior cholecystectomy and postoperative changes gastric bypass.
== END 2024-06-25 11:50 | disposition home or self-care (01) ==
LOC: RAD 11:50
PROVIDERS: PCP Family Medicine; Visit Provider Family Medicine
DX: J18.9 Pneumonia, unspecified organism (principal); R91.1 Solitary pulmonary nodule; Z90.49 Acquired absence of other specified parts of digestive tract; Z98.84 Bariatric surgery status
CPT/HCPCS: 71250

== ENCOUNTER 2024-08-10 10:34 | Outpatient (CLI) | payer OTHER, SELFPAY ==
--- NOTE | 2024-08-10 14:37 | PETR_ITS ---
PROCEDURE INFORMATION: Exam: PET/CT Skull Base to Mid-thigh Exam date and time: 08/10/2024 11:30 AM Age: 63 years old Clinical indication: Condition or disease; Condition/disease: Pulmonary nodules; Prior surgery; Surgery date: 6+ months; Surgery type: Benign right lung mass 1999; Additional info: Pulmonary nodule LABS AND CLINICAL REPORTS: Glucose: 100 mg/dl Treatment strategy for malignancy (PET staging): Initial Staging (PI) TECHNIQUE: Imaging protocol: Following at least four-hour fasting and following the injection of radiopharmaceutical, low dose CT images were obtained. Then, PET images were obtained. Attenuation corrected images were constructed using the CT scan. Fused images of PET and CT were reviewed. The standardized uptake values (SUV) reported below are maximum values within a region of interest, expressed in gm/ml. Exam includes orbital meatal line to mid-thigh. Radiopharmaceutical: 11 mCi F-18 FDG (Fluorodeoxyglucose), IV. Time of imaging post radiopharmaceutical administration: 1 hour Injection site: Left hand COMPARISON: CT chest 06/25/2024, CTA chest 05/04/2024, PT PET skull to thigh INIT [id number] 01/13/2024 9:50 AM FINDINGS: Brain: Visualized brain has normal physiologic uptake. Pharynx: No abnormal uptake. Larynx: No abnormal uptake. Lungs, pleura and trachea: A spiculated solid posterior superior segment right lower lobe nodule in series 202, image 249 measuring 1.1 x 0.9 cm is noted, SUV max 1.5. This nodule is similar in size compared with 06/25/2024 (previously described as being within the right middle lobe). It measured approximately 1.4 x 0.9 cm on the prior PET-CT (comparison of measurements of the nodule is limited by different slice thickness acquired on the current and prior examination) with a previous SUV max 1.7. Mild thickening of the pleura in the region of the major fissure and lateral right lower lobe on the right is similar to the prior examinations, demonstrating mildly elevated uptake, SUV max 2.4 (previously 2.0) in the lateral right lower lobe pleural surface at the junction with the fissure on series 202, image 220. Right lung calcified granulomas are identified. Mild bilateral scattered bullous changes are noted within the lungs. No consolidation. Heart: Normal physiologic uptake. Mediastinal space: No abnormal uptake. Liver: No abnormal uptake. Gallbladder and biliary ducts: No abnormal uptake. Cholecystectomy clips are present. Pancreas: No abnormal uptake. Spleen: No abnormal uptake. Adrenal glands: No abnormal uptake. Kidneys and ureters: Normal physiologic uptake. A low-density rounded structure arising from the right kidney likely represents a benign cyst. Stomach and bowel: Diffusely elevated uptake in the stomach is noted, SUV max 7.2 (previously 5.7) on image 200. Assessment of the wall is limited by nondistention. No definite gastric wall thickening. There are surgical clips in the region of the proximal gastric wall. Postoperative surgical staple lines are noted within small bowel loops in the left abdomen. Uptake within large and small bowel loops appears physiologic. Vasculature: No abnormal uptake. There are diffuse atherosclerotic changes. Lymph nodes: No abnormal uptake. No lymphadenopathy in the head, neck, chest, abdomen, pelvis, and extremities. Benign-appearing non radiotracer avid small calcified mediastinal and right hilar lymph nodes are present. Skeleton: No abnormal uptake in the visualized axial and appendicular skeleton. Degenerative changes in the spine are noted. Postoperative changes of anterior metallic fusion at L4-L5 with prosthetic disc placement is noted. Small foci of sclerotic density in the right ischium are not radiotracer avid, likely related to benign bone islands. Soft tissues: An ovoid region of soft tissue density with central fat density in the anterior proximal left thigh subcutaneous fat similar in size compared to the prior PET-CT and measures 1.4 x 0.6 cm on image 71, SUV max 3.6 (previously 1.4). METRICS: Mediastinal blood pool: SUV max 2.5, SUV mean 2.2. PET/PET skull to thigh SUBS [id number] IMPRESSION: 1. There has been a probable slight decrease in size of a solid nodule in the superior segment of the right lower lobe compared with the prior PET-CT, similar in size compared with 06/25/2024. This nodule demonstrates decreasing low-level uptake suggestive of a benign etiology. Assessment of small nodules can be limited by PET-CT. Consider continued three to six-month follow-up CT for further surveillance. 2. Similar pleural thickening involving the major fissure and the adjacent lateral pleural surface of the right lower lobe. Low-level uptake in this region favoring a benign inflammatory or infectious etiology has slightly increased compared with the prior PET-CT. 3. Diffuse uptake in the stomach has slightly increased. This may be physiologic or related to inflammatory changes/gastritis. A malignant etiology is not favored. 4. An ovoid focus of soft tissue density with central fat density in the subcutaneous fat of the anterior left thigh demonstrates new mild uptake. A benign inflammatory etiology is favored. A malignant etiology is less likely. 5. Additional nonurgent findings as detailed above.
== END 2024-08-10 10:35 | disposition home or self-care (01) ==
PROVIDERS: PCP Family Medicine; Visit Provider Family Medicine
DX: R91.8 Other nonspecific abnormal finding of lung field (principal); J84.10 Pulmonary fibrosis, unspecified; N28.1 Cyst of kidney, acquired; R93.3 Abnormal findings on diagnostic imaging of other parts of digestive tract; M43.26 Fusion of spine, lumbar region; R93.89 Abnormal findings on diagnostic imaging of other specified body structures; Z90.2 Acquired absence of lung [part of]; Z90.49 Acquired absence of other specified parts of digestive tract
CPT/HCPCS: 78815; A9552

== ENCOUNTER 2024-11-05 12:27 | Outpatient (CLI) | payer MEDICARE, OTHER, SELFPAY ==
--- NOTE | 2024-11-05 12:29 | CT_ITS ---
WS: [email or web address] CT chest wo con [id number] HISTORY: ABNORMAL FINDINGS ON DIAGNOSTIC IMAGING/PULMONARY NODULE TECHNIQUE: Axial imaging performed through the thorax. Coronal and sagittal reformats are submitted. All CT scans at [facility] use at least one of these dose optimization techniques: automated exposure control; mA and/or kV adjustment per patient size (includes targeted exams where dose is mat ched to clinical indication); or iterative reconstruction. CONTRAST: None DLP: 222.87 mGy.cm COMPARISON: Chest CT 06/25/2024, 05/04/2024, 11/14/2023, PET/CT 08/10/2024 Lungs and central airway: Volume loss and postsurgical changes in the RIGHT upper lobe. Pleural thick ening along the RIGHT pleural fissure. Band of surgical sutures reidentified in the central RIGHT milan g. Reidentified is the irregular shaped nodule measuring 8 x 5 mm in the RIGHT lower lobe. PET/CT santiago cribed most likely benign nodule. New groundglass attenuation LEFT upper lobe following the fissure a nd extending into the lingula. Pleura: Thickening along the RIGHT pleural fissures. Heart and pericardium: Normal size heart with no pericardial effusion. Mediastinum and erika: No mediastinum or hilar adenopathy. Vessels: Mild atherosclerosis aorta. Chest wall and lower neck: No soft tissue masses. Upper abdomen: Small hiatal hernia. Postsurgical changes near the GE junction may be from a prior gas tric bypass. No adrenal mass. Osseous structures: Increase in thoracic kyphosis. No destructive bone lesions. CT/CT chest wo con [id number] IMPRESSION: 1. Partial lobectomy RIGHT upper lobe. Volume loss and scarring in the RIGHT u pper thorax is stable. 2. RIGHT lower lobe irregular nodule measures 8 x 5 mm. No increase in size. N egative on prior PET/CT. 3. No mediastinal or hilar adenopathy. 4. New groundglass attenuation LEFT upper lobe near the fissure and lingula. C onsider pneumonitis and hypersensitivity pneumonia.
== END 2024-11-05 12:28 | disposition home or self-care (01) ==
LOC: RAD 12:28
PROVIDERS: PCP Family Medicine; Visit Provider Internal Medicine
DX: R91.1 Solitary pulmonary nodule (principal); Z68.27 Body mass index [BMI] 27.0-27.9, adult; R93.89 Abnormal findings on diagnostic imaging of other specified body structures; R91.8 Other nonspecific abnormal finding of lung field; K44.9 Diaphragmatic hernia without obstruction or gangrene; M40.204 Unspecified kyphosis, thoracic region
CPT/HCPCS: 71250

== ENCOUNTER 2025-02-04 11:41 | Outpatient (CLI) | payer MEDICARE, SELFPAY ==
--- NOTE | 2025-02-04 11:45 | CTR_ITS ---
PROCEDURE INFORMATION: Exam: CT Chest Without Contrast; Diagnostic Exam date and time: 02/04/2025 11:48 AM Age: 64 years old Clinical indication: Condition or disease; Lung condition and disease; Pulmonary nodule, solitary; Prior surgery; Surgery date: 6+ months; Surgery type: Right lung benign tumor 1999; Additional info: Solitary pulmonary nodule/abnormal findings TECHNIQUE: Imaging protocol: Diagnostic computed tomography of the chest without contrast. Radiation optimization: All CT scans at this facility use at least one of these dose optimization techniques: automated exposure control; mA and/or kV adjustment per patient size (includes targeted exams where dose is matched to clinical indication); or iterative reconstruction. COMPARISON: CT chest wo con [id number] 11/05/2024 12:45 PM RADIATION DOSE METRICS: Total DLP (mGy-cm): 287.18 FINDINGS: Lungs: There is a 1.8 cm diameter spiculated nodularity lying within the superior aspect of the right lower lobe. There is patchy fibrosis noted throughout this area along with linear lung sutures. A 3 mm calcified granuloma is noted in the right lung apex. I see no other lung nodule or infiltrate. Pleural spaces: Unremarkable. No pneumothorax. No pleural effusion. Heart: Unremarkable. No cardiomegaly. No pericardial effusion. Coronary arteries: Coronary artery calcifications are noted. Lymph nodes: Unremarkable. No enlarged lymph nodes. Vasculature: Unremarkable. No aortic aneurysm. Bones/joints: Unremarkable. No acute fracture. Soft tissues: Unremarkable. CT/CT chest wo con [id number] IMPRESSION: Stable right lung nodule and surgical changes
== END 2025-02-04 11:42 | disposition home or self-care (01) ==
LOC: RAD 11:42
PROVIDERS: PCP Family Medicine; Visit Provider Internal Medicine
DX: R91.1 Solitary pulmonary nodule (principal); R93.89 Abnormal findings on diagnostic imaging of other specified body structures; Z68.27 Body mass index [BMI] 27.0-27.9, adult; J18.9 Pneumonia, unspecified organism; Z71.85 Encounter for immunization safety counseling; J84.10 Pulmonary fibrosis, unspecified; I25.10 Atherosclerotic heart disease of native coronary artery without angina pectoris
CPT/HCPCS: 71250

== ENCOUNTER 2025-03-22 14:16 | Outpatient (CLI) | payer MEDICARE, OTHER, SELFPAY ==
--- NOTE | 2025-03-22 14:25 | MR_ITS ---
WS: [id number] MRI LUMBAR SPINE WITH AND WITHOUT CONTRAST HISTORY: POSTLAMINECTOMY SYNDROME COMPARISON: 06/25/2022 TECHNIQUE: Sagittal and axial multisequence imaging is submitted. Postcontrast imaging 15 mL MultiHance. Mild increase in thoracic kyphosis. No cord compression. Normal posterior lumbar alignment. Mild disc desiccation. Anterior lumbar fusion hardware at L4-5 is new since 06/25/2022. Interbody disc spacer is noted at L4-5. Conus terminates normally at L1-2 disc level. L1-L2: Normal. L2-L3: Mild annular disc bulging with ligamentum flavum and facet arthritis. Mild bilateral subarticular recess and foraminal narrowing. Similar to the prior study. L3-L4: Moderate annular disc bulging encroaching upon the ventral thecal sac and subarticular recesses. Mild osteophytic ridging. There is impingement upon the RIGHT subarticular recess and traversing RIGHT L4 nerve root. Small RIGHT foraminal disc protrusion is reidentified. Mild central, bilateral subarticular recess and bilateral foraminal narrowing. Bilateral foraminal narrowing has progressed since the prior study. L4-L5: Mild annular disc bulging slightly asymmetric to the RIGHT. LEFT hemilaminectomy defect. Patulous thecal sac with peripheral clustering of the nerve roots. Mild osteophytic ridging. Moderate LEFT and mild RIGHT foraminal stenosis. L5-S1: Osteophytic ridging and annular disc bulging. Mild encroachment upon the LEFT S1 nerve root. Bilateral facet arthritis. Mild foraminal stenosis. Paravertebral soft tissues are negative. No discitis or osteomyelitis. RIGHT renal cyst. MR/MR lumbar spine wo/w con [id number] IMPRESSION: 1. Status post anterior lumbar fusion at L4-5 with interbody spacer since 06/25. 2. No discitis or osteomyelitis. 3. L2-3: Mild bilateral subarticular recess and foraminal narrowing. No change . 4. L3-4: Disc osteophyte impinging upon the RIGHT subarticular recess and young ersing RIGHT L4 nerve root. Small RIGHT foraminal disc protrusion. Mild bilater al foraminal stenosis has progressed since the prior study. 5. L4-5: RIGHT hemilaminectomy defect. Moderate LEFT and mild RIGHT foraminal stenosis. 6. L5-S1: Mild disc encroachment upon the LEFT S1 nerve root. Mild bilateral f oraminal stenosis.
[2025-03-22] MEDS: gadobenate dimeglumine 20 mL vial IV (15:09)
== END 2025-03-22 14:17 | disposition home or self-care (01) ==
LOC: RAD 14:18
PROVIDERS: PCP Family Medicine; Visit Provider Nurse Practitioner
DX: M96.1 Postlaminectomy syndrome, not elsewhere classified (principal); Z98.1 Arthrodesis status; M48.061 Spinal stenosis, lumbar region without neurogenic claudication; M25.78 Osteophyte, vertebrae; M51.26 Other intervertebral disc displacement, lumbar region; M96.89 Other intraoperative and postprocedural complications and disorders of the musculoskeletal system; M48.07 Spinal stenosis, lumbosacral region; M51.369 Other intervertebral disc degeneration, lumbar region without mention of lumbar back pain or lower extremity pain; M24.28 Disorder of ligament, vertebrae; M47.896 Other spondylosis, lumbar region; M51.379 Other intervertebral disc degeneration, lumbosacral region without mention of lumbar back pain or lower extremity pain; M47.897 Other spondylosis, lumbosacral region; N28.1 Cyst of kidney, acquired
CPT/HCPCS: 72158

== ENCOUNTER 2025-06-02 10:44 | Outpatient (CLI) | payer MEDICARE, OTHER, SELFPAY ==
--- NOTE | 2025-06-02 | MM_ITS ---
WS: [id number] BILATERAL SCREENING DIGITAL TOMOSYNTHESIS MAMMOGRAM WITH CAD HISTORY: ANNUAL SCREENING COMPARISON: 08/11/2023, 06/21/2022 Bilateral CC and MLO views with tomosynthesis and synthetic mammography submitted. Computer aided detection analyzed. Breast composition: The breasts are almost entirely fatty. No suspicious masses, microcalcifications or architectural distortion. Benign calcifications LEFT breast. MM/MM scr BI tomosynthesis [id number] IMPRESSION: BI-RADS: 2 - Benign. FOLLOW UP: 1 Year Follow-up
== END 2025-06-02 10:45 | disposition home or self-care (01) ==
LOC: RAD 10:45
PROVIDERS: PCP Nurse Practitioner Family; Visit Provider Nurse Practitioner Family
DX: Z12.31 Encounter for screening mammogram for malignant neoplasm of breast (principal); R92.313 Mammographic fatty tissue density, bilateral breasts; R92.1 Mammographic calcification found on diagnostic imaging of breast
CPT/HCPCS: 77063; 77067

== ENCOUNTER 2025-07-25 16:59 | Outpatient (CLI) | payer MEDICARE, OTHER, SELFPAY ==
--- NOTE | 2025-07-25 17:06 | CT_ITS ---
WS: [email or web address] CT chest wo con [id number] HISTORY: SOLITARY PULMONARY NODULE TECHNIQUE: Axial imaging performed through the thorax. Coronal and sagittal reformats are submitted. All CT scans at [facility] use at least one of these dose optimization techniques: automated exposure control; mA and/or kV adjustment per patient size (includes targeted exams where dose is matched to clinical indication); or iterative reconstruction. CONTRAST: None DLP: 230.69 mGy.cm COMPARISON: 02/04/2025, 11/05/2024, 11/14/2023 and 10/22/2006. Lungs and central airway: Reidentified is the irregular nodule superior segment RIGHT lower lobe measuring 7 x 11 x 9 mm which is unchanged in size. RIGHT pleural thickening and volume loss and fibrosis and groundglass attenuation is unchanged. There is no developing nodule or mass. Additional subsegmental atelectasis in the lingula. Pleura: Normal. No pleural effusion. Heart and pericardium: Normal size heart with no pericardial effusion. Mediastinum and erika: No enlarging lymph nodes. Similar lymph nodes in the mediastinum contain calcification. Vessels: Mild atherosclerosis aorta. Normal size pulmonary artery. Chest wall and lower neck: No soft tissue masses. Upper abdomen: Postsurgical changes at the GE junction. Prior cholecystectomy. RIGHT renal cyst. No adrenal mass. Increased fecal material in the transverse colon. Osseous structures: Degenerative disc disease in the thoracic spine. CT/CT chest wo con [id number] IMPRESSION: 1. Stable nodule superior segment RIGHT lower lobe measures 7 x 11 x 9 mm. 2. Additional postoperative changes noted in the RIGHT lung with pleural thick ening and fibrosis. No new mass or nodule or increasing size of the nodule. 3. No mediastinal or hilar adenopathy. 4. Postsurgical changes at the GE junction. 5. Prior cholecystectomy.
== END 2025-07-25 17:00 | disposition home or self-care (01) ==
LOC: RAD 17:00
PROVIDERS: PCP Nurse Practitioner Family; Visit Provider Internal Medicine
DX: R91.1 Solitary pulmonary nodule (principal); R93.89 Abnormal findings on diagnostic imaging of other specified body structures; J18.9 Pneumonia, unspecified organism; Z71.85 Encounter for immunization safety counseling
CPT/HCPCS: 71250

== ENCOUNTER 2025-11-02 11:03 | Outpatient (CLI) | payer MEDICARE, OTHER, SELFPAY ==
--- NOTE | 2025-11-02 11:13 | XR_ITS ---
WS: [email or web address] Exam: XR chest 2V* [id number] Date/Time of Exam: 11/02/2025 11:14 AM Reason For Exam: EDEMA/SHORTNESS OF BREATH Comparison 05/06/2024. The lungs are fully expanded. No acute infiltrates. There is eventration and irregularity of the RIGHT diaphragm which appears to be chronic. No pleural effusion. Chronic changes of fibrosis and scarring in the RIGHT upper lobe. The mediastinum is normal in contour. Heart size normal. Mild thoracolumbar scoliosis. Postop changes of the distal RIGHT clavicle. XR/XR chest 2V* [id number] IMPRESSION: 1. No acute cardiopulmonary finding. 2. Chronic findings as above.
== END 2025-11-02 11:04 | disposition home or self-care (01) ==
LOC: RAD 11:07
PROVIDERS: PCP Nurse Practitioner Family; Visit Provider Nurse Practitioner Family
DX: R60.9 Edema, unspecified (principal)
CPT/HCPCS: 71046